=== PATIENT | female | born 1930 | race Caucasian/White ===

== ENCOUNTER 2017-03-22 10:23 | Emergency (ER) | payer OTHER, BC ==
[2017-03-22 11:11] LABS: ADD DIFF? YES; ADD MORPH? NO; ADD SCAN? NO; ATYPICAL LYMPHOCYTE FLAG 60 (0-99); FRAGMENT RBC FLAG 0 (0-99); HEMATOCRIT 35.8 % (38.0-47.0); HEMOGLOBIN 11.4 g/dL (12.6-16.3); LEFT SHIFT FLG 0 (0-99); LIPEMIA HEMOLYSIS FLAG 80 (0-99); MEAN CELL HEMOGLOBIN 30.6 pg (27.9-34.1); MEAN CELL HEMOGLOBIN CONCENTR. 31.8 g/dL (32.4-36.7); MEAN CELL VOLUME 96.2 fL (81.5-99.8); MEAN PLATELET VOLUME 10.7 fL (8.7-11.7); PLATELET CLUMPS FLAG 0 (0-99); PLATELET COUNT 186 10^3/uL (150-400); RED BLOOD CELL COUNT 3.72 10^6/uL (4.18-5.33); RED CELL DISTRIBUTION WIDTH 15.6 % (11.5-15.2)
--- NOTE | 2017-03-22 11:12 | CPEKG ---
Heart Rate: 105 RR Interval: 571 P-R Interval: 200 QRSD Interval: 74 QT Interval: 320 QTC Interval: 423 P [place]: 76 QRS [place]: -46 T Wave [place]: 71 EKG Severity - ABNORMAL ECG - EKG Impression: SINUS TACHYCARDIA EKG Impression: ATRIAL PREMATURE COMPLEX EKG Impression: PROBABLE LEFT ATRIAL ABNORMALITY EKG Impression: LEFT VENTRICULAR HYPERTROPHY EKG Impression: PROBABLE INFERIOR INFARCT, OLD EKG Impression: EXTENSIVE ANTERIOR INFARCT, AGE INDETERMINATE EKG Impression: No significant interval change from 06/15/15 Electronically Signed By: Aneudy Stearns 22-Mar-2017 14:14:00
--- NOTE | 2017-03-22 11:15 | EDPHY ---
H & P Stated Complaint: c/o 1 wk of prod cough/congestion Time Seen by Provider: 03/22/17 10:35 HPI/ROS: This patient called her daughter complaining of a sore throat of a 2 week duration this morning associated with a mild hoarse voice and a history of cough that is occasionally productive of sputum. Patient is unaware of the appearance of the sputum. She states that over the past day or 2 the throat pain is becomes severe and she is not eating or drinking as much due to the odynophagia. The throat pain worsens when she coughs. She has mild chest pain when she coughs but now with a deep breath. She has dyspnea at baseline and is on 2 L nasal cannula O2 at home at night. She is uncertain why she requires a baseline O2. Review of her recent CT angiogram of the chest revealed parenchymal scarring without evidence of PE or other findings. She does not feel that her cough is either worsening or improving recently. However she is having more pain with a cough. ROS: No high fevers or chills. She reports some baseline fatigue HEENT: She reports mild chronic nasal congestion that worsened over the past 2 weeks but no sinus pain. She states her throat is a burning discomfort peak intensity 8/10. No ear pain. No other HEENT complaints Pulmonary: No pleuritic pain. No respiratory distress. No hemoptysis. Cardiovascular: She denies lightheadedness. No chest pain while at rest. No lower extremity swelling or tenderness GI: No belly pain, nausea or vomiting. She does have reduced appetite. Her daughter reports that she only had 2 bites of yogurt this morning for breakfast. : No complaints Integumentary: No complaints Endocrine: Patient reports that her blood glucose has been normal in the morning and typically between 150 and low 200 in the evening recently. 10 point ROS is otherwise negative. Source: Patient, Family Exam Limitations: No limitations (Patient is also accompanied by her daughter who provides history) - Personal History Tetanus Vaccine Date: 2010 - Medical/Surgical History PMH: Her daughter reports that the patient has a history of congestive heart failure. However I reviewed an echocardiogram dated 12/30/2014 that revealed mild LVH, no wall motion abnormalities an EF at that time of 55 Pyelonephritis with sepsis Started on insulin 2 months ago for type 2 diabetes Leukemia-type unknown Hx Asthma: No Hx Chronic Respiratory Disease: No Hx Diabetes: Yes Hx Cardiac Disease: No Hx Renal Disease: No Hx Cirrhosis: No Hx Alcoholism: No Hx HIV/AIDS: No Hx Splenectomy or Spleen Trauma: No Other PMH: PMH: CVA - TEMPORAL ARTERITIS, HTN, DM, high cholesterol, back sx? ....previous compression fxs. cerebellar cva, each side, right sided CVA - Family History Significant Family History: No pertinent family hx - Social History Smoking Status: Former smoker Alcohol Use: None Drug Use: None Additional Social History: Patient lives independently. She does well in terms of taking her medications and living independently per her daughter. This daughter is leaving town with her tomorrow and they plan to have the mother stay with patient's other daughter who also lives in town to assist her with any health needs - Physical Exam Exam: Pleasant elderly female no acute distress. Her initial pulses elevated to around 110. Other vitals are normal except for O2 sat on room air in the mid 80s that corrects to mid 90s on her baseline 2 L nasal cannula O2. General Appearance: Alert, no distress. Eyes: Pupils equal and round no pallor or injection. ENT, Mouth: Mucous membranes moist. Oropharynx: No significant erythema is appreciated. No dysphonia. No drooling or stridor. Respiratory: Mildly diminished at the bases. No rales or rhonchi . Cardiovascular: Regular rate and rhythm. Mild systolic murmur. No JVD. No peripheral edema. No rub. Gastrointestinal: Abdomen is soft and nontender, no masses, bowel sounds normal. Neurological: GCS 15 with no focal sensory or motor deficits. Skin: Warm and dry, no rashes. Musculoskeletal: Neck is supple nontender. Extremities are symmetrical, full range of motion. Psychiatric: Mood and affect normal DIFFERENTIAL DIAGNOSIS: After history and physical exam differential diagnosis was considered for viral pharyngitis, strep pharyngitis, bronchitis, pneumonia, congestive heart failure, acute VA, pericarditis, myocarditis, pyelonephritis, Constitutional: Initial Vital Signs Temperature (C) 36.6 C 03/22/17 10:37 Heart Rate 118 H 03/22/17 10:37 Respiratory Rate 88 H 03/22/17 10:37 Blood Pressure 145/87 H 03/22/17 10:37 O2 Sat (%) 97 03/22/17 10:37 O2 Delivery Mode Room Air O2 (L/minute) 2 Allergies/Adverse Reactions: Iodinated Contrast Media - Oral and [Iodinated Contrast Media - IV Dye] Allergy (Verified 09/23/16 12:47) Home Medications: Medication Instructions Recorded Aspirin [Aspirin 325 mg (*)] 325 mg PO DAILY 07/10/14 Bimatoprost 0.01% [Lumigan 0.01% 1 drops EACHEYE HS 09/23/16 (*)] Furosemide [Lasix 20 MG (*)] 20 mg PO DAILY 09/23/16 Lisinopril [Zestril 5 mg (*)] 5 mg PO DAILY 09/23/16 Potassium Cl [Klor-Con 20 meq (*)] 20 meq PO BID 09/23/16 predniSONE [Prednisone] 15 mg PO DAILY 09/23/16 Calcium [HI-CLAIRE] 500 mg PO DAILY #30 tablet 09/26/16 Carvedilol [Coreg (*)] 12.5 mg PO BIDMEAL #60 tab 09/26/16 Cholecalciferol Vit D3 [Vitamin D3] 400 units PO DAILY #30 tab 09/26/16 levOFLOXACIN [levAQUIN (*)] 750 mg PO DAILY #3 tab 09/26/16 traMADol [Ultram 50 mg (*)] 25 - 50 mg PO Q6HRS PRN #30 tab 09/26/16 Benzonatate [Tessalon Pearles (RX)] 100 mg PO BID PRN #20 cap 03/22/17 Insulin NPH Human 03/22/17 Levalbuterol Inhaler [Xopenex Hfa 2 puffs IH Q4 PRN #1 mdi 03/22/17 Inhaler] Nitrofurantoin Macrobid [Macrobid 100 mg PO BID #10 cap 03/22/17 100 mg (RX)] Medical Decision Making - Diagnostics EKG Interpretation: 12 lead EKG performed shortly after arrival indication cough, dyspnea, rule out coronary syndrome EKG performed at 11:09 a.m. Sinus rhythm 105 Intervals: Normal throughout [place]: Normal Overall assessment sinus tachycardia with PAC, LVH by voltage criteria evidence of old anterior and inferior infarct. I compared this to prior EKG dated June 15, 2015 and appreciate no significant interval change. For complete read please refer to trace master Imaging Results: Imaging Impressions Chest X-Ray 03/22/17 10:53 Impression: Chronic cardiomegaly without failure. No pneumonia. Imaging: I viewed and interpreted images myself ED Course/Re-evaluation: After review of her labs with normal BNP for her age proceeded with a 500 cc normal saline bolus for dehydration with resolution of her tachycardia down to a pulse of 82 and resolution for lightheadedness. Xopenex neb with resolution of coughing. She felt symptomatic improvement in her O2 sat improved from mid to high 80s to low 90s after the Xopenex neb. Studies: Rapid strep is negative, chest x-ray ruled out pneumonia, CBC is normal, BNP is normal for age, troponin is negative, EKG without significant interval change, normal lactate Discussion: Patient presents with viral pharyngitis/laryngitis and viral bronchitis improving with treatment. I think that she had mild dehydration secondary to her throat pain which decreased her p.o. intake. She also has a urinalysis consistent with cystitis. I do not think she has pyelonephritis given lack of fever, CVA tenderness, nausea or vomiting. Counseled her and the patient careful regarding this. She is treated with Macrobid here. 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 No evidence today of pneumonia or sepsis. She improved with treatment. After carefully considering disposition with potential option of observation versus home with daughter I feel that the patient benefits most from home with daughter. Her daughter agrees with this plan. Prior to discharge the patient is feeling improved. I encouraged close follow up with her primary care physician, Dr. Washington for recheck sometime within the next 2-3 days. Patient understands the need to return emergency department for any significant worsening of her symptoms despite the treatment plan - Data Points Laboratory Results: Laboratory Results 03/22/17 11:00 03/22/17 11:00 03/22/17 03/22/17 03/22/17 Unknown 11:11 11:11 WBC RBC Hgb Hct MCV MCH MCHC RDW Plt Count MPV Neut % (Auto) Lymph % (Auto) [place] % (Auto) Eos % (Auto) Baso % (Auto) Nucleat RBC Rel Count Absolute Neuts (auto) Absolute Lymphs (auto) Absolute Monos (auto) Absolute Eos (auto) Absolute Basos (auto) Absolute Nucleated RBC Immature Gran % Seg Neutrophils % Lymphocytes % Monocytes % Immature Gran # Absolute Seg Neuts Absolute Lymphocytes Absolute Monocytes Platelet Estimate Smear Review By [facility] Lactic Acid Sodium Potassium Chloride Carbon Dioxide Anion Gap BUN Creatinine Estimated GFR Glucose Calcium Troponin I NT-Pro-B Natriuret Pep Urine Color YELLOW Urine Appearance CLEAR Urine pH 6.5 (5.0-7.5) Ur Specific [place] 1.020 (1.002-1.030) Urine Protein TRACE H (NEGATIVE) Urine Ketones NEGATIVE (NEGATIVE) Urine Blood 2+ H (NEGATIVE) Urine Nitrate POSITIVE H (NEGATIVE) Urine Bilirubin NEGATIVE (NEGATIVE) Urine Urobilinogen 0.2 EU EU (0.2-1.0) Ur Leukocyte Esterase NEGATIVE (NEGATIVE) Urine RBC 3-5 /hpf H /hpf (0-3) Urine WBC 5-10 /hpf H /hpf (0-3) Ur Epithelial Cells TRACE /lpf /lpf (NONE-1+) Ur Renal Epithelial Cell OCCASIONAL /hpf H /hpf (NONE SEEN) Urine Bacteria 4+ /hpf H /hpf (NONE SEEN) Urine Mucus TRACE /lpf /lpf (NONE-1+) Urine Glucose NEGATIVE (NEGATIVE) Group A Strep Screen NEGATIVE (NEGATIVE) Group A Strep DNA Pending 03/22/17 03/22/17 03/22/17 11:00 11:00 11:00 WBC 7.27 10^3/uL 10^3/uL (3.80-9.50) RBC 3.72 10^6/uL L 10^6/uL (4.18-5.33) Hgb 11.4 g/dL L g/dL (12.6-16.3) Hct 35.8 % L % (38.0-47.0) MCV 96.2 fL fL (81.5-99.8) MCH 30.6 pg pg (27.9-34.1) MCHC 31.8 g/dL L g/dL (32.4-36.7) RDW 15.6 % H % (11.5-15.2) Plt Count 186 10^3/uL 10^3/uL (150-400) MPV 10.7 fL fL (8.7-11.7) Neut % (Auto) Not Reported Lymph % (Auto) Not Reported [place] % (Auto) Not Reported Eos % (Auto) Not Reported Baso % (Auto) Not Reported Nucleat RBC Rel Count 0.0 % % (0.0-0.2) Absolute Neuts (auto) Not Reported Absolute Lymphs (auto) Not Reported Absolute Monos (auto) Not Reported Absolute Eos (auto) Not Reported Absolute Basos (auto) Not Reported Absolute Nucleated RBC 0.00 10^3/uL 10^3/uL (0-0.01) Immature Gran % Not Reported Seg Neutrophils % 28 % % Lymphocytes % 22 % % Monocytes % 50 % % Immature Gran # Not Reported Absolute Seg Neuts 2.0 K/MM3 K/MM3 (1.8-7) Absolute Lymphocytes 1.6 K/mm3 K/mm3 (1.0-4.8) Absolute Monocytes 3.6 K/mm3 H K/mm3 (0-0.8) Platelet Estimate ADEQUATE (ADEQ) Smear Review By Pending VBG Lactic Acid Sodium 136 mEq/L mEq/L (134-144) Potassium 3.4 mEq/L L mEq/L (3.5-5.2) Chloride 97 mEq/L mEq/L (97-110) Carbon Dioxide 27 mEq/l mEq/l (22-31) Anion Gap 12 mEq/L mEq/L (8-16) BUN 12 mg/dL mg/dL (7-23) Creatinine 0.8 mg/dL mg/dL (0.6-1.0) Estimated GFR > 60 Glucose 136 mg/dL H mg/dL (70-100) Calcium 9.0 mg/dL mg/dL (8.5-10.4) Troponin I 0.015 ng/mL ng/mL (0-0.034) NT-Pro-B Natriuret Pep 1750 pg/mL H pg/mL (0-450) Urine Color Urine Appearance Urine pH Ur Specific [place] Urine Protein Urine Ketones Urine Blood Urine Nitrate Urine Bilirubin Urine Urobilinogen Ur Leukocyte Esterase Urine RBC Urine WBC Ur Epithelial Cells Ur Renal Epithelial Cell Urine Bacteria Urine Mucus Urine Glucose Group A Strep Screen Group A Strep DNA 03/22/17 11:00 WBC RBC Hgb Hct MCV MCH MCHC RDW Plt Count MPV Neut % (Auto) Lymph % (Auto) [place] % (Auto) Eos % (Auto) Baso % (Auto) Nucleat RBC Rel Count Absolute Neuts (auto) Absolute Lymphs (auto) Absolute Monos (auto) Absolute Eos (auto) Absolute Basos (auto) Absolute Nucleated RBC Immature Gran % Seg Neutrophils % Lymphocytes % Monocytes % Immature Gran # Absolute Seg Neuts Absolute Lymphocytes Absolute Monocytes Platelet Estimate Smear Review By VBG Lactic Acid 1.3 mmol/L mmol/L (0.7-2.1) Sodium Potassium Chloride Carbon Dioxide Anion Gap BUN Creatinine Estimated GFR Glucose Calcium Troponin I NT-Pro-B Natriuret Pep Urine Color Urine Appearance Urine pH Ur Specific [place] Urine Protein Urine Ketones Urine Blood Urine Nitrate Urine Bilirubin Urine Urobilinogen Ur Leukocyte Esterase Urine RBC Urine WBC Ur Epithelial Cells Ur Renal Epithelial Cell Urine Bacteria Urine Mucus Urine Glucose Group A Strep Screen Group A Strep DNA Medications Given: Discontinued Medications Acetaminophen (Tylenol) 650 mg PO EDNOW ONE Stop: 03/22/17 11:28 Last Admin: 03/22/17 11:33 Dose: 650 mg Sodium Chloride (Ns) 500 mls @ 0 mls/hr IV ONCE ONE; Wide Open PRN Reason: Protocol Stop: 03/22/17 11:53 Last Admin: 03/22/17 12:02 Dose: 500 mls Levalbuterol (Xopenex 1.25mg Neb) 1.25 mg IH EDNOW ONE Stop: 03/22/17 12:11 Last Admin: 03/22/17 12:22 Dose: 1.25 mg Nitrofurantoin Macrocrystals (Macrobid) 100 mg PO EDNOW ONE PRN Reason: Protocol Stop: 03/22/17 12:11 Last Admin: 03/22/17 12:22 Dose: 100 mg Departure - Departure Disposition: Home, Routine, Self-Care Clinical Impression: Cystitis, Dehydration Acute bronchitis Qualifiers: Bronchitis organism: unspecified organism Qualified Code(s): J20.9 - Acute bronchitis, unspecified Pharyngitis Qualifiers: Pharyngitis/tonsillitis etiology: unspecified etiology Qualified Code(s): J02.9 - Acute pharyngitis, unspecified Condition: Good Instructions: Dehydration (ED), Urinary Tract Infection in Women (ED), Pharyngitis (ED), Acute Bronchitis (ED) Additional Instructions: Diagnoses:. Viral bronchitis 2. Viral pharyngitis 3. Bladder infection 4. Dehydration Plan: Drink plenty fluids MDX solution -rinse gargle spit if needed for sore throat. Tylenol in addition if needed 650-1000 mg per 6 hours while awake For cough-Xopenex inhaler with spacer and Tessalon Perles as needed For bladder infection-Macrobid antibiotic Call your primary care physician to arrange follow-up appointment for recheck in 2-3 days Return for any significant worsening despite treatment plan Referrals: Rebeca Washington MD [Primary Care Provider] - As per Instructions Prescriptions: Benzonatate [Tessalon Pearles (RX)] 100 mg PO BID PRN #20 cap PRN Reason: Cough, Mild Levalbuterol Inhaler [Xopenex Hfa Inhaler] 2 puffs IH Q4 PRN #1 mdi PRN Reason: Wheezing Nitrofurantoin Macrobid [Macrobid 100 mg (RX)] 100 mg PO BID #10 cap
[2017-03-22 11:23] LABS: ANION GAP 12 mEq/L (8-16); CARBON DIOXIDE 27 mEq/l (22-31); CHLORIDE 97 mEq/L (97-110); CREATININE 0.8 mg/dL (0.6-1.0); GLOMERULAR FILTRATION RATE > 60; GLUCOSE 136 mg/dL (70-100); POTASSIUM 3.4 mEq/L (3.5-5.2); SODIUM 136 mEq/L (134-144)
[2017-03-22 11:27] VITALS: RESP 16
[2017-03-22] MEDS ORDERED: ACETAMINOPHEN 325 MG TAB PO ONE (11:27)
[2017-03-22 11:31] LABS: COLOR YELLOW; LEUKOCYTE ESTERASE,URINE NEGATIVE (NEGATIVE); NITRITE,URINE POSITIVE (NEGATIVE); PH,URINE 6.5 (5.0-7.5)
[2017-03-22 11:41] LABS: BACTERIA 4+ /hpf (NONE SEEN); MUCUS TRACE /lpf (NONE-1+); RENAL EPITHELIAL CELLS OCCASIONAL /hpf (NONE SEEN)
[2017-03-22 11:42] LABS: TROPONIN I 0.015 ng/mL (0-0.034)
[2017-03-22] MEDS ORDERED: NS 500 ML IV ONE (11:52)
[2017-03-22 12:00] LABS: PLATELET ESTIMATE ADEQUATE (ADEQ)
[2017-03-22] MEDS ORDERED: NITROFURANTOIN MACROBID 100 MG CAP PO ONE (12:10)
[2017-03-22] MEDS ORDERED: LEVALBUTEROL 1.25 MG/3 ML DEYVIAL IH ONE (12:10)
[2017-03-22 14:11] VITALS: BP 104/64; PULSE 99; TEMP 98.4; O2SAT 94
== END 2017-03-22 14:10 | disposition home or self-care (01) ==
LOC: CED 10:23
DX: J02.9 Acute pharyngitis, unspecified (principal); J20.9 Acute bronchitis, unspecified; N30.90 Cystitis, unspecified without hematuria; E86.0 Dehydration; B96.89 Other specified bacterial agents as the cause of diseases classified elsewhere; I10 Essential (primary) hypertension; E11.9 Type 2 diabetes mellitus without complications; Z79.4 Long term (current) use of insulin; Z86.73 Personal history of transient ischemic attack (TIA), and cerebral infarction without residual deficits; Z87.891 Personal history of nicotine dependence; Z79.82 Long term (current) use of aspirin
CPT/HCPCS: 71010-PO; 80048-PO; 81003-PO; 81015-PO; 83605-PO; 83880-PO; 84484-PO; 85025-PO; 87880-PO

== ENCOUNTER → 2017-05-30 | Outpatient (CLI) | payer OTHER, BC | LOC: BHFA 10:45 | PROVIDERS: ATTEND Internal Medicine Cardiovascular Disease | DX: I50.9 Heart failure, unspecified (principal); R06.00 Dyspnea, unspecified ==

== ENCOUNTER → 2017-11-22 | Outpatient (CLI) | payer OTHER, BC | LOC: FIMAGING 10:23 | PROVIDERS: ATTEND Psychiatry & Neurology Neurology | DX: G57.22 Lesion of femoral nerve, left lower limb (principal); E11.9 Type 2 diabetes mellitus without complications; Z85.6 Personal history of leukemia; Z53.8 Procedure and treatment not carried out for other reasons ==

== ENCOUNTER 2017-12-08 14:00 | Outpatient (CLI) | payer OTHER, BC ==
[2017-12-08] MEDS ORDERED: PROPOFOL 200 MG/20 ML VIAL ONE (14:24)
[2017-12-08] MEDS ORDERED: PROPOFOL/EMULSION 500 MG/50 ML BOTTLE IV ONE (14:24)
[2017-12-08] MEDS ORDERED: GADOBUTROL 10 ML VIAL IVP ONE (15:44)
[2017-12-08] MEDS ORDERED: ALBUTEROL 3 ML DEYVIAL IH PRN (16:03)
[2017-12-08] MEDS ORDERED: DEXAMETHASONE 4 MG/ML VIAL IVP PRN (16:03)
[2017-12-08] MEDS ORDERED: ONDANSETRON 4 MG/2 ML VIAL IVP PRN (16:03)
[2017-12-08] MEDS ORDERED: NALOXONE HCL 0.4 MG/ML INJ IVP PRN (16:03)
--- NOTE | 2017-12-08 16:05 | PDANEPAE ---
ANE History of Present Illness MRI Pelvis ANE Past Medical History - Cardiovascular History Hx Hypertension: Yes Hx Arrhythmias: Yes Hx Chest Pain: No Hx Coronary Artery / Peripheral Vascular Disease: No Hx CHF / Valvular Disease: No Hx Palpitations: No Cardiovascular History Comment: a fib? - Pulmonary History Hx COPD: No Hx Asthma/Reactive Airway Disease: No Hx Recent Upper Respiratory Infection: No Hx Oxygen in Use at Home: Yes O2 in Use at Home (L/minute): 2LNC @ night Hx Sleep Apnea: No - Neurologic History Hx Cerebrovascular Accident: Yes Hx Seizures: No Hx Dementia: No Neurologic History Comment: 2009-CVA - Endocrine History Hx Diabetes: Yes Endocrine History Comment: Type II - Renal History Hx Renal Disorders: No - Liver History Hx Hepatic Disorders: No - Neurological & Psychiatric Hx Hx Neurological and Psychiatric Disorders: No - Cancer History Hx Cancer: No - Congenital Disorder History Hx Congenital Disorders: No - GI History Hx Gastrointestinal Disorders: No - Other Health History Other Health History: macular degeneration. glaucoma - Chronic Pain History Chronic Pain: Yes - Surgical History Prior Surgeries: gall bladder removal ANE Review of Systems Review of Systems: - Exercise capacity METS (RN): 2 METS ANE Patient History - Allergies Allergies/Adverse Reactions: Iodinated Contrast- Oral and IV Dye [Iodinated Contrast Media - IV Dye] Allergy (Verified 09/23/16 12:47) - Home Medications Home Medications: Aspirin [Aspirin 325 mg (*)] 325 mg PO DAILY 07/10/14 [Last Taken 12/07/17] Bimatoprost 0.01% [Lumigan 0.01% (*)] 1 drops EACHEYE HS 09/23/16 [Last Taken ] Lisinopril [Zestril 5 mg (*)] 5 mg PO DAILY 09/23/16 [Last Taken 12/07/17] predniSONE [Prednisone] 20 mg PO DAILY 09/23/16 [Last Taken 12/07/17] Carvedilol [Coreg (*)] 12.5 mg PO DAILY 12/01/17 [Last Taken 12/07/17] Herbals/Supplements -Info Only 12/01/17 [Last Taken Unknown] Lantus 9 units 12/01/17 [Last Taken 12/07/17 22:00] Multivitamins [Multivitamin (*)] 1 each PO DAILY 12/01/17 [Last Taken 12/07/17] Pregabalin [Lyrica 75mg (*)] DAILY 12/01/17 [Last Taken 12/07/17] Dorzolamide 2% 1 drop OST 12/08/17 [Last Taken 12/07/17] - Smoking Hx Smoking Status: Former smoker - Family Anes Hx Family Hx Anesthesia Complications: none ANE Labs/Vital Signs - Vital Signs Height: 165.1 cm Weight: 65.771 kg ANE Physical Exam - Airway Neck exam: FROM Mallampati Score: Class 2 - Pulmonary Pulmonary: clear to auscultation - Cardiovascular Cardiovascular: regular rate and rhythym - ASA Status ASA Status: III ANE Anesthesia Plan Anesthesia Plan: GA w LMA
--- NOTE | 2017-12-08 16:47 | POSTANESTH ---
Post Anesthetic Evaluation Cardiovascular Status: Normal, Stable Respiratory Status: Normal, Stable Level of Consciousness/Mental Status: Mildly Sleepy, Arousable Pain Control: Adequate, Prn Tx Ordered Nausea/Vomiting Control: Adequate, Prn Tx Ordered Complications Possibly Related to Anesthesia: None Noted
[2017-12-08] MEDS ORDERED: fentaNYL 100 MCG/2 ML INJ ONE (17:02)
[2017-12-08] MEDS: fentaNYL 100 MCG/2 ML INJ IVP PRN ×3 (17:03→17:14)
[2017-12-08 17:46] VITALS: TEMP 97.7
[2017-12-08 17:50] VITALS: PULSE 95; RESP 17
[2017-12-08 18:33] VITALS: O2SAT 89
[2017-12-08 18:49] VITALS: BP 128/61
== END 2017-12-08 18:55 | disposition home or self-care (01) ==
LOC: FIMAGING 14:00
PROVIDERS: ATTEND Psychiatry & Neurology Neurology
DX: M99.86 Other biomechanical lesions of lower extremity (principal); Z85.6 Personal history of leukemia
CPT/HCPCS: 72197; A9585; J2704; J3010

== ENCOUNTER 2018-11-13 05:09 | Inpatient (IN) | payer OTHER, BC ==
[2018-11-13] MEDS ORDERED: NS 1,000 ML IV ONE (05:38)
--- NOTE | 2018-11-13 05:38 | EDPHY ---
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 ....previous compression fxs. Uses wheelchair when leaves apartment, otherwise uses furntiture - Social History Smoking Status: Former smoker Time Seen by Provider: 11/13/18 05:38 HPI/ROS: HPI CHIEF COMPLAINT: Diarrhea, generalized weakness, abdominal cramping HISTORY OF PRESENT ILLNESS: This patient 88-year-old female, presents to the emergency room generalized weakness since Friday, diarrhea, decreased appetite not eating or drinking anything. Patient has a history of hypertension, diabetes, history of CVA, hyperlipidemia presents emergency generalized weakness and diarrhea. She has had a history of C diff in the past. No vomiting. Denies chest pain. Main complaint fatigue, generalized weakness. Diarrhea. Abdominal cramps and bloating. Past Medical History: History of hypertension, diabetes, CVA, hyperlipidemia, C diff Past Surgical History: No recent surgery Social History: Lives locally. Daughter is at bedside. Family History: Noncontributory ROS REVIEW OF SYSTEMS: 10 Systems were reviewed and negative with the exception of the elements mentioned in the history of present illness. Exam Constitutional nontoxic no acute distress triage nursing summary reviewed, vital signs reviewed, awake/alert. Eyes normal conjunctivae and sclera, EOMI, PERRLA. HENT normal inspection, atraumatic, moist mucus membranes, no epistaxis, neck supple/ no meningismus, no raccoon eyes. Respiratory clear to auscultation bilaterally, normal breath sounds, no respiratory distress, no wheezing. Cardiovascular rate normal, regular rhythm, no murmur, no edema, distal pulses normal. Gastrointestinal soft, non-tender, no rebound, no guarding, normal bowel sounds, no distension, no pulsatile mass. Genitourinary no CVA tenderness. Musculoskeletal no midline vertebral tenderness, full range of motion, no calf swelling, no tenderness of extremities, no meningismus, good pulses, neurovascularly intact. Skin pink, warm, & dry, no rash, skin atraumatic. Neurologic awake, alert and oriented x 3, AAOx3, moves all 4 extremities equally, motor intact, sensory intact, CN II-XII intact, normal cerebellar, normal vision, normal speech. Psychiatric normal mood/affect. Heme/Lymph/Immune no lymphadenopathy. Differential Diagnosis: Differential diagnosis includes but is not limited to and in no particular order: Infection, dehydration, electrolyte disturbance, C diff, Bowel obstruction, appendicitis, gallbladder disease, diverticulitis, colitis, enteritis, perforated viscus, gastritis, GERD, esophagitis, urinary tract infection, pyelonephritis, kidney stones Medical Decision Making: Plan for this patient IV establishment IV fluid bolus , basic blood work, stool studies, CT scan abdomen pelvis with IV contrast, rule out colitis in the setting of abdominal pain and bad diarrhea, check UA. Re-evaluation: 0753: CT scan abdomen pelvis without contrast shows no evidence of colitis however does show an intraluminal mass of the distal ileum. I have admitted this patient to the hospitalist service for generalized weakness , dehydration, diarrhea. I have ordered stool studies. I spoke with Jaclyn who will admit the patient to Dr. Alexandru Powers. Plan for admission for generalized weakness, dehydration, diarrhea Please see full dictation of the CT scan abdomen pelvis without contrast. ( Jose Mayo) Constitutional: Initial Vital Signs Temperature (C) 37.3 C 11/13/18 05:12 Heart Rate 99 11/13/18 05:12 Respiratory Rate 16 11/13/18 05:12 Blood Pressure 123/74 H 11/13/18 05:12 O2 Sat (%) 92 11/13/18 05:12 O2 Delivery Mode Room Air Allergies/Adverse Reactions: Iodinated Contrast- Oral and IV Dye Allergy (Unknown, Verified 11/13/18 05:15) Home Medications: Medication Instructions Recorded Aspirin [Aspirin 325 mg (*)] 325 mg PO DAILY 07/10/14 predniSONE [Prednisone] 20 mg PO DAILY 09/23/16 Multivitamins [Multivitamin (*)] 1 each PO DAILY 12/01/17 Carvedilol [Coreg (*)] 3.125 mg PO BIDMEAL 04/16/18 Dorzolamide/Timolol [Cosopt (*)] 1 drops EACHEYE BID 04/16/18 Latanoprost 0.005% [Xalatan 0.005% 1 drops EACHEYE HS 04/16/18 (*)] Cholecalciferol Vit D3 [Vitamin D3 1,000 units PO DAILY 11/13/18 (*)] Insulin Glargine,Hum.rec.anlog 44 unit SQ HS 11/13/18 [Klever Martin U-100] Medical Decision Making ED Course/Re-evaluation: This patient is a boarder here in the emergency department. We are awaiting urinalysis however she has been incontinent several times. She is refusing Hollingsworth catheter. Additionally, the urine smells quite foul. I will give her 1 dose of ceftriaxone for a presumptive UTI until we can obtain her urinalysis ( Malcolm Adams) - Data Points Laboratory Results: Laboratory Results 11/13/18 06:25 11/13/18 05:56 Medications Given: Aspirin (Aspirin) 325 mg PO DAILY [facility] Stop: 05/13/19 08:59 Last Admin: 11/14/18 15:53 Dose: 325 mg Calcium/Vitamin D (Calcium Carb W/Vit D) 500 mg PO BID [facility] Stop: 05/13/19 20:59 Last Admin: 11/14/18 20:12 Dose: 500 mg Carvedilol (Coreg) 3.125 mg PO BIDMEAL [facility] Stop: 05/12/19 17:59 Last Admin: 11/14/18 15:53 Dose: 3.125 mg Dorzolamide/Timolol (Cosopt) 1 drops EACHEYE BID [facility] Stop: 05/12/19 20:59 Last Admin: 11/14/18 20:23 Dose: Not Given Enoxaparin Sodium (Lovenox) 40 mg SC DAILY [facility] Stop: 05/13/19 08:59 Last Admin: 11/14/18 11:20 Dose: 40 mg Sodium Chloride (Ns) 1,000 mls @ 75 mls/hr IV .CONT [facility]IO Stop: 05/13/19 19:59 Last Admin: 11/14/18 20:12 Dose: 1,000 mls Insulin Human Lispro (Humalog Lispro) 0 unit SC TIDMEAL ANTONIO PRN Reason: Protocol Stop: 05/12/19 11:59 Last Admin: 11/14/18 18:16 Dose: 4 units Latanoprost (Xalatan 0.005%) 1 drops EACHEYE HS [facility] Stop: 05/12/19 20:59 Last Admin: 11/14/18 20:24 Dose: Not Given Prednisone (Prednisone) 20 mg PO DAILY [facility] Stop: 05/13/19 08:59 Last Admin: 11/14/18 15:53 Dose: 20 mg Discontinued Medications Sodium Chloride (Ns) 1,000 mls @ 0 mls/hr IV EDNOW ONE; Wide Open PRN Reason: Protocol Stop: 11/13/18 05:39 Last Admin: 11/13/18 06:01 Dose: 1,000 mls Sodium Chloride (Ns) 1,000 mls @ 75 mls/hr IV CONT [facility] Stop: 05/12/19 09:29 Last Admin: 11/14/18 05:09 Dose: 1,000 mls Ceftriaxone Sodium/Dextrose (Rocephin 1 Gm (Premix)) 50 mls @ 100 mls/hr IV EDNOW ONE PRN Reason: Protocol Stop: 11/13/18 10:17 Last Admin: 11/13/18 10:35 Dose: 50 mls Dextrose/Sodium Chloride (D5w Ns) 1,000 mls @ 75 mls/hr IV CONT [facility] Stop: 11/15/18 03:04 Last Admin: 11/14/18 14:43 Dose: 1,000 mls Departure - Departure Disposition: [facility] Acute Clinical Impression: Generalized weakness Abdominal pain Qualifiers: Abdominal location: generalized Qualified Code(s): R10.84 - Generalized abdominal pain Diarrhea Qualifiers: Diarrhea type: unspecified type Qualified Code(s): R19.7 - Diarrhea, unspecified Condition: Fair
[2018-11-13] MEDS ORDERED: IOHEXOL 300 mgI/ML (OMNIPAQUE) 150 ML BTL IV ONE (06:05)
[2018-11-13 06:56] LABS: PLATELET COUNT 160 10^3/uL (150-400)
--- NOTE | 2018-11-13 08:42 | PDGENHP ---
History and Physical - Chief Complaint decreased po intake with fatigue. - History of Present Illness Patient is an 88-year-old female with past medical history of CVA, hypertension , CML, glaucoma, insulin-dependent diabetes, temporal arteritis and C diff in 2013 was brought in by her daughters for the concerns of generalized weakness generalized aches and pains. They said that over the last couple of weeks their mom has been eating less has had generalized weakness and complains of pain all over her entire body. The patient is alert and oriented tells me that she has not been eating well which is due to decreased appetite. She also has had watery diarrhea over the last few days. She does have some abdominal cramping and discomfort which is generalized and diffuse. She denied any nausea vomiting. She denied any fevers or chills, cough, chest pain. History Information - Allergies/Home Medication List Allergies/Adverse Reactions: Iodinated Contrast- Oral and IV Dye Allergy (Unknown, Verified 11/13/18 05:15) Home Medications: Aspirin [Aspirin 325 mg (*)] 325 mg PO DAILY 07/10/14 [Last Taken 04/15/18] predniSONE [Prednisone] 20 mg PO DAILY 09/23/16 [Last Taken 04/15/18] Multivitamins [Multivitamin (*)] 1 each PO DAILY 12/01/17 [Last Taken 04/15/18] Carvedilol [Coreg (*)] 3.125 mg PO BIDMEAL 04/16/18 [Last Taken 04/15/18] Dorzolamide/Timolol [Cosopt (*)] 1 drops EACHEYE BID 04/16/18 [Last Taken ] Latanoprost 0.005% [Xalatan 0.005% (*)] 1 drops EACHEYE HS 04/16/18 [Last Taken 04/15/18] Cholecalciferol Vit D3 [Vitamin D3 (*)] 1,000 units PO DAILY 11/13/18 [Last Taken Unknown] Insulin Glargine,Hum.rec.anlog [Klever Martin U-100] 44 unit SQ HS 11/13/18 [ Last Taken Unknown] I have personally reviewed and updated: family history, medical history, social history, surgical history Past Medical History: temporal arteritis, htn, cva, glaucoma, iddm, diagnosed with bone cancer. - Past Medical History arthritis, CHF, CVA, diabetes type 2, hypertension Additional medical history: Temporal arteritis. Chronic leukemia, followed by Dr. Adame. Multiple compression fractures s/p kyphoplasty T6, T11. B/L vertebral artery occlusion - Surgical History Additional surgical history: kyphoplasty x2 - Family History Positive for: non-pertinent - Social History Smoking Status: Former smoker Additional social history: Lives alone in an apartment Review of Systems Review of Systems: ROS: 10pt was reviewed & negative except for what was stated in HPI & below Physical Exam Physical Exam: Temp Pulse Resp BP Pulse Ox 37.3 C 104 H 20 154/71 H 92 11/13/18 05:12 11/13/18 06:00 11/13/18 06:00 11/13/18 06:00 11/13/18 06:00 Constitutional: no apparent distress, appears nourished, not in pain Eyes: PERRL, anicteric sclera, EOMI Ears, Nose, Mouth, Throat: moist mucous membranes, hearing normal, ears appear normal, no oral mucosal ulcers Cardiovascular: regular rate and rhythym, no murmur, rub, or gallop, No edema Respiratory: no respiratory distress, no rales or rhonchi, clear to auscultation Gastrointestinal: normoactive bowel sounds, soft, non-tender abdomen, tenderness Genitourinary: no bladder fullness, no bladder tenderness Skin: warm, normal color, no rashes or abrasions, no fluctuance, no induration, No mottled Musculoskeletal: full muscle strength, no muscle tenderness, normal joint ROM, no joint effusions Psychiatric: interacting appropriately, not anxious, not encephalopathic, thought process linear Lymph, Heme, Immunologic: no cervical LAD, no supraclavicular LAD Lab Data & Imaging Review 11/13/18 06:25 11/13/18 05:56 WBC 12.23 10^3/uL (3.80-9.50) H 11/13/18 06:25 RBC 3.08 10^6/uL (4.18-5.33) L 11/13/18 06:25 Hgb 10.4 g/dL (12.6-16.3) L 11/13/18 06:25 Hct 33.0 % (38.0-47.0) L 11/13/18 06:25 MCV 107.1 fL (81.5-99.8) H 11/13/18 06:25 MCH 33.8 pg (27.9-34.1) 11/13/18 06:25 MCHC 31.5 g/dL (32.4-36.7) L 11/13/18 06:25 RDW 14.2 % (11.5-15.2) 11/13/18 06:25 Plt Count 160 10^3/uL (150-400) 11/13/18 06:25 MPV 11.2 fL (8.7-11.7) 11/13/18 06:25 Neut % (Auto) Not Reported 11/13/18 06:25 Lymph % (Auto) Not Reported 11/13/18 06:25 Avery % (Auto) Not Reported 11/13/18 06:25 Eos % (Auto) Not Reported 11/13/18 06:25 Baso % (Auto) Not Reported 11/13/18 06:25 Nucleat RBC Rel Count Not Reported 11/13/18 06:25 Absolute Neuts (auto) Not Reported 11/13/18 06:25 Absolute Lymphs (auto) Not Reported 11/13/18 06:25 Absolute Monos (auto) Not Reported 11/13/18 06:25 Absolute Eos (auto) Not Reported 11/13/18 06:25 Absolute Basos (auto) Not Reported 11/13/18 06:25 Absolute Nucleated RBC Not Reported 11/13/18 06:25 Immature Gran % Not Reported 11/13/18 06:25 Seg Neutrophils % 45.0 % 11/13/18 06:25 Band Neutrophils % 1.0 % 11/13/18 06:25 Lymphocytes % 12.0 % 11/13/18 06:25 Monocytes % 41.0 % 11/13/18 06:25 Eosinophils % 0.0 % 11/13/18 06:25 Basophils % 1.0 % 11/13/18 06:25 Metamyelocytes % 0.0 % 11/13/18 06:25 Myelocytes % 0.0 % 11/13/18 06:25 Promyelocytes % 0.0 % 11/13/18 06:25 Blast Cells % 0.0 % 11/13/18 06:25 Immature Gran # Not Reported 11/13/18 06:25 Absolute Seg Neuts 5.50 10^3/uL (1.70-6.50) 11/13/18 06:25 Absolute Band Neuts 0.12 10^3/uL (0.00-0.70) 11/13/18 06:25 Absolute Lymphocytes 1.47 10^3/uL (1.00-3.00) 11/13/18 06:25 Absolute Monocytes 5.01 10^3/uL (0.30-0.80) H 11/13/18 06:25 Absolute Eosinophils 0.00 10^3/uL (0.03-0.40) L 11/13/18 06:25 Absolute Basophils 0.12 10^3/uL (0.02-0.10) H 11/13/18 06:25 Absolute Metamyelocyte 0.00 10^3/mL (0.00-0.00) 11/13/18 06:25 Absolute Myelocytes 0.00 10^3/mL (0.00-0.00) 11/13/18 06:25 Absolute Promyelocytes 0.00 10^3/uL (0.00-0.00) 11/13/18 06:25 Absolute Plasma Cells 0.00 10^3/uL (0.00-0.00) 11/13/18 06:25 Nucleated RBCs 0 /100 WBC (0-0) 11/13/18 06:25 Atypical Lymphocytes 2+ H 11/13/18 06:25 Absolute Blast Cells 0.00 10^3/uL (0.00-0.00) 11/13/18 06:25 Plasma Cells % 0.0 % 11/13/18 06:25 Platelet Estimate ADEQUATE (ADEQ) 11/13/18 06:25 VBG Lactic Acid 1.4 mmol/L (0.7-2.1) 11/13/18 06:20 Sodium 136 mEq/L (135-145) 11/13/18 05:56 Potassium 4.9 mEq/L (3.5-5.2) 11/13/18 05:56 Chloride 107 mEq/L (97-110) 11/13/18 05:56 Carbon Dioxide 20 mEq/l (22-31) L 11/13/18 05:56 Anion Gap 9 mEq/L (6-14) 11/13/18 05:56 BUN 20 mg/dL (7-23) 11/13/18 05:56 Creatinine 0.9 mg/dL (0.6-1.0) 11/13/18 05:56 Estimated GFR 59 11/13/18 05:56 Glucose 146 mg/dL (70-100) H 11/13/18 05:56 Calcium 8.6 mg/dL (8.5-10.4) 11/13/18 05:56 Total Bilirubin 2.4 mg/dL (0.1-1.4) H 11/13/18 05:56 Conjugated Bilirubin 0.8 mg/dL (0.0-0.5) H 11/13/18 05:56 Unconjugated Bilirubin 1.6 mg/dL (0.0-1.1) H 11/13/18 05:56 AST 63 IU/L (14-46) H 11/13/18 05:56 ALT 26 IU/L (9-52) 11/13/18 05:56 Alkaline Phosphatase 44 IU/L (38-126) 11/13/18 05:56 Total Protein 6.9 g/dL (6.3-8.2) 11/13/18 05:56 Albumin 3.7 g/dL (3.5-5.0) 11/13/18 05:56 Lipase 200 IU/L (23-300) 11/13/18 05:56 Specimen Hemolysis 190 11/13/18 05:56 Assessment & Plan Assessment: Abdominal pain- who I reviewed the CT scan of her abdomen which shows a 2.6 cm intraluminal mass near her cecum and ileum. I discussed the case with Radiology who feels that better characterization would be available if we obtained a small-bowel follow-through with barium swallow. She has a mild white count and transaminitis with mild hyperbilirubinemia and so can't rule out concurrent infection as well. She has a history of C diff in 2014 x2. -barium swallow with small bowel follow-through -GI pathogen panel -IV hydration -nothing by mouth except for sips -monitor LFTs -may need general surgery evaluation but will await results of small bowel follow through Diarrhea (Acute)- could be related to infection or to partial obstruction by mass found in the cecum. Check-in GI pathogen panel and obtaining small-bowel follow-through today Macrocytic anemia- no history of alcohol abuse. Does have a history of CML. Will check B12 and folate to start Insulin-dependent diabetes- takes Lantus and basaglar. Hold and cover with sliding scale insulin History of CVA-on aspirin and Coreg. Continue for now Hypertension- continue carvedilol Glaucoma-continue Xalatan and Cosopt eyedrops Giant cell arteritis- takes prednisone 20 mg daily will continue for now Prophylaxis- SCDs and heparin Fluids-intravenous saline Electrolytes-within normal limits Nutrition-NPO with sips Cor-full code Dispo-will admit inpatient expect greater than 2 midnight stay for evaluation of mass and weakness
[2018-11-13] MEDS ORDERED: ACETAMINOPHEN 325 MG TAB PO PRN (09:20)
[2018-11-13] MEDS ORDERED: ONDANSETRON DISINTEGRATING 4 MG TAB PO PRN (09:20)
[2018-11-13] MEDS ORDERED: ONDANSETRON 4 MG/2 ML VIAL IVP PRN (09:20)
[2018-11-13] MEDS ORDERED: D50W 25 GM/50 ML SYR IVP PRN (09:25)
--- NOTE | 2018-11-13 14:12 | PDMN ---
Medical Necessity Medical necessity: Pt meets IP criteria as of 11/13/18 per and MCG M-05 ( abdominal pain, undiagnosed); est los > 2 mn for ongoing tx and management of abdominal pain with diarrhea, weakness, and loss of appetite as well as intraluminal mass noted on CT; requiring further workup, pain management, IVF, and management of other conditions including macrocytic anemia, insulin dependent DM, CVA, HTN, glaucoma, and giant cell arthritis
[2018-11-13] MEDS: INSULIN LISPRO 100 UNIT/ML SC SCH ×2 (14:40→18:15)
[2018-11-13] MEDS: NS 1,000 ML IV SCH (16:44)
[2018-11-13] MEDS: CARVEDILOL 3.125 MG TAB PO SCH (18:20)
[2018-11-13] MEDS: DORZOLAMIDE/TIMOLOL 10 ML OPHT.BTL EACHEYE SCH (21:02)
[2018-11-13] MEDS: LATANOPROST 0.005% 2.5 ML OPHT DROPS EACHEYE SCH (21:02)
[2018-11-14] MEDS: NS 1,000 ML IV SCH ×2 (05:09→20:12)
[2018-11-14 05:22] LABS: PLATELET COUNT 156 10^3/uL (150-400)
[2018-11-14] MEDS ORDERED: CIPROFLOXACIN 500 MG TAB PO SCH (09:00)
[2018-11-14] MEDS: INSULIN LISPRO 100 UNIT/ML SC SCH ×3 (10:30→18:16)
[2018-11-14] MEDS: ENOXAPARIN 40 MG/0.4 ML SYR SC SCH (11:20)
[2018-11-14] MEDS: CARVEDILOL 3.125 MG TAB PO SCH ×2 (11:22→15:53)
[2018-11-14] MEDS: ASPIRIN 325 MG TAB PO SCH ×2 (11:22→15:53)
[2018-11-14] MEDS: predniSONE 10 MG TAB PO SCH ×2 (11:23→15:53)
[2018-11-14] MEDS: DORZOLAMIDE/TIMOLOL 10 ML OPHT.BTL EACHEYE SCH ×2 (11:23→20:23)
[2018-11-14] MEDS ORDERED: D5W NS 1,000 ML IV SCH (13:45)
--- NOTE | 2018-11-14 16:12 | ASMTCMCOM ---
CM Note CM Note Notes: Pt is a 88 year old female, presents with generalized pain and weakness. Pt has history of CVA, hypertension, CML, glaucoma, diabetes, temporal arteritis and C-diff in 2014. Bowel scan today. PT recommending SNF. CM to follow. Plan: SNF Date Signed: 11/14/2018 04:11 PM Electronically Signed By:ELLA Khan
--- NOTE | 2018-11-14 19:14 | HOSPPROG ---
Hospitalist Progress Note Assessment/Plan: #E coli (Eaec) GI infection: supportive care. Will have to monitor closely with abx (needed for UTI) #UTI: culture pending, Ceftriaxone #Weakness: uses furniture at home to ambulate; PT/OT evaluation #Leukocytosis: resolved #Diet: ADAT #Disp: inpatient admission for IVFs, PT Subjective: no BM today; watery stool yesterday Objective: Vital Signs Temp Pulse Resp BP Pulse Ox 37.3 C 90 18 128/51 H 93 11/14/18 15:43 11/14/18 15:53 11/14/18 15:43 11/14/18 15:53 11/14/18 15:43 Microbiology 11/13/18 21:15 Gastrointestinal Tract Panel (PCR) - Final Stool E.coli Enteroaggregative(Eaec) Laboratory Results 11/14/18 04:58 11/14/18 04:58 11/13/18 11/14/18 11/15/18 05:59 05:59 05:59 Intake Total 500 Balance 500 - Time Spent With Patient Time Spent with Patient: greater than 35 minutes Time Spent with Patient: Greater than 35 minutes spent on this patients care, greater than 50% of time spent counseling, educating, and coordinating care regarding the above mentioned plan. - Physical Exam Constitutional: other (pale) Ears, Nose, Mouth, Throat: moist mucous membranes Cardiovascular: regular rate and rhythym Respiratory: no respiratory distress Gastrointestinal: normoactive bowel sounds, soft, non-tender abdomen Genitourinary: no bladder fullness Skin: warm Musculoskeletal: full muscle strength Neurologic: AAOx3 ICD10 Worksheet Patient Problems: Problems Problem Status Onset Abdominal pain Acute Diarrhea Acute Weakness Acute Acute delirium Acute Adrenal suppression Acute C. difficile colitis Acute C. difficile diarrhea Acute 12/30/14 DVT prophylaxis Acute Dizziness Acute Fever Acute Left ankle pain Acute Lethargy Acute Macrocytosis Acute Sepsis Acute Systolic murmur Acute Tachycardia Acute Temporal arteritis Acute Tongue ulceration Acute UTI (urinary tract infection) Acute
[2018-11-14] MEDS: CALCIUM CARB W/VIT D 500 MG TAB PO SCH (20:12)
[2018-11-14] MEDS: LATANOPROST 0.005% 2.5 ML OPHT DROPS EACHEYE SCH (20:24)
[2018-11-14] MEDS ORDERED: PROTOCOL K PHOSPHATE 1 DOSE IV PRN (21:05)
[2018-11-15] MEDS: CALCIUM CARB W/VIT D 500 MG TAB PO SCH ×2 (09:06→21:18)
[2018-11-15] MEDS: RIFAXIMIN 200 MG TAB PO SCH ×3 (09:06→21:18)
[2018-11-15] MEDS: CARVEDILOL 3.125 MG TAB PO SCH ×2 (09:07→16:05)
[2018-11-15] MEDS: predniSONE 10 MG TAB PO SCH (09:07)
[2018-11-15] MEDS: ASPIRIN 325 MG TAB PO SCH (09:07)
[2018-11-15] MEDS: ENOXAPARIN 40 MG/0.4 ML SYR SC SCH (09:10)
[2018-11-15] MEDS: NS 1,000 ML IV SCH (09:13)
[2018-11-15] MEDS: INSULIN LISPRO 100 UNIT/ML SC SCH ×3 (09:39→17:38)
[2018-11-15] MEDS: DORZOLAMIDE/TIMOLOL 10 ML OPHT.BTL EACHEYE SCH ×2 (09:39→21:19)
[2018-11-15] MEDS ORDERED: K PHOS 10 MMOL in D5W 250 ML IV ONE (12:00)
--- NOTE | 2018-11-15 14:25 | PDCONSULT ---
[employer] Note: Infectious Diseases Consult Note Impression: 88-year-old woman with acute diarrhea and positive stool PCR test for entero aggregate of E coli. It is unclear if this is truly pathogenic in this setting but given her chronic prednisone use at 20 mg daily is reasonable to treat this as though up for traveler's diarrhea with rifaximin, which also gives a secondary benefits of being ineffective preventive therapy for C diff colitis while receiving systemic ceftriaxone. The stool multiplex PCR testing also has Cryptosporidium, cycles for, Giardia on the panel which are all negative; her chronic steroid use does put her at risk for 1 of these more opportunistic type pathogens. If her diarrhea continues in spite of rifaximin may need to consider further stool testing to evaluate for micro spur radius species, cysto Isospora, and more specific testing for Giardia. 1. Acute infectious diarrhea with anteroapical gait of E coli 2. Pyuria likely representing cystitis 3. History of temporal arteritis 4. Immunosuppressed patient due to prednisone at 20 mg daily; 0.3 milligrams/ kilogram per day 5. 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 Start rifaximin 200 mg p.o. Three times daily x3 days 2. Agree with short course of ceftriaxone for pyuria, urine culture pending 3. Discussed potential side effects of ceftriaxone which include antibiotic associated diarrhea, rash, C diff colitis and the fact that rifaximin will likely prevent C diff colitis Sp Hooker MD Infectious Diseases Chief Complaint: Diarrhea Requesting Provider: Dr. Stahl Reason for Referral: Consultation was requested by Dr. Stahl regarding antimicrobial management. HPI: 88-year-old woman presented to the emergency department with 1-2 days of diarrhea. She notes no episodes of diarrhea until the day prior to admission when she developed loose to watery stools that came on without a clear precipitant. She did not have any abdominal pain prior to, during, or after moving her bowels. She continued to have 3-5 watery bowel movements per day which prompted her to come to the emergency department. She notes ongoing diarrhea since admission with an episode to day that occurred after eating regular food. She does note that she has had a poor appetite and has not been eating much at home dating back approximately 2-3 weeks prior to admission. In spite of that she is not certain if she was avoiding food because she had diarrhea dating back that far. She has not had fever or night sweats prior to admission but she does state that she has been chilled more recently. She notes no rash around the time of onset of diarrhea and no rash dating back weeks. She has not had nausea or emesis, but her appetite has been so poor she states she has not been avoiding eating. She use to purchase bag to let is from the store up until the last outbreak of E coli which prompted her to stop eating store bowel lettuce. She notes no new foods or purchasing foods from [employer] directly. She lives alone sono contacts of eaten the same foods. She does have a temporal arteritis and takes 20 mg of prednisone daily. She has been attempted to be tapered to lower prednisone doses in the past but her temporal arteritis flares at anything below 20 mg daily. She has had to have episodes where the prednisone dose was increased but this is not occurred in the recent past. She is noted to have CMML but is not on therapy. She has no pets at home, has not visited friends or family on farms or ranch is , she does not live near farm or [place]. She has not traveled internationally for many years. She has city water and does not drink well water. Travel history: No history of travel in the past year. Past Medical History: Temporal arteritis, takes prednisone 20 mg daily chronically; CMML not currently on therapy Past Surgical History: No abdominal surgeries Social History: Does not currently smoke cigarettes, stop smoking decades prior to admission; drinks a occasional alcoholic beverage, no consumption of marijuana products; no illicit drug use; lives alone Family History: No family members with recurrent infections Allergies: IV contrast Medications: Reviewed in medical record and confirmed with patient. ROS: 10 organ systems reviewed; pertinent positives and negatives listed in the HPI, all other organ systems negative. Physical Exam: VS: Reviewed Gen: No acute distress; Breathing comfortably without supplemental oxygen; Able to speak in complete sentences Eyes: No conjunctival injection; No scleral icterus HENT: No gross deformities Neck: No limitation in range of motion Pulm: Breath sounds clear to the bases bilaterally; No wheeze, rhonchi, or rales CV: Normal S1 and S2; Regular rate and rhythm; No murmurs, rubs, or gallops; No lower extremity edema Abd: Not distended; obese; hyper-active bowel sounds; Soft; Non-tender Skin: A full skin exam including exposed bilateral upper extremities, bilateral lower extremities to the knees, face, neck, abdomen, chest, and back performed; Skin intact, warm, with no rash MSK: Joints without erythema or edema; No gross limitation in range of motion Ext: No clubbing or cyanosis Neuro: Awake and alert Psych: Normal mood and affect Labs/Imaging: All microbiology testing (culture and non-culture) reviewed in the medical record. Personally reviewed and interpreted the images of the following radiographs: CT abdomen pelvis from 11/13 showing no evidence for transmural colonic wall thickening or edema. Medications Generic Name Dose Route Start Last Admin Trade Name Freq PRN Reason Stop Dose Admin Ceftriaxone Sodium/Dextrose 50 mls @ 100 mls/hr 11/15/18 09:00 11/15/18 12:24 Rocephin 1 Gm (Premix) IV 12/15/18 08:59 50 mls DAILY [facility] Protocol Rifaximin 200 mg 11/15/18 09:00 11/15/18 09:06 Xifaxan PO 11/18/18 08:59 200 mg TID [facility] Protocol Microbiology 11/13/18 21:15 Stool Gastrointestinal Tract Panel (PCR) - Final E.coli Enteroaggregative(Eaec) 11/14/18 14:30 Urine,Clean Catch Urine Culture - Preliminary Laboratory Tests 11/13/18 11/14/18 11/14/18 06:25 04:58 04:58 WBC 12.23 H 9.23 Hgb 10.4 L 10.0 L Plt Count 160 156 Absolute Seg Neuts 5.50 5.08 Absolute Monocytes 5.01 H 2.95 H Creatinine 0.7 AST 38 ALT 27 Total Protein 5.5 L Albumin 2.9 L Urine Protein Urine Blood Ur Leukocyte Esterase Urine RBC Urine WBC 11/14/18 14:30 WBC Hgb Plt Count Absolute Seg Neuts Absolute Monocytes Creatinine AST ALT Total Protein Albumin Urine Protein 1+ H Urine Blood 2+ H Ur Leukocyte Esterase 2+ H Urine RBC 10-15 H Urine WBC 50-182 H Ongoing monitoring for antimicrobial toxicity with: CBC, BMP.
--- NOTE | 2018-11-15 15:00 | HOSPPROG ---
Hospitalist Progress Note Assessment/Plan: #E coli (Eaec) GI infection: supportive care. #UTI: culture pending, Ceftriaxone. Rifaximin added to prevent C diff given chronic immunosuppression #Weakness: uses furniture at home to ambulate; PT/OT evaluation #Leukocytosis: resolved #Chronic immunosuppression: with prednisone. Add Ca/Vit D #Suspect depression: per family, has no motivation to get off couch. She feels isolated bc hearing poor. Doesn't enjoy foods -asked her to consider SSRI #Weakness: SNF recommended #Diet: ADAT #Disp: inpatient admission for IVFs, PT Daughter bedside and questions answered Subjective: appetite better. Ate toast, egg this morning. Objective: Vital Signs Temp Pulse Resp BP Pulse Ox 36.4 C 110 H 18 139/64 H 96 11/15/18 08:00 11/15/18 11:23 11/15/18 11:23 11/15/18 11:23 11/15/18 11:23 Laboratory Results 11/14/18 04:58 11/14/18 04:58 11/14/18 11/15/18 11/16/18 05:59 05:59 05:59 Intake Total 500 300 Balance 500 300 - Time Spent With Patient Time Spent with Patient: greater than 35 minutes Time Spent with Patient: Greater than 35 minutes spent on this patients care, greater than 50% of time spent counseling, educating, and coordinating care regarding the above mentioned plan. - Physical Exam Constitutional: other (appears brighter today) Eyes: PERRL Ears, Nose, Mouth, Throat: moist mucous membranes Cardiovascular: regular rate and rhythym Respiratory: no respiratory distress Gastrointestinal: normoactive bowel sounds, soft, non-tender abdomen Genitourinary: no bladder fullness, No knutson in urethra Skin: warm Musculoskeletal: full muscle strength Neurologic: CN II-XII Intact Psychiatric: flat affect ICD10 Worksheet Patient Problems: Problems Problem Status Onset Abdominal pain Acute Diarrhea Acute Weakness Acute Acute delirium Acute Adrenal suppression Acute C. difficile colitis Acute C. difficile diarrhea Acute 12/30/14 DVT prophylaxis Acute Dizziness Acute Fever Acute Left ankle pain Acute Lethargy Acute Macrocytosis Acute Sepsis Acute Systolic murmur Acute Tachycardia Acute Temporal arteritis Acute Tongue ulceration Acute UTI (urinary tract infection) Acute
[2018-11-15] MEDS: TEARS/DEXTRAN 70/HYPROMELLOSE 15 ML OPHT.BTL EACHEYE PRN (21:18)
[2018-11-15] MEDS: LATANOPROST 0.005% 2.5 ML OPHT DROPS EACHEYE SCH (21:19)
[2018-11-15] MEDS ORDERED: diphenhydrAMINE 25 MG CAP PO PRN (23:46)
[2018-11-16] MEDS: NS 1,000 ML IV SCH (02:45)
[2018-11-16] MEDS: RIFAXIMIN 200 MG TAB PO SCH ×3 (08:34→21:47)
[2018-11-16] MEDS: CARVEDILOL 3.125 MG TAB PO SCH ×2 (08:34→17:22)
[2018-11-16] MEDS: CALCIUM CARB W/VIT D 500 MG TAB PO SCH ×2 (08:34→21:47)
[2018-11-16] MEDS: ENOXAPARIN 40 MG/0.4 ML SYR SC SCH (08:34)
[2018-11-16] MEDS: predniSONE 10 MG TAB PO SCH (08:35)
[2018-11-16] MEDS: ASPIRIN 325 MG TAB PO SCH (08:38)
[2018-11-16] MEDS: INSULIN LISPRO 100 UNIT/ML SC SCH ×3 (08:40→18:26)
[2018-11-16] MEDS: TEARS/DEXTRAN 70/HYPROMELLOSE 15 ML OPHT.BTL EACHEYE PRN ×2 (08:41→21:46)
[2018-11-16] MEDS: DORZOLAMIDE/TIMOLOL 10 ML OPHT.BTL EACHEYE SCH ×2 (08:46→21:52)
--- NOTE | 2018-11-16 12:21 | PCMIDPN ---
Assessment/Plan: Assessment: Diarrhea an 88-year-old female-mostly resolved. Patient had 1 episode yesterday and none so far today. She was placed empirically on rifaximin 200 mg 3 times a day. Also being covered with ceftriaxone due to unexplained pyuria with possible diagnosis of urinary tract infection. Patient is feeling moderately improved overall. Unclear as to what the etiology of her presentation specifically is. The multiple positive results from the multiplex PCR test clearly are not all responsible for her presentation and it is unknown whether any of them are responsible. Plan to continue the treatment course as outlined yesterday and follow for clinical response. Urine culture is not growing anything as of yet. Plan: 1. Continue both ceftriaxone and rifaximin. 2. Follow in diarrhea symptoms. 3. Follow up on urine cultures. 11/16/18 14:01 Subjective: Patient is resting in her hospital bed. She reports no new complaints. States that she is feeling somewhat better. Denies any diarrhea so far today and only had 1 event yesterday per the patient. No abdominal pain. No fevers. Objective: Ceftriaxone # 3 Rifaximin # 2 Vital Signs Temp Pulse Resp BP Pulse Ox 36.5 C 98 16 145/72 H 92 11/16/18 12:00 11/16/18 12:00 11/16/18 12:00 11/16/18 12:00 11/16/18 12:00 Laboratory Results 11/14/18 04:58 11/14/18 04:58 11/15/18 11/16/18 11/17/18 05:59 05:59 05:59 Intake Total 300 1300 Balance 300 1300 - Physical Exam General Appearance: WD/WN, alert, no apparent distress, non-toxic Respiratory: lungs clear, normal breath sounds, No respiratory distress Cardiac/Chest: regular rate, rhythm, No tachycardia Abdomen: non-tender, soft Skin: normal color, warm/dry, No rash Neuro/Psych: alert, normal mood/affect, oriented x 3 ICD10 Worksheet Patient Problems: Problems Problem Status Onset Abdominal pain Acute Diarrhea Acute Weakness Acute Acute delirium Acute Adrenal suppression Acute C. difficile colitis Acute C. difficile diarrhea Acute 12/30/14 DVT prophylaxis Acute Dizziness Acute Fever Acute Left ankle pain Acute Lethargy Acute Macrocytosis Acute Sepsis Acute Systolic murmur Acute Tachycardia Acute Temporal arteritis Acute Tongue ulceration Acute UTI (urinary tract infection) Acute
--- NOTE | 2018-11-16 14:09 | HOSPPROG ---
Hospitalist Progress Note Assessment/Plan: #E coli (Eaec) GI infection: supportive care. #UTI: culture NGTD. Day 2/3 CTX with rifaximin #Weakness: uses furniture at home to ambulate; agreeable to SNF #Leukocytosis: resolved #Chronic immunosuppression: with prednisone. Add Ca/Vit D #Suspect depression: per family, has no motivation to get off couch. She feels isolated bc hearing poor. Doesn't enjoy foods -asked her to consider SSRI #Weakness: SNF recommended #Diet: ADAT #Disp: inpatient admission for IVFs, PT Subjective: eating more today. No diarrhea today Objective: Vital Signs Temp Pulse Resp BP Pulse Ox 36.5 C 98 16 145/72 H 92 11/16/18 12:00 11/16/18 12:00 11/16/18 12:00 11/16/18 12:00 11/16/18 12:00 Laboratory Results 11/14/18 04:58 11/14/18 04:58 11/15/18 11/16/18 11/17/18 05:59 05:59 05:59 Intake Total 300 1300 Balance 300 1300 - Time Spent With Patient Time Spent with Patient: greater than 35 minutes Time Spent with Patient: Greater than 35 minutes spent on this patients care, greater than 50% of time spent counseling, educating, and coordinating care regarding the above mentioned plan. - Physical Exam Constitutional: other (appears brighter) Eyes: PERRL Ears, Nose, Mouth, Throat: moist mucous membranes Cardiovascular: regular rate and rhythym Respiratory: no respiratory distress Gastrointestinal: normoactive bowel sounds, tenderness Genitourinary: No no bladder tenderness, No knutson in urethra Musculoskeletal: full muscle strength Neurologic: AAOx3, CN II-XII Intact ICD10 Worksheet Patient Problems: Problems Problem Status Onset Abdominal pain Acute Diarrhea Acute Weakness Acute Acute delirium Acute Adrenal suppression Acute C. difficile colitis Acute C. difficile diarrhea Acute 12/30/14 DVT prophylaxis Acute Dizziness Acute Fever Acute Left ankle pain Acute Lethargy Acute Macrocytosis Acute Sepsis Acute Systolic murmur Acute Tachycardia Acute Temporal arteritis Acute Tongue ulceration Acute UTI (urinary tract infection) Acute
--- NOTE | 2018-11-16 15:42 | ASMTCMCOM ---
CM Note CM Note Notes: Plan of care reviewed with MD. Patient is to go to SNF rehab prior to dc to home. Referrals via allscripts. Per patient she has stayed at [facility] in the past. Spoke with daughter Selene who also wishes to elect [facility] as facility of choice. CM to follow. Plan: To SNF rehab Date Signed: 11/16/2018 03:41 PM Electronically Signed By:Mechelle Garnett RN
[2018-11-16] MEDS: hydrALAZINE 10 MG TAB PO PRN (17:24)
[2018-11-16] MEDS: LATANOPROST 0.005% 2.5 ML OPHT DROPS EACHEYE SCH (21:52)
[2018-11-17] MEDS: hydrALAZINE 10 MG TAB PO PRN (04:22)
[2018-11-17] MEDS: CARVEDILOL 3.125 MG TAB PO SCH ×2 (06:46→18:15)
[2018-11-17] MEDS ORDERED: CARVEDILOL 3.125 MG TAB PO ONE (07:00)
[2018-11-17] MEDS ORDERED: amLODIPine BESYLATE 5 MG TAB PO SCH (09:00)
[2018-11-17] MEDS: ENOXAPARIN 40 MG/0.4 ML SYR SC SCH (09:23)
[2018-11-17] MEDS: ASPIRIN 325 MG TAB PO SCH (09:23)
[2018-11-17] MEDS: RIFAXIMIN 200 MG TAB PO SCH (09:23)
[2018-11-17] MEDS: CALCIUM CARB W/VIT D 500 MG TAB PO SCH ×2 (09:23→21:37)
[2018-11-17] MEDS: DORZOLAMIDE/TIMOLOL 10 ML OPHT.BTL EACHEYE SCH ×2 (09:24→21:37)
[2018-11-17] MEDS: INSULIN LISPRO 100 UNIT/ML SC SCH ×3 (09:24→18:16)
[2018-11-17] MEDS: predniSONE 10 MG TAB PO SCH (09:24)
[2018-11-17] MEDS ORDERED: amLODIPine BESYLATE 5 MG TAB PO ONE (13:24)
--- NOTE | 2018-11-17 13:43 | HOSPPROG ---
Hospitalist Progress Note Assessment/Plan: #E coli (Eaec) GI infection: supportive care. #UTI: completed 3 days abx #Uncontrolled HTN: add Norvasc #Dyspnea: CXR pending. Diastolic function o echo 2014 #Weakness: improving; SNF at [place] #Leukocytosis: resolved #Chronic immunosuppression: with prednisone. Add Ca/Vit D #Suspect depression: per family, has no motivation to get off couch. She feels isolated bc hearing poor. Doesn't enjoy foods -asked her to consider SSRI #Diet: ADAT #Disp: inpatient admission for IVFs, PT Daughter bedside and questions answered Subjective: No MORGAN, chest pain Objective: Vital Signs Temp Pulse Resp BP Pulse Ox 36.5 C 88 18 180/77 H 90 L 11/17/18 11:55 11/17/18 11:55 11/17/18 11:55 11/17/18 11:55 11/17/18 11:55 Microbiology 11/14/18 14:30 Urine Culture - Final Urine,Clean Catch Laboratory Results 11/14/18 04:58 11/14/18 04:58 11/16/18 11/17/18 11/18/18 05:59 05:59 05:59 Intake Total 1300 750 Balance 1300 750 - Time Spent With Patient Time Spent with Patient: greater than 35 minutes Time Spent with Patient: Greater than 35 minutes spent on this patients care, greater than 50% of time spent counseling, educating, and coordinating care regarding the above mentioned plan. - Physical Exam Constitutional: no apparent distress Eyes: PERRL Ears, Nose, Mouth, Throat: moist mucous membranes Cardiovascular: regular rate and rhythym, No edema Respiratory: other (decreased BS right mid-lung to base), No inspiratory crackles Gastrointestinal: normoactive bowel sounds Genitourinary: no bladder fullness Skin: warm Musculoskeletal: full muscle strength Neurologic: AAOx3, CN II-XII Intact Psychiatric: interacting appropriately ICD10 Worksheet Patient Problems: Problems Problem Status Onset Abdominal pain Acute Diarrhea Acute Weakness Acute Acute delirium Acute Adrenal suppression Acute C. difficile colitis Acute C. difficile diarrhea Acute 12/30/14 DVT prophylaxis Acute Dizziness Acute Fever Acute Left ankle pain Acute Lethargy Acute Macrocytosis Acute Sepsis Acute Systolic murmur Acute Tachycardia Acute Temporal arteritis Acute Tongue ulceration Acute UTI (urinary tract infection) Acute
--- NOTE | 2018-11-17 13:45 | PCMIDPN ---
Assessment/Plan: Assessment/Plan: * Diarrhea: Clinically improved with time and rifaximin. Stool PCR panel positive for enteroaggregative E coli which may be potential etiology in this setting. Completing 3 days rifaximin. * Pyuria: Urine culture negative and no symptoms of UTI currently. Has received 5 days of antibiotic therapy. Will discontinue ceftriaxone. Will sign off. Please call for questions or for recurrent symptomatology. 11/17/18 13:42 Subjective: Patient feels improved overall. 2 soft stools earlier today. Appetite improved but still remains depressed. No abdominal pain. No dysuria. Objective: Vital Signs Temp Pulse Resp BP Pulse Ox 36.5 C 88 18 180/77 H 90 L 11/17/18 11:55 11/17/18 11:55 11/17/18 11:55 11/17/18 11:55 11/17/18 11:55 Microbiology 11/14/18 14:30 Urine Culture - Final Urine,Clean Catch Laboratory Results 11/14/18 04:58 11/14/18 04:58 11/16/18 11/17/18 11/18/18 05:59 05:59 05:59 Intake Total 1300 750 Balance 1300 750 Rifaximin # 3 Ceftriaxone # 5 Urine culture no growth GI pathogen panel positive for enteroaggregative E coli - Physical Exam General Appearance: alert, no apparent distress EENT: No scleral icterus, No dry mucous membranes Respiratory: lungs clear, No respiratory distress Cardiac/Chest: regular rate, rhythm, systolic murmur (2/6 blowing throughout) Abdomen: non-tender, No distended Neuro/Psych: No confused ICD10 Worksheet Patient Problems: Problems Problem Status Onset Abdominal pain Acute Diarrhea Acute Weakness Acute Acute delirium Acute Adrenal suppression Acute C. difficile colitis Acute C. difficile diarrhea Acute 12/30/14 DVT prophylaxis Acute Dizziness Acute Fever Acute Left ankle pain Acute Lethargy Acute Macrocytosis Acute Sepsis Acute Systolic murmur Acute Tachycardia Acute Temporal arteritis Acute Tongue ulceration Acute UTI (urinary tract infection) Acute
[2018-11-17] MEDS ORDERED: hydrALAZINE 20 MG/ML VIAL IVP PRN (15:46)
[2018-11-17] MEDS ORDERED: POTASSIUM CL 20 MEQ TAB PO ONE (17:48)
[2018-11-17] MEDS ORDERED: CARVEDILOL 3.125 MG TAB PO SCH (18:00)
[2018-11-17] MEDS: LATANOPROST 0.005% 2.5 ML OPHT DROPS EACHEYE SCH (21:37)
[2018-11-18] MEDS: INSULIN LISPRO 100 UNIT/ML SC SCH ×3 (09:03→18:07)
[2018-11-18] MEDS: amLODIPine BESYLATE 5 MG TAB PO SCH (09:08)
[2018-11-18] MEDS: CARVEDILOL 3.125 MG TAB PO SCH ×2 (09:08→18:07)
[2018-11-18] MEDS: predniSONE 10 MG TAB PO SCH (09:08)
[2018-11-18] MEDS: CALCIUM CARB W/VIT D 500 MG TAB PO SCH ×2 (09:08→22:10)
[2018-11-18] MEDS: ASPIRIN 325 MG TAB PO SCH (09:08)
[2018-11-18] MEDS: DORZOLAMIDE/TIMOLOL 10 ML OPHT.BTL EACHEYE SCH ×2 (09:10→22:16)
--- NOTE | 2018-11-18 15:04 | ASMTCMCOM ---
CM Note CM Note Notes: 11/18/2018 Case Management Note Attempted to meet with pt today, pt requested case management call daughter Marcy for discharge plan. Confirmed with Marcy that [facility] is acceptable. Case Management d/c poc: [facility] SNF rehab when medically stable. Case Management to follow. Date Signed: 11/18/2018 03:04 PM Electronically Signed By:Gina Palomares RN
--- NOTE | 2018-11-18 15:37 | ASMTCMCOM ---
CM Note CM Note Notes: 11/18/2018 Case Management Note At pt daughter Marcy mendez contacted Kat from [facility]. [facility] Case Management d/c poc: [facility] Case Management to follow. Date Signed: 11/18/2018 03:37 PM Electronically Signed By:Gina Palomares RN
--- NOTE | 2018-11-18 16:35 | HOSPPROG ---
Hospitalist Progress Note Assessment/Plan: #E coli (Eaec) GI infection: supportive care. #UTI: completed 3 days abx #Uncontrolled HTN: added Norvasc. Now ok #Dyspnea: -small amount of volume overload on CXR. Appears improving today w/o diuresis. Will monitor overnight. If still symptomatic, then small amount of Lasix x 1. #Weakness: improving; SNF at [place] #Leukocytosis: resolved #Chronic immunosuppression: with prednisone. Add Ca/Vit D #Suspect depression: per family, has no motivation to get off couch. She feels isolated bc hearing poor. Doesn't enjoy foods -asked her to consider SSRI #Diet: ADAT #Disp: inpatient admission for IVFs, PT Had dizzy episode today. monitor tonight. may need diuresis. monitor BP. will likely d/c tomorrow Subjective: no cp or sob. no n/v. mild hypoxemia noted. Had acute dizzy episode this morning with PT Objective: Vital Signs Temp Pulse Resp BP Pulse Ox 36.6 C 96 18 140/81 H 91 L 11/18/18 16:00 11/18/18 16:00 11/18/18 16:00 11/18/18 16:00 11/18/18 16:00 Laboratory Results 11/14/18 04:58 11/18/18 05:05 11/17/18 11/18/18 11/19/18 05:59 05:59 05:59 Intake Total 750 1700 Balance 750 1700 - Physical Exam Constitutional: chronically ill appearing Eyes: PERRL, EOMI Ears, Nose, Mouth, Throat: moist mucous membranes Cardiovascular: regular rate and rhythym, No edema Respiratory: no respiratory distress, no rales or rhonchi Gastrointestinal: normoactive bowel sounds, soft, non-tender abdomen Skin: warm Neurologic: AAOx3 Psychiatric: interacting appropriately, not anxious, not encephalopathic Lymph, Heme, Immunologic: No petechiae ICD10 Worksheet Patient Problems: Problems Problem Status Onset Abdominal pain Acute Diarrhea Acute Weakness Acute Acute delirium Acute Adrenal suppression Acute C. difficile colitis Acute C. difficile diarrhea Acute 12/30/14 DVT prophylaxis Acute Dizziness Acute Fever Acute Left ankle pain Acute Lethargy Acute Macrocytosis Acute Sepsis Acute Systolic murmur Acute Tachycardia Acute Temporal arteritis Acute Tongue ulceration Acute UTI (urinary tract infection) Acute
--- NOTE | 2018-11-18 16:58 | ECHO ---
[email or web address] [address] [address] Main: [phone] Fax: Transthoracic Echocardiogram Name: CALEB CALDERON MR#: [id number] Study Date: 11/18/2018 Study Time: 08:09 AM Date of : 1930 Age: 88 year(s) Height: 165.1 cm (65 in.) Weight: 72.12 kg (159 lb.) BSA: 1.79 m2 Gender: Female Examination: Echo Indication: Cardiac: dyspnea, elevated B, P, eval for VHD, HF Image Quality: Technically Difficult Contrast: Requested by: Susana Stahl BP: 160 mmHg/90 mmHg Heart Rate: Rhythm: Indication: Cardiac: dyspnea, elevated B, P, eval for VHD, HF Procedure Staff Dope Worker: Nicci Banuelos [facility] [place] Reading Physician: Cj Farnsworth MD Requesting Provider: Conclusions: Normal size left ventricle. Borderline concentric LV hypertrophy. Normal global systolic LV function. EF is 54 %. No regional wall motion abnormality. Grade 1 diastolic dysfunction (abnormal relaxation). Elevated left ventricular filling pressures.. Normal RV function. The left atrium is normal in size. The right atrium is normal in size. There is a moderate size focal calcified mass on the tip of the anterior leaflet, (noted on last echo 12-30-14). Mean gradient across the valve 4mmHg. Mean mitral valve gradient 4mmHg. Mild mitral valve stenosis is present. Mild aortic valve regurgitation is present. Mild calcific aortic valve stenosis. Pulmonary artery pressure is not obtained due to inadequate TR jet. Normal size and course of the IVC. Trivial anterior pericardial effusion. Measurements: Chambers Valvular Assessment AV/MV Valvular Assessment TV/PV Normal Normal Normal Name Value Range Name Value Range Name Value Range Ao Ling (MM): 3.3 cm (2.2 cm-3.7 AV Vmax: 2.09 m/s (1 m/s-1.7 PV Vmax: 0.75 m/s (0.6 m/s-0.9 cm) m/s) m/s) IVSd (2D): 1.0 cm (0.6 cm-1.1 AV maxP mmHg ( - ) PV PGmax: 2 mmHg ( - ) cm) AV meanP mmHg ( - ) LVDd (2D): 4.1 cm (3.9 cm-5.3 LVOT Vmax: 0.80 m/s (0.7 m/s-1.1 cm) m/s) Patient: CALEB CALDERON Study Date: 11/18/2018 Page 1 3 08:09 AM LVDs (2D): 3.0 cm (2.1 cm-4 KAYLEE (Vmax): 1.3 cm2 ( - ) cm) KAYLEE (VTI): 1.4 cm ( - ) LVPWd (2D): 1.0 cm ( - ) MV E Vmax: 1.09 m/s ( - ) LVOTd 2.1 cm 2.1 cm mm MV A Vmax: 1.59 m/s ( - ) LVEF (BP): 54 % (>=55 %) MV E/A: 0.69 ( - ) RVDd(2D): 1.9 cm (1.9 cm-3.8 MV meanP mmHg ( - ) cmmm) MV PHT: 0.061 s ( - ) MVA (Vmax): 2.2 m/s ( - ) MVA (PHT): 3.6 s ( - ) Continued Measurements: Chambers Valvular Assessment AV/MV Name Value Name Value LADs: 3.1 cm MV DecTime: 211 m/s LADs Lon.0 cm MV E' Septal: 0.05 m/s LA Area: 18.0 cm2 MV E/E' Septal: 23.30 LA Volume: 48 ml MV E/E' Lateral: 27.90 LA Volume Index: 26.8 ml/m2 MV VTI: 28.20 cm TAPSE: 2.4 cm RA Area: 11.5 cm2 Additional Vessels Name Value Ao Ascendin.4 cm Findings: Left Ventricle: Normal size left ventricle. Borderline concentric LV hypertrophy. Normal global systolic LV function. EF is 54 %. No regional wall motion abnormality. Grade 1 diastolic dysfunction (abnormal relaxation). Elevated left ventricular filling pressures.. Right Ventricle: Normal size right ventricle. Normal RV function. Left Atrium: The left atrium is normal in size. Right Atrium: The right atrium is normal in size. Mitral Valve: There is mild thickening of the mitral valve leaflets. There is a moderate size focal calcified mass on the tip of the anterior leaflet, (noted on last echo 12-30-14). Mean gradient across the valve 4mmHg. Mild mitral valve regurgitation is present.Mean mitral valve gradient 4mmHg. Mild mitral valve stenosis is present. Aortic Valve: The aortic valve is tri-leaflet. There is mild thickening of the aortic cusps. Moderate aortic cusp calcification is present. Mild aortic valve regurgitation is present. Mild calcific aortic valve stenosis. Tricuspid Valve: The tricuspid valve is normal in appearance and function. Trivial tricuspid valve regurgitation. Pulmonary artery pressure is not obtained due to inadequate TR jet. Pulmonic Valve: Pulmonary valve not well visualized. Trivial pulmonic valve regurgitation. Aorta: Normal size aortic root measuring 3.3 cm. Normal size ascending aorta measuring 3.4 cm. IVC: Normal size and course of the IVC. Pericardium: Trivial anterior pericardial effusion. No echocardiographic evidence of hemodynamic compromise. There is pericardial fat. Patient: CALEB CALDERON Study Date: 11/18/2018 Page 2 of 3 08:09 AM (No Signature Object) Patient: CALEB CALDERON Study Date: 11/18/2018 Page 3 of 3 08:09 AM [id number]
[2018-11-18] MEDS: TEARS/DEXTRAN 70/HYPROMELLOSE 15 ML OPHT.BTL EACHEYE PRN (22:10)
[2018-11-18] MEDS: LATANOPROST 0.005% 2.5 ML OPHT DROPS EACHEYE SCH (22:17)
[2018-11-19] MEDS: CARVEDILOL 3.125 MG TAB PO SCH (08:36)
[2018-11-19] MEDS: amLODIPine BESYLATE 5 MG TAB PO SCH (08:36)
[2018-11-19] MEDS: INSULIN LISPRO 100 UNIT/ML SC SCH ×2 (08:37→12:14)
[2018-11-19] MEDS: DORZOLAMIDE/TIMOLOL 10 ML OPHT.BTL EACHEYE SCH (08:37)
[2018-11-19] MEDS: predniSONE 10 MG TAB PO SCH (08:37)
[2018-11-19] MEDS: CALCIUM CARB W/VIT D 500 MG TAB PO SCH (08:37)
[2018-11-19] MEDS: ASPIRIN 325 MG TAB PO SCH (08:37)
[2018-11-19 12:11] VITALS: BP 128/76
--- NOTE | 2018-11-19 13:16 | PDIAF ---
- Diagnosis Diagnosis: weakness Code Status: Full Code - Medication Management Discharge Medications: electronically signed and located in the Home Medication List. - Orders Isolation Type: Contact Isolation Diet Recommendation: no restrictions on diet Diet Texture: Regular Texture Diet Additional Instructions: activity: as tolerated F/U: with PCP in one week - Follow Up Care Current Providers and Referrals: Rebeca Washington MD [Primary Care Provider] - As per Instructions
--- NOTE | 2018-11-19 13:20 | PDDCSUM ---
Discharge Summary Discharge Summary: HPI/HOSPITAL COURSE: This is 88 yo female who was admitted with diarrhea, dehydration, and generalized weakness. She was found to have a EAEC GI infection. She was hydrated. She was also found to have a UTI. She cont to have some weakness and is being d/c to SNF. Of note she was reported to be on large amounts of long acting insulin at home. Unclear compliance. She has not required long acting insulin here and has been treated with an ISS. Please see below for details per problem list: DDX: #E coli (Eaec) GI infection with diarrhea: supportive care. No further diarrhea #UTI: completed 3 days abx #Uncontrolled HTN: added Norvasc. #Dyspnea: -small amount of volume overload on CXR but did not required diuretics. She is back to RA on d/c. #Weakness: improving; SNF at ID #Leukocytosis: resolved #Chronic immunosuppression: with prednisone. Add Ca/Vit D #Suspect depression: per family, has no motivation to get off couch. She feels isolated bc hearing poor. Doesn't enjoy foods -asked her to consider SSRI. this will need op follow up #IDDM: unclear compliance per above. Lantus has been held. Need to avoid hypoglycemia. f/u with PCP #Diet: Regular Exam: NAD AAOX3 RRR CTA B S/NT/ND MEDS: SEE MED REC TOTAL TIME SPENT ON D/C IS 35 MINS. D/W CM
--- NOTE | 2018-11-19 13:38 | ASMTLACE ---
LACE Length of stay for Answers: 4-6 days current admission Acuity / Level of Answers: Yes Care: Did the patient have an inpatient admission? Comorbidities - select Answers: Any tumor (including all that apply lymphoma or leukemia) Cerebrovascular disease (CVA, TIA, aneurysms, vasc ular dementia) Diabetes (uncontrolled or controlled) Other Notes: htn # of Emergency department Answers: 1-2 visits in the last 6 months Score: 13 Date Signed: 11/19/2018 01:37 PM Electronically Signed By:Gina Palomares RN
--- NOTE | 2018-11-19 13:43 | ASMTDCNOTE ---
Case Management Discharge Discharge Order Complete? Answers: Yes Patient to Obtain Answers: Other Notes: [facility] Medications Transportation Arranged Answers: Other Notes: w/c with O2 arranged by Kat at [facility] Transport will Pick (Date 11/19/2018 02:30 PM & Time) Faxed Final Orders Answers: Yes Notes: to [facility] Agency/Facility Transfer Answers: Yes Notes: to [facility] Report Printed & Faxed to Receiving Agency Discharge Comments Notes: 11/19/2018 Case Management Note Faxed final orders to [facility]. Jennifer arranged transportation. Notified RN of merchandise pickup/receiving associate time. RN to call report. Case Management d/c poc: [facility] Date Signed: 11/19/2018 01:42 PM Electronically Signed By:Gina Palomares RN
--- NOTE | 2018-11-19 13:44 | ASDISCHSUM ---
Discharge Information Plan Status:SNF Medically Cleared to Leave:11/18/2018 Discharge Date:11/18/2018 CM D/C Disposition:Custodial Facility ADT D/C Disposition:Custodial Facility Projected Discharge Date:11/17/2018 11:00 AM Transportation at D/C:Wheelchair Van Discharge Delay Reason: Follow-Up Date:11/17/2018 11:00 AM Discharge Slot: Final Diagnosis: Placement Information Referral Type:*Jail/SNF Referral ID:[id number] Provider Name:[facility] Address 1:[address] Address 2: City:[place] Selection Factors: State:[place] Patient Contact Information Contact Name:ESTEFANIA Relationship:Daughter Address:[address] City:[place] Alternate Phone: State/Zip Code:[place] [address] Email: Financial Information Financial Class:Medicare Primary Plan Desc:MEDICARE INPATIENT Primary Plan Number:[id number] Secondary Plan Desc: OUT OF [facility] Secondary Plan Number:[id number] Assessment Information BC CM Progress Note CM Note CM Note Notes: Pt is a 88 year old female, presents with generalized pain and weakness. Pt has history of CVA, hypertension, CML, glaucoma, diabetes, temporal arteritis and C-diff in 2014. Bowel scan today. PT recommending SNF. CM to follow. Plan: SNF Date Signed: 11/14/2018 04:11 PM Electronically Signed By:ELLA Khan LACE LACE Length of stay for Answers: 4-6 days current admission Acuity / Level of Answers: Yes Care: Did the patient have an inpatient admission? Comorbidities - select Answers: Any tumor (including all that apply lymphoma or leukemia) Cerebrovascular disease (CVA, TIA, aneurysms, vasc ular dementia) Diabetes (uncontrolled or controlled) Other Notes: htn # of Emergency department Answers: 1-2 visits in the last 6 months Score: 13 Date Signed: 11/19/2018 01:37 PM Electronically Signed By:Gina Palomares RN [facility] Progress Note CM Note CM Note Notes: Plan of care reviewed with MD. Patient is to go to SNF rehab prior to dc to home. Referrals via allscripts. Per patient she has stayed at [facility] in the past. Spoke with daughter Selene who also wishes to elect [facility] as facility of choice. CM to follow. Plan: To SNF rehab Date Signed: 11/16/2018 03:41 PM Electronically Signed By:Mechelle Garnett RN [facility] CM Progress Note CM Note CM Note Notes: 11/18/2018 Case Management Note Attempted to meet with pt today, pt requested case management call [facility] for discharge plan. Confirmed with Marcy that [facility] is acceptable. Case Management d/c poc: [facility] SNF rehab when medically stable. Case Management to follow. Date Signed: 11/18/2018 03:04 PM Electronically Signed By:Gina Palomares RN [facility] CM Progress Note CM Note CM Note Notes: 11/18/2018 Case Management Note At pt daughter Marcy mendez contacted Kat from [facility]. Kat accepted pt. [facility] is first choice. Case Management d/c poc: [facility] Case Management to follow. Date Signed: 11/18/2018 03:37 PM Electronically Signed By:Gina Palomares RN Case Management Discharge Plan Note Case Management Discharge Discharge Order Complete? Answers: Yes Patient to Obtain Answers: Other Notes: [facility] Medications Transportation Arranged Answers: Other Notes: w/c with O2 arranged by Kat at [facility] Transport will Pick (Date 11/19/2018 02:30 PM & Time) Faxed Final Orders Answers: Yes Notes: to [facility] Agency/Facility Transfer Answers: Yes Notes: to [facility] Report Printed & Faxed to Receiving Agency Discharge Comments Notes: 11/19/2018 Case Management Note Faxed final orders to [facility]. Jennifer arranged transportation. Notified RN of brick picker time. RN to call report. Case Management d/c poc: [facility] Date Signed: 11/19/2018 01:42 PM Electronically Signed By:Gina Palomares RN Intervention Information Intervention Type:*Incorrect Registration Date of Service:11/13/2018 01:47 PM Patient Type:Observation Staff Member:Yodit Vance Hours: Discipline: Severity: Comment:
== END 2018-11-19 15:08 | DRG 372 ==
LOC: OBSVTOIN 09:23 → F3E 15:53
PROVIDERS: ADMIT Internal Medicine; ATTEND Internal Medicine
DX: A04.4 Other intestinal Escherichia coli infections (principal); N39.0 Urinary tract infection, site not specified; B96.20 Unspecified Escherichia coli [E. coli] as the cause of diseases classified elsewhere; C92.10 Chronic myeloid leukemia, BCR/ABL-positive, not having achieved remission; I10 Essential (primary) hypertension; E11.9 Type 2 diabetes mellitus without complications; D53.9 Nutritional anemia, unspecified; M31.6 Other giant cell arteritis; H40.9 Unspecified glaucoma; R53.1 Weakness; R26.81 Unsteadiness on feet; E87.70 Fluid overload, unspecified; F32.9 Major depressive disorder, single episode, unspecified; Z86.73 Personal history of transient ischemic attack (TIA), and cerebral infarction without residual deficits; Z79.4 Long term (current) use of insulin; Z79.82 Long term (current) use of aspirin; Z79.52 Long term (current) use of systemic steroids
CPT/HCPCS: 82607-90; 96365; 97110-GP; 97116-GP; 97163-GP; 97165-GO; 97530-GP; 97535-GO; J0696; J1650; J1815; J7512; Q9967

== ENCOUNTER 2018-12-03 14:54 | Inpatient (IN) | payer OTHER, BC ==
--- NOTE | 2018-12-03 15:33 | EDPHY ---
H & P Time Seen by Provider: 12/03/18 15:23 HPI/ROS: CHIEF COMPLAINT: diarrhea HISTORY OF PRESENT ILLNESS: The patient is an 88-year-old female with a history of E coli GI infection and urinary tract infection who presents to the emergency department with return of her diarrhea. Patient was admitted to the hospital on 11/13/2018. She was discharged on 11/20/2018 to a nursing care facility. She was discharged from that facility 1 week later. She thought she was improving but 3-4 days ago she began to developed nonbloody diarrhea. 2-3 days ago she began to have decreased urine output. She denies abdominal pain. She states she has had a low-grade fever to 99. No nausea and vomiting. The patient is not currently using antibiotics REVIEW OF SYSTEMS: 10 systems were reveiwed and are negative with the exception of the elements mentioned in the history of present illness. Past Medical/Surgical History: Includes E coli GI infection, diarrhea, or UTI, arthritis, CVA diabetes, hypertension, temporal arteritis, CVA, glaucoma Past surgical history: Kyphoplasty x2 Social history: Patient lives at home in her apartment. Smoking Status: Former smoker Physical Exam: 37, 117/56, 79, 93% on room air GENERAL: Well-appearing, in no acute distress, alert. HEENT: Eyes normal to inspection, normal pharynx, no signs of dehydration. NECK: Normal, supple. RESPIRATORY: Clear to auscultation bilaterally, no rales, rhonchi or wheezing. CVS: Regular rate and rhythm, no rubs, murmurs, or gallops. ABDOMEN: Soft, nontender, nondistended, no organomegaly. Benign BACK: Normal to inspection, no CVA tenderness. SKIN: Normal color, no rash, warm, dry. No pallor. EXTREMITIES: No pedal edema, no calf tenderness, no Homans sign or cords, no joint swelling. NEURO/PSYCH: Alert and oriented, normal mood and affect, normal motor sensory exam. Constitutional: Initial Vital Signs Temperature (C) 37 C 12/03/18 15:02 Heart Rate 79 12/03/18 15:02 Blood Pressure 117/56 L 12/03/18 15:02 O2 Sat (%) 93 12/03/18 15:02 O2 Delivery Mode Room Air Allergies/Adverse Reactions: Iodinated Contrast- Oral and IV Dye Allergy (Unknown, Verified 11/13/18 05:15) Home Medications: Medication Instructions Recorded Aspirin [Aspirin 325 mg (*)] 325 mg PO DAILY 07/10/14 predniSONE [Prednisone] 20 mg PO DAILY 09/23/16 Multivitamins [Multivitamin (*)] 1 each PO DAILY 12/01/17 Carvedilol [Coreg (*)] 3.125 mg PO BIDMEAL 04/16/18 Dorzolamide/Timolol [Cosopt (*)] 1 drops EACHEYE BID 04/16/18 Latanoprost 0.005% [Xalatan 0.005% 1 drops EACHEYE HS 04/16/18 (*)] Cholecalciferol Vit D3 [Vitamin D3 1,000 units PO DAILY 11/13/18 (*)] Insulin Glargine,Hum.rec.anlog 44 unit SQ HS 11/13/18 [Basaglar Kwikpen U-100] Calcium Carb W/Vit D [Calcium Carb 500 mg PO BID tab 11/19/18 W/Vit D 500/200 (*)] Carvedilol [Coreg (*)] 3.125 mg PO BIDMEAL tab 11/19/18 Insulin Lispro [HumaLOG LISPRO] 0 unit SC TIDMEAL unit 11/19/18 Tears/Dextran 70/Hypromellose 1 drop EACHEYE Q2 PRN opht.btl 11/19/18 [Natural Balance Tears (*)] amLODIPine BESYLATE [Norvasc 5 mg 10 mg PO DAILY tab 11/19/18 (*)] diphenhydrAMINE [Benadryl 25 MG 25 mg PO Q6HRS PRN cap 11/19/18 (*)] Medical Decision Making ED Course/Re-evaluation: In the emergency department I discussed possible etiologies with the patient. I answered all her questions. IV was placed. Laboratory studies were obtained. Patient was given normal saline 500 mL IV for hydration. Differential Diagnosis: My differential includes but is not limited to infectious diarrhea, urinary tract infection, dehydration, electrolyte abnormality, sugar abnormality, bacteremia, sepsis Departure - Departure Disposition: [facility] Inpatient Acute Clinical Impression: Diarrhea Qualifiers: Diarrhea type: unspecified type Qualified Code(s): R19.7 - Diarrhea, unspecified Condition: Good Referrals: Rebeca Washington MD [Primary Care Provider] - As per Instructions
[2018-12-03] MEDS ORDERED: NS 500 ML IV ONE (15:39)
[2018-12-03 15:49] LABS: PLATELET COUNT 204 10^3/uL (150-400)
[2018-12-03] MEDS ORDERED: ONDANSETRON 4 MG/2 ML VIAL IVP PRN (18:06)
[2018-12-03] MEDS ORDERED: ACETAMINOPHEN 325 MG TAB PO PRN (18:06)
[2018-12-03] MEDS ORDERED: ONDANSETRON DISINTEGRATING 4 MG TAB PO PRN (18:06)
[2018-12-03] MEDS ORDERED: NS 1,000 ML IV SCH (18:15)
--- NOTE | 2018-12-03 18:34 | PDGENHP ---
History and Physical - Chief Complaint Diarrhea - History of Present Illness Skylar Antoine is a 88 yo F with a PMHx of recent E Coli Enterocolitis, recent UTI , T2DM, HTN, CVA who presents to [facility] for diarrhea. She was admitted to [facility] from 11/13-11/20 for E Coli Enterocolitis and UTI. She was then discharged to rehab facility then home last Friday. She reports that for the past 3 days she has had return of copious amounts of loose stools. She reports no abdominal pain, n/v, chest pain, SOB, dysuria. She does state that she has been urinating less than normal in the past 2 days since recurrence of diarrhea. She denies any hematochezia, hematemesis. History Information - Allergies/Home Medication List Allergies/Adverse Reactions: Iodinated Contrast- Oral and IV Dye Allergy (Unknown, Verified 11/13/18 05:15) Home Medications: Aspirin [Aspirin 325 mg (*)] 325 mg PO DAILY 07/10/14 [Last Taken 04/15/18] predniSONE [Prednisone] 20 mg PO DAILY 09/23/16 [Last Taken 04/15/18] Multivitamins [Multivitamin (*)] 1 each PO DAILY 12/01/17 [Last Taken 04/15/18] Carvedilol [Coreg (*)] 3.125 mg PO BIDMEAL 04/16/18 [Last Taken 04/15/18] Dorzolamide/Timolol [Cosopt (*)] 1 drops EACHEYE BID 04/16/18 [Last Taken ] Latanoprost 0.005% [Xalatan 0.005% (*)] 1 drops EACHEYE HS 04/16/18 [Last Taken 04/15/18] Cholecalciferol Vit D3 [Vitamin D3 (*)] 1,000 units PO DAILY 11/13/18 [Last Taken Unknown] Insulin Glargine,Hum.rec.anlog [Klever Martin U-100] 44 unit SQ HS 11/13/18 [ Last Taken Unknown] I have personally reviewed and updated: family history, medical history, social history, surgical history Past Medical History: temporal arteritis, htn, cva, glaucoma, iddm, diagnosed with bone cancer. - Past Medical History arthritis, CHF, CVA, diabetes type 2, hypertension Additional medical history: Temporal arteritis. Chronic leukemia, followed by Dr. Adame. Multiple compression fractures s/p kyphoplasty T6, T11. B/L vertebral artery occlusion - Surgical History Additional surgical history: kyphoplasty x2 - Family History Positive for: non-pertinent - Social History Smoking Status: Former smoker Additional social history: Lives alone in an apartment Review of Systems Review of Systems: ROS: 10pt was reviewed & negative except for what was stated in HPI & below Physical Exam Physical Exam: Temp Pulse Resp BP Pulse Ox 37 C 97 16 123/83 H 94 12/03/18 15:02 12/03/18 18:12 12/03/18 18:12 12/03/18 18:12 12/03/18 18:12 Constitutional: no apparent distress Eyes: PERRL Ears, Nose, Mouth, Throat: moist mucous membranes Cardiovascular: regular rate and rhythym Respiratory: no respiratory distress Gastrointestinal: tenderness (RLQ) Skin: warm Musculoskeletal: full muscle strength Neurologic: AAOx3 Psychiatric: interacting appropriately Lab Data & Imaging Review 12/03/18 15:19 12/03/18 15:19 WBC 16.23 10^3/uL (3.80-9.50) H 12/03/18 15:19 RBC 3.43 10^6/uL (4.18-5.33) L 12/03/18 15:19 Hgb 11.4 g/dL (12.6-16.3) L 12/03/18 15:19 Hct 36.3 % (38.0-47.0) L 12/03/18 15:19 MCV 105.8 fL (81.5-99.8) H 12/03/18 15:19 MCH 33.2 pg (27.9-34.1) 12/03/18 15:19 MCHC 31.4 g/dL (32.4-36.7) L 12/03/18 15:19 RDW 14.4 % (11.5-15.2) 12/03/18 15:19 Plt Count 204 10^3/uL (150-400) 12/03/18 15:19 MPV 11.6 fL (8.7-11.7) 12/03/18 15:19 Neut % (Auto) Not Reported 12/03/18 15:19 Lymph % (Auto) Not Reported 12/03/18 15:19 [place] % (Auto) Not Reported 12/03/18 15:19 Eos % (Auto) Not Reported 12/03/18 15:19 Baso % (Auto) Not Reported 12/03/18 15:19 Nucleat RBC Rel Count Not Reported 12/03/18 15:19 Absolute Neuts (auto) Not Reported 12/03/18 15:19 Absolute Lymphs (auto) Not Reported 12/03/18 15:19 Absolute Monos (auto) Not Reported 12/03/18 15:19 Absolute Eos (auto) Not Reported 12/03/18 15:19 Absolute Basos (auto) Not Reported 12/03/18 15:19 Absolute Nucleated RBC Not Reported 12/03/18 15:19 Immature Gran % Not Reported 12/03/18 15:19 Seg Neutrophils % 82.0 % 12/03/18 15:19 Band Neutrophils % 2.0 % 12/03/18 15:19 Lymphocytes % 8.0 % 12/03/18 15:19 Monocytes % 8.0 % 12/03/18 15:19 Eosinophils % 0.0 % 12/03/18 15:19 Basophils % 0.0 % 12/03/18 15:19 Metamyelocytes % 0.0 % 12/03/18 15:19 Myelocytes % 0.0 % 12/03/18 15:19 Promyelocytes % 0.0 % 12/03/18 15:19 Blast Cells % 0.0 % 12/03/18 15:19 Immature Gran # Not Reported 12/03/18 15:19 Absolute Seg Neuts 13.31 10^3/uL (1.70-6.50) H 12/03/18 15:19 Absolute Band Neuts 0.32 10^3/uL (0.00-0.70) 12/03/18 15:19 Absolute Lymphocytes 1.30 10^3/uL (1.00-3.00) 12/03/18 15:19 Absolute Monocytes 1.30 10^3/uL (0.30-0.80) H 12/03/18 15:19 Absolute Eosinophils 0.00 10^3/uL (0.03-0.40) L 12/03/18 15:19 Absolute Basophils 0.00 10^3/uL (0.02-0.10) L 12/03/18 15:19 Absolute Metamyelocyte 0.00 10^3/mL (0.00-0.00) 12/03/18 15:19 Absolute Myelocytes 0.00 10^3/mL (0.00-0.00) 12/03/18 15:19 Absolute Promyelocytes 0.00 10^3/uL (0.00-0.00) 12/03/18 15:19 Absolute Plasma Cells 0.00 10^3/uL (0.00-0.00) 12/03/18 15:19 Nucleated RBCs 0 /100 WBC (0-0) 12/03/18 15:19 Absolute Blast Cells 0.00 10^3/uL (0.00-0.00) 12/03/18 15: Plasma Cells % 0.0 % 12/03/18 15:19 Platelet Estimate ADEQUATE (ADEQ) 12/03/18 15:19 Oval Macrocytes 1+ H 12/03/18 15:19 Sodium 136 mEq/L (135-145) 12/03/18 15:19 Potassium 3.9 mEq/L (3.5-5.2) 12/03/18 15:19 Chloride 102 mEq/L (97-110) 12/03/18 15:19 Carbon Dioxide 22 mEq/l (22-31) 12/03/18 15:19 Anion Gap 12 mEq/L (6-14) 12/03/18 15:19 BUN 28 mg/dL (7-23) H 12/03/18 15:19 Creatinine 1.1 mg/dL (0.6-1.0) H 12/03/18 15:19 Estimated GFR 47 12/03/18 15:19 Glucose 213 mg/dL (70-100) H 12/03/18 15:19 Calcium 9.1 mg/dL (8.5-10.4) 12/03/18 15:19 Urine Color JEM 12/03/18 15:58 Urine Appearance MODERATELY TURBID 12/03/18 15:58 Urine pH 5.0 (5.0-7.5) 12/03/18 15:58 Ur Specific [place] 1.025 (1.002-1.030) 12/03/18 15:58 Urine Protein 1+ (NEGATIVE) H 12/03/18 15:58 Urine Ketones TRACE (NEGATIVE) H 12/03/18 15:58 Urine Blood NEGATIVE (NEGATIVE) 12/03/18 15:58 Urine Nitrate NEGATIVE (NEGATIVE) 12/03/18 15:58 Urine Bilirubin NEGATIVE (NEGATIVE) 12/03/18 15:58 Urine Urobilinogen NEGATIVE EU (0.2-1.0) 12/03/18 15:58 Ur Leukocyte Esterase NEGATIVE (NEGATIVE) 12/03/18 15:58 Urine RBC 5-10 /hpf (0-3) H 12/03/18 15:58 Urine WBC 1-3 /hpf (0-3) 12/03/18 15:58 Ur Epithelial Cells NONE SEEN /lpf (NONE-1+) 12/03/18 15:58 Amorphous Sediment PRESENT /hpf (NONE-1+) 12/03/18 15:58 Urine Bacteria TRACE /hpf (NONE SEEN) H 12/03/18 15:58 Hyaline Casts 25-50 /lpf (0-1) H 12/03/18 15:58 Urine Mucus 4+ /lpf (NONE-1+) H 12/03/18 15:58 Urine Glucose 1+ (NEGATIVE) H 12/03/18 15:58 Assessment & Plan Assessment: Diarrhea (Acute) - Admitted 11/13-11/20 for EAEC, had resolution of diarrhea at that time - Also reports hx of C Diff ~5 years ago - Duration 3 days, no abdominal pain, n/v associated - GI PCR, C Diff pending - S/p 500 ml IVF Bolus in ED, will continue maintenance IVF overnight @75 ml/hr Leukocytosis - In setting of diarrhea as above - Abx pending GI PCR, C Diff testing - Continue to monitor Recent UTI - Treated with 3 days of abx on recent admission - Denies dysuria, reports decreased urination - UA not significant for infection on admission - Urine culture collected T2DM - On Lantus 44 units qd at home, Lispro with meals - Will hold long acting insulin for now, SSI ordered as inpatient HTN - Continue home Amlodipine Arthritis - On chronic immunosuppression with Prednisone, will continue - Tylenol PRN for pain FEN: Diabetic Diet, mIVF overnight DVT PPx: SubQ Heparin Code: FULL Dispo: Admit to Observation
[2018-12-03] MEDS ORDERED: D50W 25 GM/50 ML SYR IVP PRN (20:20)
[2018-12-03] MEDS: HEPARIN 5,000 UNIT/0.5 ML INJ SC SCH (22:07)
[2018-12-04 05:24] LABS: PLATELET COUNT 172 10^3/uL (150-400)
[2018-12-04] MEDS: HEPARIN 5,000 UNIT/0.5 ML INJ SC SCH ×3 (05:59→20:58)
[2018-12-04] MEDS: INSULIN LISPRO 100 UNIT/ML SC SCH ×3 (08:47→17:58)
[2018-12-04] MEDS: CARVEDILOL 3.125 MG TAB PO SCH ×2 (08:54→17:59)
[2018-12-04] MEDS: ASPIRIN 325 MG TAB PO SCH (08:54)
[2018-12-04] MEDS: predniSONE 10 MG TAB PO SCH (08:54)
[2018-12-04] MEDS: VANCOMYCIN 125 MG/2.5 ML UDL PO SCH ×4 (08:55→20:58)
[2018-12-04] MEDS: DORZOLAMIDE/TIMOLOL 10 ML OPHT.BTL EACHEYE SCH ×2 (08:58→20:57)
--- NOTE | 2018-12-04 09:18 | HOSPPROG ---
Hospitalist Progress Note Assessment/Plan: #Acute C diff infection: Vanc PO QID (Day 1) #Recent E coli gastroenteritis #Temporal arteritis: pred #HTN: home meds #DM 2: glargine #Recent UTI: s/p 3 days abx #Glaucoma: home gtts #CVA: ASA #Weakness: may need SNF. PT evaluating #Diet: regular #Disp: inpatient admission for PT given increased fall-risk and subsequent harm Subjective: no abd pain. One stool this morning Objective: Vital Signs Temp Pulse Resp BP Pulse Ox 36.8 C 79 16 123/58 H 92 12/04/18 07:40 12/04/18 07:40 12/04/18 07:40 12/04/18 07:40 12/04/18 07:40 Microbiology 12/04/18 02:47 Gastrointestinal Tract Panel (PCR) - Final Stool Clostridium Difficile Detected E.coli Enteroaggregative(Eaec) Laboratory Results 12/04/18 04:30 12/04/18 04:30 12/03/18 12/04/18 12/05/18 05:59 05:59 05:59 Intake Total 650 Output Total 450 Balance 200 - Time Spent With Patient Time Spent with Patient: greater than 35 minutes Time Spent with Patient: Greater than 35 minutes spent on this patients care, greater than 50% of time spent counseling, educating, and coordinating care regarding the above mentioned plan. - Physical Exam Constitutional: no apparent distress Eyes: PERRL Ears, Nose, Mouth, Throat: moist mucous membranes Cardiovascular: regular rate and rhythym Respiratory: no respiratory distress Gastrointestinal: normoactive bowel sounds, soft, non-tender abdomen Genitourinary: no bladder fullness Skin: warm Musculoskeletal: full muscle strength Neurologic: AAOx3, CN II-XII Intact Psychiatric: interacting appropriately ICD10 Worksheet Patient Problems: Problems Problem Status Onset Diarrhea Acute Abdominal pain Acute Acute delirium Acute Adrenal suppression Acute C. difficile colitis Acute C. difficile diarrhea Acute 12/30/14 DVT prophylaxis Acute Dizziness Acute Fever Acute Left ankle pain Acute Lethargy Acute Macrocytosis Acute Sepsis Acute Systolic murmur Acute Tachycardia Acute Temporal arteritis Acute Tongue ulceration Acute UTI (urinary tract infection) Acute Weakness Acute
--- NOTE | 2018-12-04 13:55 | ASMTCMCOM ---
CM Note CM Note Notes: Pt admitted for c.difficile diarrhea and is very weak. Pt recently discharged home from [facility] and is current with [facility] (Anitra RN [phone]). PT is recommending [facility] v SNF depending on pt's ability to get stronger in the next few days. Pt prefers to discharge home and resume with [facility], however she is willing to consider [facility] if that is recommended. Referral sent to [facility] and [facility]. Pt's daughter is local and supportive. CM to follow. D/C Plan: [facility] with [facility] v SNF Date Signed: 12/04/2018 01:54 PM Electronically Signed By:Nora Castro
--- NOTE | 2018-12-04 16:59 | PDMN ---
Medical Necessity Medical necessity: Change to IP, as of 12/04/18, per MD & MCG M-170 Gastroenteritis; los >2 mn for ongoing management of acute C diff infection w/ weakness; requiring further monitoring & therapies; comorbid advanced age, recent hospitalization for E. coli gastroenteritis & UTI s/p abx
[2018-12-04] MEDS: LATANOPROST 0.005% 2.5 ML OPHT DROPS EACHEYE SCH (20:57)
[2018-12-05] MEDS: HEPARIN 5,000 UNIT/0.5 ML INJ SC SCH (05:11)
[2018-12-05] MEDS: VANCOMYCIN 125 MG/2.5 ML UDL PO SCH ×4 (05:12→20:16)
[2018-12-05] MEDS: INSULIN LISPRO 100 UNIT/ML SC SCH ×3 (07:23→17:55)
[2018-12-05] MEDS: predniSONE 10 MG TAB PO SCH (09:02)
[2018-12-05] MEDS: ASPIRIN 325 MG TAB PO SCH (09:02)
[2018-12-05] MEDS: CARVEDILOL 3.125 MG TAB PO SCH ×2 (09:03→17:55)
[2018-12-05] MEDS: DORZOLAMIDE/TIMOLOL 10 ML OPHT.BTL EACHEYE SCH ×2 (09:03→17:58)
[2018-12-05] MEDS: ENOXAPARIN 40 MG/0.4 ML SYR SC SCH (13:05)
--- NOTE | 2018-12-05 13:34 | HOSPPROG ---
Hospitalist Progress Note Assessment/Plan: #Acute C diff infection: Slightly improved today -cont Vanc PO QID (Day 2) #Recent E coli gastroenteritis #Temporal arteritis: cont prednisone #HTN: home meds #DM 2: glargine #Recent UTI: s/p 3 days abx #Glaucoma: home gtts #CVA: ASA #Weakness: PT recommends SNF #Diet: regular #Dispo: cont inpt, will go to SNF, ADD ~2 days Subjective: Pt feels a little better today. Appetite is improved. Still having loose stools, twice today so far. No abdominal pain, nausea or vomiting. No fevers. She feels weak. Objective: Vital Signs Temp Pulse Resp BP Pulse Ox 36.9 C 80 14 154/74 H 92 12/05/18 11:26 12/05/18 11:26 12/05/18 11:26 12/05/18 11:26 12/05/18 11:26 12/04/18 12/05/18 12/06/18 05:59 05:59 06:59 Intake Total 1400 Output Total 300 Balance 1100 - Physical Exam Constitutional: no apparent distress Eyes: PERRL Ears, Nose, Mouth, Throat: moist mucous membranes Cardiovascular: regular rate and rhythym Respiratory: no respiratory distress, clear to auscultation Gastrointestinal: normoactive bowel sounds, soft, non-tender abdomen Skin: warm Musculoskeletal: full muscle strength Neurologic: AAOx3 Psychiatric: interacting appropriately ICD10 Worksheet Patient Problems: Problems Problem Status Onset Diarrhea Acute Abdominal pain Acute Acute delirium Acute Adrenal suppression Acute C. difficile colitis Acute C. difficile diarrhea Acute 12/30/14 DVT prophylaxis Acute Dizziness Acute Fever Acute Left ankle pain Acute Lethargy Acute Macrocytosis Acute Sepsis Acute Systolic murmur Acute Tachycardia Acute Temporal arteritis Acute Tongue ulceration Acute UTI (urinary tract infection) Acute Weakness Acute
[2018-12-05] MEDS: LATANOPROST 0.005% 2.5 ML OPHT DROPS EACHEYE SCH (20:17)
[2018-12-06] MEDS: VANCOMYCIN 125 MG/2.5 ML UDL PO SCH ×4 (05:23→21:26)
[2018-12-06] MEDS: INSULIN LISPRO 100 UNIT/ML SC SCH ×3 (09:01→17:57)
[2018-12-06] MEDS: DORZOLAMIDE/TIMOLOL 10 ML OPHT.BTL EACHEYE SCH ×2 (09:50→18:00)
[2018-12-06] MEDS: ASPIRIN 325 MG TAB PO SCH (09:50)
[2018-12-06] MEDS: CARVEDILOL 3.125 MG TAB PO SCH ×2 (09:50→17:57)
[2018-12-06] MEDS: predniSONE 10 MG TAB PO SCH (09:50)
[2018-12-06] MEDS: ENOXAPARIN 40 MG/0.4 ML SYR SC SCH (09:50)
[2018-12-06 10:27] LABS: PLATELET COUNT 167 10^3/uL (150-400)
[2018-12-06] MEDS ORDERED: POTASSIUM CL 20 MEQ TAB PO ONE (14:00)
--- NOTE | 2018-12-06 14:15 | HOSPPROG ---
Hospitalist Progress Note Assessment/Plan: #Acute C diff infection: Improving, just traces of diarrhea, no fevers -cont Vanc PO QID (Day 3) #Recent E coli gastroenteritis #Temporal arteritis: cont prednisone #HTN: home meds #DM 2: glargine #Recent UTI: s/p 3 days abx #Glaucoma: home gtts #CVA: ASA #Weakness: PT recommends SNF #Diet: regular #Dispo: cont inpt, will go to SNF tomorrow Subjective: Pt feels better. No pain. No N/V. Has had just "traces" of diarrhea. Appetite improving. Objective: Vital Signs Temp Pulse Resp BP Pulse Ox 36.4 C 85 16 163/89 H 95 12/06/18 08:00 12/06/18 09:50 12/06/18 08:00 12/06/18 09:50 12/06/18 08:00 Laboratory Results 12/06/18 09:34 12/06/18 09:34 12/05/18 12/06/18 12/07/18 04:59 05:59 05:59 Intake Total Output Total Balance - Physical Exam Constitutional: no apparent distress Eyes: PERRL Ears, Nose, Mouth, Throat: moist mucous membranes Cardiovascular: regular rate and rhythym Respiratory: no respiratory distress, clear to auscultation Gastrointestinal: normoactive bowel sounds, soft, non-tender abdomen Skin: warm Musculoskeletal: full muscle strength Neurologic: AAOx3 Psychiatric: interacting appropriately ICD10 Worksheet Patient Problems: Problems Problem Status Onset Diarrhea Acute Abdominal pain Acute Acute delirium Acute Adrenal suppression Acute C. difficile colitis Acute C. difficile diarrhea Acute 12/30/14 DVT prophylaxis Acute Dizziness Acute Fever Acute Left ankle pain Acute Lethargy Acute Macrocytosis Acute Sepsis Acute Systolic murmur Acute Tachycardia Acute Temporal arteritis Acute Tongue ulceration Acute UTI (urinary tract infection) Acute Weakness Acute
--- NOTE | 2018-12-06 14:16 | ASMTCMCOM ---
CM Note CM Note Notes: CM spoke with RN Tiffanie, patient has been accepted to [facility] and looks to be medically stable to discharge tomorrow. Wheelchair transport ok, no O2 needs. CM to follow. D/C Plan: [facility] 3.11.19 Date Signed: 12/06/2018 02:15 PM Electronically Signed By:Gabriela Lipscomb
[2018-12-06] MEDS: LATANOPROST 0.005% 2.5 ML OPHT DROPS EACHEYE SCH ×2 (17:57→21:27)
[2018-12-07] MEDS: VANCOMYCIN 125 MG/2.5 ML UDL PO SCH ×3 (06:29→15:40)
[2018-12-07] MEDS: INSULIN LISPRO 100 UNIT/ML SC SCH ×2 (08:13→12:22)
[2018-12-07] MEDS: predniSONE 10 MG TAB PO SCH (08:39)
[2018-12-07] MEDS: ASPIRIN 325 MG TAB PO SCH (08:39)
[2018-12-07] MEDS: DORZOLAMIDE/TIMOLOL 10 ML OPHT.BTL EACHEYE SCH (08:40)
[2018-12-07] MEDS: ENOXAPARIN 40 MG/0.4 ML SYR SC SCH (08:40)
[2018-12-07] MEDS: CARVEDILOL 3.125 MG TAB PO SCH ×2 (08:40→16:13)
[2018-12-07] MEDS ORDERED: POTASSIUM CL 20 MEQ TAB PO ONE (10:15)
--- NOTE | 2018-12-07 10:41 | PDIAF ---
- Diagnosis Diagnosis: C diff Code Status: Full Code - Medication Management Discharge Medications: electronically signed and located in the Home Medication List. PICC Care - Routine: N/A - Orders Services needed: Registered Nurse, Physical Therapy, Occupational Therapy Isolation Type: CDIFF Isolation, Contact Isolation Diet Recommendation: ADA 2000 consistent carb - Follow Up Care Current Providers and Referrals: Rebeca Washington MD [Primary Care Provider] - As per Instructions
--- NOTE | 2018-12-07 10:52 | ASMTLACE ---
LACE Length of stay for Answers: 4-6 days current admission Acuity / Level of Answers: Yes Care: Did the patient have an inpatient admission? Comorbidities - select Answers: Cerebrovascular disease all that apply (CVA, TIA, aneurysms, vasc ular dementia) Diabetes (uncontrolled or controlled) Other Notes: HTN # of Emergency department Answers: 1-2 visits in the last 6 months Score: 11 Date Signed: 12/07/2018 10:51 AM Electronically Signed By:Nora Castro
--- NOTE | 2018-12-07 13:37 | ASDISCHSUM ---
Discharge Information Plan Status:SNF Medically Cleared to Leave:12/07/2018 Discharge Date:12/07/2018 CM D/C Disposition:Retirement Facility ADT D/C Disposition:Retirement Facility Projected Discharge Date:12/06/2018 11:00 AM Transportation at D/C:Wheelchair Van Discharge Delay Reason: Follow-Up Date:12/06/2018 11:00 AM Discharge Slot: Final Diagnosis:c diff Placement Information Referral Type:*Home Health Care Services Referral ID:[id number] Provider Name: Address 1: Phone Number: Address 2: Fax Number: City: Selection Factors: State: Referral Type:*Care Home/SNF Referral ID:[id number] [facility] Address 1:[address] Phone Number: Address 2: Fax Number: [facility]:[place] Selection Factors: State:[place] Patient Contact Information Contact Name:ESTEFANIA Relationship:Daughter Address:[address] City:[place] Alternate Phone: State/Zip Code:[place] [address] Email: Financial Information Financial Class:Medicare Primary Plan Desc:MEDICARE INPATIENT Primary Plan Number:[id number] Secondary Plan Desc: OUT OF [facility] Secondary Plan Number:[id number] Assessment Information LACE LACE Length of stay for Answers: 4-6 days current admission Acuity / Level of Answers: Yes Care: Did the patient have an inpatient admission? Comorbidities - select Answers: Cerebrovascular disease all that apply (CVA, TIA, aneurysms, vasc ular dementia) Diabetes (uncontrolled or controlled) Other Notes: HTN # of Emergency department Answers: 1-2 visits in the last 6 months Score: 11 Date Signed: 12/07/2018 10:51 AM Electronically Signed By:Nora Castro [facility] Progress Note CM Note CM Note Notes: Pt admitted for c.difficile diarrhea and is very weak. Pt recently discharged home from [facility] and is current with [facility] (Anitra ARVIZU [phone]). PT is recommending [facility] v SNF depending on pt's ability to get stronger in the next few days. Pt prefers to discharge home and resume with [facility], however she is willing to consider [facility] if that is recommended. Referral sent to [facility] and [facility]. Pt's daughter is local and supportive. CM to follow. D/C Plan: [facility] with [facility] v SNF Date Signed: 12/04/2018 01:54 PM Electronically Signed By:Nora Castro [facility] Progress Note CM Note CM Note Notes: CM spoke with NOLBERTO Moreno, patient has been accepted to [facility] and looks to be medically stable to discharge tomorrow. Wheelchair transport ok, no O2 needs. CM to follow. D/C Plan: [facility] 3.11.19 Date Signed: 12/06/2018 02:15 PM Electronically Signed By:Gabriela Lipscomb Case Management Discharge Plan Note Case Management Discharge Discharge Order Complete? Answers: Yes Patient to Obtain Answers: Other Notes: [facility] Transportation Arranged Answers: Other Notes: [facility] will Pick (Date 12/07/2018 04:30 PM & Time) Faxed Final Orders Answers: Yes Agency/Facility Transfer Answers: Yes Report Printed & Faxed to Receiving Agency Family Notified Answers: Yes Notes: called by CM Discharge Comments Notes: Pt to discharge today to [facility] for short term rehab. RN given number for RN to RN report. No further CM needs noted at this time. Date Signed: 12/07/2018 01:36 PM Electronically Signed By:Nora Castro Intervention Information Intervention Type:CANNON-Not Delivered Date of Service:12/04/2018 02:57 PM Patient Type:Observation Staff Member:Aleta Casanova Hours: Discipline: Severity: Comment:Attempted to meet with patient on elizabet ral occasions today. Patient is currently very weak and has been sleeping and unable to be aroused every time I have visited. Intervention Type:*IM-Signed Date of Service:12/07/2018 11:37 AM Patient Type:Inpatient Staff Member:Radha Howard Hours: Discipline: Severity: Comment:
[2018-12-07 15:58] VITALS: BP 187/99
--- NOTE | 2018-12-08 04:58 | GDS ---
[f rep st] DISCHARGE SUMMARY DISCHARGE DIAGNOSES: 1. Clostridium difficile diarrhea. 2. Temporal arteritis, on prednisone. 3. Hypertension. 4. Diabetes mellitus type 2. 5. Recent urinary tract infection, status post antibiotic course. 6. Glaucoma. 7. History of cerebrovascular accident. 8. Weakness and deconditioning. HISTORY OF DETAILS: Please see History and Physical dated December 03, 2018. In brief, the patient is a n 88-year-old female with a history of previous stroke and diabetes as well as recent E coli enteroco litis and UTI, who completed a course of antibiotics and presents to the emergency department with di gold. She was found to have C diff and was admitted to the hospital for further management. HOSPITAL COURSE: The patient admitted to the med/surg unit. She was started on oral vancomycin. He r symptoms slowly improved, and her diarrhea is mostly resolved by the day of discharge. She is disc harged with a prescription for vancomycin to complete a total of 2 weeks of therapy. Her blood sugar s remain very well controlled here. Per her H and P, she uses Lantus 44 units at home. This was hel d on arrival, given her poor intake. Instead, she was treated with sliding scale insulin. Her blood sugars in the 24 hours prior to discharge are mostly in the 100s. I have resumed Lantus at 10 units at bedtime. This may need to be up titrated as her oral intake improves. In addition, she may bene fit from adding sliding scale insulin. In addition, her blood pressure has been on the rise, and I have increased her Coreg to 6.25 mg b.i.d . at the time of discharge. She is continued on all of her home medications for her other chronic il lnesses which all remained stable. DISPOSITION: Patient is discharged to a half-way facility in stable condition for rehab, give n her weakness and deconditioning in the setting of acute illness. DISCHARGE MEDICATIONS: Please see 360pi for a completed medication list. Medications on discharg e include Tylenol 650 mg p.o. q.4 hours p.r.n., Coreg 6.25 mg p.o. b.i.d., vancomycin 125 mg p.o. anoop ry other day for 11 more days. She will continue all other outpatient medications as previously pres cribed. Note, insulin glargine dose is changed to 10 units subcutaneous at bedtime. Will likely need up titr ation as her appetite improves. /[id number]/MODL
== END 2018-12-07 16:23 | DRG 373 ==
LOC: F3E 20:00 → OBSVTOIN 12-04 15:30
PROVIDERS: ADMIT Internal Medicine; ATTEND Internal Medicine
DX: A04.72 Enterocolitis due to Clostridium difficile, not specified as recurrent (principal); M31.6 Other giant cell arteritis; I10 Essential (primary) hypertension; E11.9 Type 2 diabetes mellitus without complications; H40.9 Unspecified glaucoma; Z87.440 Personal history of urinary (tract) infections; Z86.73 Personal history of transient ischemic attack (TIA), and cerebral infarction without residual deficits
CPT/HCPCS: 97116-GP; 97161-GP; 97165-GO; 97530-GP; 97535-GO; G0378; J1644; J1650; J1815; J7512

== ENCOUNTER 2018-12-23 15:04 | Emergency (ER) | payer OTHER, BC ==
[2018-12-23] MEDS ORDERED: NS 1,000 ML IV ONE (15:19)
--- NOTE | 2018-12-23 15:19 | EDPHY ---
H & P Time Seen by Provider: 12/23/18 15:13 HPI/ROS: Chief complaint. Diarrhea HPI. 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 She was admitted initially November 13 for diarrhea diagnosis of C diff. She was admitted 12/03 again for diarrhea and weakness. She was discharged on December 07 on vancomycin orally for 2 weeks. She went to rehab. She has been off vancomycin for 6 days. She began to have loose stools to diarrhea yesterday. Multiple episodes about 5-6 times per day. No blood. She has no abdominal pain. No fever. No chest discomfort or trouble breathing. She is concerned that the C difficile has returned ROS 10 systems were reviewed and negative with the exception of the elements mentioned in the history of present illness Past Medical/Surgical History: Past medical history is significant for CVA, hypertension, diabetes, temporal arteritis, glaucoma Social History: Single, nonsmoker, no alcohol Smoking Status: Former smoker Physical Exam: General Appearance: Alert well-developed female mild distress vital signs are stable Eyes: Pupils equal and round no pallor or injection. ENT, Mouth: Mucous membranes are moist. Respiratory: There are no retractions, lungs are clear to auscultation. Cardiovascular: Regular rate and rhythm. Gastrointestinal: Abdomen is soft and nontender, no masses, bowel sounds normal. Neurological: Awake and alert, sensory and motor exams grossly normal. Skin: Warm and dry, no rashes. Musculoskeletal: Neck is supple nontender. Extremities symmetrical, full range of motion. Psychiatric: Patient is oriented X 3, there is no agitation. Constitutional: Initial Vital Signs Temperature (C) 37 C 12/23/18 15:08 Heart Rate 84 12/23/18 15:08 Respiratory Rate 16 12/23/18 15:08 Blood Pressure 112/67 12/23/18 15:08 O2 Sat (%) 93 12/23/18 15:08 O2 Delivery Mode Room Air Allergies/Adverse Reactions: Iodinated Contrast- Oral and IV Dye Allergy (Unknown, Verified 12/23/18 15:05) Itching Home Medications: Medication Instructions Recorded Aspirin [Aspirin 325 mg (*)] 325 mg PO DAILY 07/10/14 predniSONE [Prednisone] 20 mg PO DAILY 09/23/16 Multivitamins [Multivitamin (*)] 1 each PO DAILY 12/01/17 Dorzolamide/Timolol [Cosopt (*)] 1 drops EACHEYE BID 04/16/18 Latanoprost 0.005% [Xalatan 0.005% 1 drops EACHEYE HS 04/16/18 (*)] Cholecalciferol Vit D3 [Vitamin D3 1,000 units PO DAILY 11/13/18 (*)] Calcium Carb W/Vit D [Calcium Carb 500 mg PO BID tab 11/19/18 W/Vit D 500/200 (*)] Tears/Dextran 70/Hypromellose 1 drop EACHEYE Q2 PRN opht.btl 11/19/18 [Natural Balance Tears (*)] Acetaminophen [Tylenol 325mg (*)] 650 mg PO Q4HRS PRN tab 12/07/18 Carvedilol [Coreg (*)] 6.25 mg PO BIDMEAL tab 12/07/18 Insulin Glargine,Hum.rec.anlog 10 unit SQ HS #0 12/07/18 [Basaglar Kwikpen U-100] Vancomycin [Vancocin Oral Liquid] 125 mg PO QID 14 Days udl 12/23/18 Medical Decision Making Procedures: IV normal saline ED Course/Re-evaluation: Patient unable To give us a stool sample. Patient remained stable. She and I discussed laboratory evaluation, treatment plan including criteria for return importance of follow-up further evaluation. She expresses understanding and agreement. She will return with a stool sample. Differential Diagnosis: Likely this is recurrent C difficile has she has just been treated and has been off vancomycin for about 6 days with return of diarrhea. She has essentially normal white blood cell count and normal creatinine putting this in to non severe C diff category. Think outpatient treatment is appropriate. - Data Points Laboratory Results: Laboratory Results 12/23/18 15:40 12/23/18 15:40 12/23/18 12/23/18 15:40 15:40 WBC 10.92 10^3/uL H 10^3/uL (3.80-9.50) RBC 3.47 10^6/uL L 10^6/uL (4.18-5.33) Hgb 11.7 g/dL L g/dL (12.6-16.3) Hct 36.5 % L % (38.0-47.0) MCV 105.2 fL H fL (81.5-99.8) MCH 33.7 pg pg (27.9-34.1) MCHC 32.1 g/dL L g/dL (32.4-36.7) RDW 15.4 % H % (11.5-15.2) Plt Count 194 10^3/uL 10^3/uL (150-400) MPV 11.4 fL fL (8.7-11.7) Neut % (Auto) 71.8 % % (39.3-74.2) Lymph % (Auto) 12.0 % L % (15.0-45.0) [place] % (Auto) 14.8 % H % (4.5-13.0) Eos % (Auto) 0.0 % L % (0.6-7.6) Baso % (Auto) 0.1 % L % (0.3-1.7) Nucleat RBC Rel Count 0.0 % % (0.0-0.2) Absolute Neuts (auto) 7.84 10^3/uL H 10^3/uL (1.70-6.50) Absolute Lymphs (auto) 1.31 10^3/uL 10^3/uL (1.00-3.00) Absolute Monos (auto) 1.62 10^3/uL H 10^3/uL (0.30-0.80) Absolute Eos (auto) 0.00 10^3/uL L 10^3/uL (0.03-0.40) Absolute Basos (auto) 0.01 10^3/uL L 10^3/uL (0.02-0.10) Absolute Nucleated RBC 0.00 10^3/uL 10^3/uL (0-0.01) Immature Gran % 1.3 % H % (0.0-1.1) Immature Gran # 0.14 10^3/uL H 10^3/uL (0.00-0.10) RBC/WBC/PLT Morphology TNP Platelet Estimate TNP Sodium 137 mEq/L mEq/L (135-145) Potassium 4.3 mEq/L mEq/L (3.5-5.2) Chloride 104 mEq/L mEq/L (97-110) Carbon Dioxide 26 mEq/l mEq/l (22-31) Anion Gap 7 mEq/L mEq/L (6-14) BUN 17 mg/dL mg/dL (7-23) Creatinine 0.8 mg/dL mg/dL (0.6-1.0) Estimated GFR > 60 Glucose 158 mg/dL H mg/dL (70-100) Calcium 9.2 mg/dL mg/dL (8.5-10.4) Total Bilirubin 0.8 mg/dL mg/dL (0.1-1.4) Conjugated Bilirubin 0.2 mg/dL mg/dL (0.0-0.5) Unconjugated Bilirubin 0.6 mg/dL mg/dL (0.0-1.1) AST 26 IU/L IU/L (14-46) ALT 23 IU/L IU/L (9-52) Alkaline Phosphatase 72 IU/L IU/L (38-126) Total Protein 6.7 g/dL g/dL (6.3-8.2) Albumin 3.9 g/dL g/dL (3.5-5.0) Medications Given: Discontinued Medications Sodium Chloride (Ns) 1,000 mls @ 0 mls/hr IV EDNOW ONE; Wide Open PRN Reason: Protocol Stop: 12/23/18 15:20 Last Admin: 12/23/18 15:47 Dose: 1,000 mls Departure - Departure Disposition: Home, Routine, Self-Care Clinical Impression: C. difficile colitis Condition: Good Instructions: C Diff (Clostridium Difficile) Infection (ED) Additional Instructions: Drink enough fluids to stay hydrated. Gradual diet advancement Vancomycin 4 times daily for 2 weeks Return with stool sample Follow-up with Dr. Washington in the next 2-3 days Return for fever, abdominal pain, bloody diarrhea, worsening symptoms Referrals: Rebeca Washington MD [Primary Care Provider] - 2-3 days without fail Prescriptions: Vancomycin [Vancocin Oral Liquid] 125 mg PO QID 14 Days udl
[2018-12-23 15:55] LABS: PLATELET COUNT 194 10^3/uL (150-400)
[2018-12-23 16:47] VITALS: BP 153/84
== END 2018-12-23 17:22 | disposition home or self-care (01) ==
DX: A04.72 Enterocolitis due to Clostridium difficile, not specified as recurrent (principal); I10 Essential (primary) hypertension; E11.9 Type 2 diabetes mellitus without complications; E86.9 Volume depletion, unspecified; Z86.73 Personal history of transient ischemic attack (TIA), and cerebral infarction without residual deficits

== ENCOUNTER 2019-02-12 20:41 | Emergency (ER) | payer OTHER, BC ==
--- NOTE | 2019-02-12 20:49 | EDPHY ---
H & P Stated Complaint: general weakness x 3 days, decreased appetite. 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 ....previous compression fxs. Uses wheelchair when leaves apartment, otherwise uses furntiture, walker - Social History Smoking Status: Former smoker Constitutional: Initial Vital Signs Temperature (C) 36.9 C 02/12/19 20:44 Heart Rate 80 02/12/19 20:44 Respiratory Rate 18 02/12/19 20:44 Blood Pressure 97/54 L 02/12/19 20:44 O2 Sat (%) 93 02/12/19 20:44 O2 Delivery Mode Room Air Allergies/Adverse Reactions: Iodinated Contrast- Oral and IV Dye Allergy (Unknown, Verified 02/12/19 20:44) Itching Home Medications: Medication Instructions Recorded Aspirin [Aspirin 325 mg (*)] 325 mg PO DAILY 07/10/14 predniSONE [Prednisone] 20 mg PO DAILY 09/23/16 Multivitamins [Multivitamin (*)] 1 each PO DAILY 12/01/17 Dorzolamide/Timolol [Cosopt (*)] 1 drops EACHEYE BID 04/16/18 Latanoprost 0.005% [Xalatan 0.005% 1 drops EACHEYE HS 04/16/18 (*)] Cholecalciferol Vit D3 [Vitamin D3 1,000 units PO DAILY 11/13/18 (*)] Calcium Carb W/Vit D [Calcium Carb 500 mg PO BID tab 11/19/18 W/Vit D 500/200 (*)] Tears/Dextran 70/Hypromellose 1 drop EACHEYE Q2 PRN opht.btl 11/19/18 [Natural Balance Tears (*)] Acetaminophen [Tylenol 325mg (*)] 650 mg PO Q4HRS PRN tab 12/07/18 Carvedilol [Coreg (*)] 6.25 mg PO BIDMEAL tab 12/07/18 Insulin Glargine,Hum.rec.anlog 10 unit SQ HS #0 12/07/18 [Klever Matrin U-100] Vancomycin [Vancomycin (*)] 125 mg PO Q6 14 Days cap 12/23/18 Vancomycin [Vancomycin Oral Liquid] 125 mg PO QID 14 Days udl 12/23/18 Cephalexin [Keflex (RX)] 500 mg PO TID #30 cap 02/12/19 Medical Decision Making ED Course/Re-evaluation: CHIEF COMPLAINT: Weakness, loss of appetite HISTORY OF PRESENT ILLNESS: The patient is an 88 y/o female with a history of diabetes, hypertension, a CVA , and compression fractures complaining of weakness and a decreased appetite for 3 days. She also has frontal left thigh and madrid pain, but denies any injuries or trauma. The pain does not radiate to her back. Per the patient's daughter, the patient has not been taking her insulin medication for several days. Due to these symptoms she decided to present to the emergency department. No fever, headache, body aches, lightheadedness, chest pain, heart palpitations , shortness of breath, cough, abdominal pain, nausea, urinary or bowel complaints, numbness, paresthesias. REVIEW OF SYSTEMS: A comprehensive 10 system review of systems is otherwise negative aside from elements mentioned in the history of present illness and medical decision making. PHYSICAL EXAM: HR, BP, O2 Sat, RR. Temp noted General Appearance: Alert, well hydrated, appropriate, and non-toxic appearing. Head: Atraumatic without scalp tenderness or obvious injury Eyes: Pupils equal, round, reactive to light and accommodation, EOMI, no trauma , no injection. Ears: Clear bilaterally, no perforation, normal landmarks Nose: Atraumatic, no rhinorrhea, clear. Throat: There is no erythema or exudates, no lesions, normal tonsils, mucus membranes moist. Neck: Supple, 2+ carotid upstroke, nontender, no lymphadenopathy. Respiratory: No retractions, no distress, no wheezes, and no accessory muscle use. Lungs are clear to auscultation bilaterally. Cardiovascular: Regular rate and rhythm, no murmurs, rubs, or gallops. Bilateral carotid, radial, dorsalis pedis, and posterior tibial pulses intact. Good capillary refill all extremities. Gastrointestinal: Abdomen is soft, nontender, non-distended, no masses, no rebound, no guarding, no peritoneal signs. Musculoskeletal: Normal active ROM of all extremities, atraumatic. Neurological: Hyperaesthesia of ventral left lower extremity. Alert, appropriate , and interactive. The patient has normal DTRs and non-focal cranial nerves, motor, sensory, and cerebellar exam. Skin: No rashes, good turgor, no nodules on palpation. Past medical history: Diabetes, hypertension, a CVA, and compression fractures Past surgical history: Back surgery Family history: Denies Social history: Family at bedside, lives in [place], retired DIAGNOSTICS/PROCEDURES/CRITICAL CARE TIME: Not indicated. DIFFERENTIAL DIAGNOSIS: The differential diagnosis for the patient's weakness included but was not limited to hypoglycemia, infectious process, electrolyte abnormality, neurologic process, anemia, cardiac process, and intoxicants. MEDICAL DECISION MAKING: The patient is an 88 y/o female with a history of diabetes, hypertension, a CVA , and compression fractures presenting with weakness and a decreased appetite for 3 days. She also has frontal left thigh and madrid pain, but denies any injuries or trauma. The pain does not radiate to her back. Per the patient's daughter, the patient has not been taking her insulin medication for several days. On exam she has hyperaesthesia of her left lower extremity. She does have good pulses. Labs ordered. 2125: Patient's labs reveal a UTI. I will start her on Keflex, her first was given prior to discharge. 2126: Reassessed patient and discussed laboratory findings. I have discussed plan for Keflex. 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 I will prescribe her oral Vancomycin to take prophylactically. Return precautions provided; patient is comfortable with this plan. - Data Points Laboratory Results: Laboratory Results 02/12/19 20:53 02/12/19 20:53 02/12/19 02/12/19 02/12/19 21:07 20:53 20:53 WBC 13.73 10^3/uL H 10^3/uL (3.80-9.50) RBC 3.48 10^6/uL L 10^6/uL (4.18-5.33) Hgb 11.5 g/dL L g/dL (12.6-16.3) Hct 35.6 % L % (38.0-47.0) MCV 102.3 fL H fL (81.5-99.8) MCH 33.0 pg pg (27.9-34.1) MCHC 32.3 g/dL L g/dL (32.4-36.7) RDW 14.6 % % (11.5-15.2) Plt Count 212 10^3/uL 10^3/uL (150-400) MPV 10.7 fL fL (8.7-11.7) Neut % (Auto) 57.3 % % (39.3-74.2) Lymph % (Auto) 12.5 % L % (15.0-45.0) [place] % (Auto) 28.8 % H % (4.5-13.0) Eos % (Auto) 0.1 % L % (0.6-7.6) Baso % (Auto) 0.1 % L % (0.3-1.7) Nucleat RBC Rel Count 0.0 % % (0.0-0.2) Absolute Neuts (auto) 7.87 10^3/uL H 10^3/uL (1.70-6.50) Absolute Lymphs (auto) 1.72 10^3/uL 10^3/uL (1.00-3.00) Absolute Monos (auto) 3.95 10^3/uL H 10^3/uL (0.30-0.80) Absolute Eos (auto) 0.01 10^3/uL L 10^3/uL (0.03-0.40) Absolute Basos (auto) 0.01 10^3/uL L 10^3/uL (0.02-0.10) Absolute Nucleated RBC 0.00 10^3/uL 10^3/uL (0-0.01) Immature Gran % 1.2 % H % (0.0-1.1) Immature Gran # 0.16 10^3/uL H 10^3/uL (0.00-0.10) RBC/WBC/PLT Morphology TNP Platelet Estimate TNP Smear Review By Pending Sodium 134 mEq/L L mEq/L (135-145) Potassium 4.0 mEq/L mEq/L (3.5-5.2) Chloride 99 mEq/L mEq/L (97-110) Carbon Dioxide 25 mEq/l mEq/l (22-31) Anion Gap 10 mEq/L mEq/L (6-14) BUN 19 mg/dL mg/dL (7-23) Creatinine 1.2 mg/dL H mg/dL (0.6-1.0) Estimated GFR 43 Glucose 227 mg/dL H mg/dL (70-100) Calcium 9.3 mg/dL mg/dL (8.5-10.4) Total Bilirubin 1.0 mg/dL mg/dL (0.1-1.4) Conjugated Bilirubin 0.3 mg/dL mg/dL (0.0-0.5) Unconjugated Bilirubin 0.7 mg/dL mg/dL (0.0-1.1) AST 22 IU/L IU/L (14-46) ALT 31 IU/L IU/L (9-52) Alkaline Phosphatase 61 IU/L IU/L (38-126) Total Protein 6.2 g/dL L g/dL (6.3-8.2) Albumin 3.6 g/dL g/dL (3.5-5.0) Lipase 200 IU/L IU/L (23-300) Urine Color JEM Urine Appearance MODERATELY TURBID Urine pH 5.0 (5.0-7.5) Ur Specific [place] 1.024 (1.002-1.030) Urine Protein 2+ H (NEGATIVE) Urine Ketones TRACE H (NEGATIVE) Urine Blood NEGATIVE (NEGATIVE) Urine Nitrate NEGATIVE (NEGATIVE) Urine Bilirubin NEGATIVE (NEGATIVE) Urine Urobilinogen 2.0 EU H EU (0.2-1.0) Ur Leukocyte Esterase 2+ H (NEGATIVE) Urine RBC 50-182 /hpf H /hpf (0-3) Urine WBC 50-182 /hpf H /hpf (0-3) Ur Epithelial Cells TRACE /lpf /lpf (NONE-1+) Urine Bacteria 4+ /hpf H /hpf (NONE SEEN) Hyaline Casts 50-182 /lpf H /lpf (0-1) Urine Mucus 4+ /lpf H /lpf (NONE-1+) Urine Glucose NEGATIVE (NEGATIVE) Medications Given: Discontinued Medications Cephalexin HCl (Keflex) 500 mg PO EDNOW ONE PRN Reason: Protocol Stop: 02/12/19 21:25 Last Admin: 02/12/19 21:31 Dose: 500 mg Departure - Departure Disposition: Home, Routine, Self-Care Clinical Impression: UTI (urinary tract infection) Qualifiers: Urinary tract infection type: acute cystitis Hematuria presence: without hematuria Qualified Code(s): N30.00 - Acute cystitis without hematuria Condition: Good Instructions: Urinary Tract Infection in Women (ED) Additional Instructions: 1. Take Keflex as prescribed. 2. Follow-up with your primary doctor within 72 hours. 3. Return to the Emergency Department for fever, worsening pain, flank pain or failure to improve within 72 hours. 4. Take oral vancomycin as prescribed prophylactically for C. Diff. Referrals: Rebeca Washington MD [Primary Care Provider] - As per Instructions Prescriptions: Cephalexin [Keflex (RX)] 500 mg PO TID #30 cap Report Scribed for: Malcolm Adams Report Scribed by: Linda Payne Date of Report: 02/12/19 Time of Report: 20:54
[2019-02-12 21:03] LABS: PLATELET COUNT 212 10^3/uL (150-400)
[2019-02-12] MEDS ORDERED: CEPHALEXIN 500 MG CAP PO ONE (21:24)
[2019-02-12 21:48] VITALS: BP 130/65
== END 2019-02-12 21:39 | disposition home or self-care (01) ==
DX: N30.00 Acute cystitis without hematuria (principal); I10 Essential (primary) hypertension; E11.9 Type 2 diabetes mellitus without complications

== ENCOUNTER 2019-02-20 17:23 | Inpatient (IN) | payer OTHER, BC ==
[2019-02-20] MEDS ORDERED: NS 1,000 ML IV ONE (17:48)
--- NOTE | 2019-02-20 17:53 | EDPHY ---
H & P Stated Complaint: weak, d/c appetite, fatigued, failure to thrive, recent UTI w/ abx Time Seen by Provider: 02/20/19 17:41 HPI/ROS: CHIEF COMPLAINT: Failure to thrive HISTORY OF PRESENT ILLNESS: Patient is an 88-year-old female brought to the emergency department by her daughter for "failure to thrive". Patient has a history of CVA with residual persistent vertigo, also history of diabetes, hypertension and chronic back pain. She was seen here 8 days ago and diagnosed with a urinary tract infection and started on Keflex. She was also given oral vancomycin which she has taken periodically in the past for a history of C diff. The patient's daughter states that over the last weak since she was seen here previously she has rarely been able to get out of bed on her own. She cannot prepare her meals. She cannot get to the bathroom. Daughter states that she is too weak. Patient denies any acute pain. She states that her dark urine has improved. No urinary frequency. No nausea vomiting. No headache. No chest pain. No shortness of breath. No coughing. No fever. No upper respiratory symptoms. No rashes or wounds. She does have mild diarrhea since beginning Keflex. She is taking prednisone chronically for arthritis. Severity: Moderate Modifying factors: None REVIEW OF SYSTEMS: Constitutional: See HPI denies: chills, fever, recent injury EENTM: denies: blurred vision, double vision, nose congestion Respiratory: denies: cough, shortness of breath Cardiac: denies: chest pain, irregular heart rate, lightheadedness, palpitations Gastrointestinal/Abdominal: See HPI denies: abdominal pain, nausea, vomiting, blood streaked stools Genitourinary: denies: dysuria, frequency, hematuria, pain Musculoskeletal: denies: joint pain, muscle pain Skin: denies: lesions, rash, jaundice, bruising Neurological: denies: headache, numbness, paresthesia, tingling, dizziness, weakness Hematologic/Lymphatic: denies: blood clots, easy bleeding, easy bruising Immunologic/allergic: denies: HIV/AIDS, transplant 10 systems reviewed and negative except as noted EXAM: GENERAL: Well-appearing, well-nourished and in no acute distress. HEAD: Atraumatic, normocephalic. EYES: Pupils equal round and reactive to light, extraocular movements intact, sclera anicteric, conjunctiva are normal. ENT: TMs normal, nares patent, oropharynx clear without exudates. Moist mucous membranes. NECK: Normal range of motion, supple without lymphadenopathy or JVD. LUNGS: Breath sounds clear to auscultation bilaterally and equal. No wheezes rales or rhonchi. HEART: Regular rate and rhythm without murmurs, rubs or gallops. ABDOMEN: Soft, nontender, normoactive bowel sounds. No guarding, no rebound. No masses appreciated. BACK: No CVA tenderness, no spinal tenderness, step-offs or deformities EXTREMITIES: Normal range of motion, no pitting or edema. No clubbing or cyanosis. NEUROLOGICAL: Cranial nerves II through XII grossly intact. Normal speech. 4/ 5 strength, normal movement in all extremities, normal sensation, normal reflexes PSYCH: Normal mood, normal affect. Pleasant SKIN: Warm, dry, normal turgor, no visible rashes or lesions. Source: Patient Exam Limitations: No limitations - Personal History Current Tetanus/Diphtheria Vaccine: Yes Current Tetanus Diphtheria and Acellular Pertussis (TDAP): Yes Tetanus Vaccine Date: 2010 - Medical/Surgical History Hx Asthma: No Hx Chronic Respiratory Disease: No Hx Diabetes: Yes Hx Cardiac Disease: Yes Hx Renal Disease: No Hx Cirrhosis: No Hx Alcoholism: No Hx HIV/AIDS: No Hx Splenectomy or Spleen Trauma: No Other PMH: PMH: CVA with residual persistent vertigo, TEMPORAL ARTERITIS, HTN, DM (lantus), lumbar compression fractures, chronic back pain, arthritis. Uses wheelchair when leaves apartment, otherwise uses furntiture, walker - Family History Significant Family History: No pertinent family hx - Social History Smoking Status: Former smoker Alcohol Use: Sober Drug Use: None Constitutional: Initial Vital Signs Temperature (C) 36.8 C 02/20/19 17:30 Heart Rate 112 H 02/20/19 17:30 Respiratory Rate 16 02/20/19 17:30 Blood Pressure 120/83 H 02/20/19 17:30 O2 Sat (%) 96 02/20/19 17:30 O2 Delivery Mode Nasal Cannula O2 (L/minute) 2 Allergies/Adverse Reactions: Iodinated Contrast- Oral and IV Dye Allergy (Unknown, Verified 02/12/19 20:44) Itching Home Medications: Medication Instructions Recorded Aspirin [Aspirin 325 mg (*)] 325 mg PO DAILY 07/10/14 predniSONE [Prednisone] 20 mg PO DAILY 09/23/16 Multivitamins [Multivitamin (*)] 1 each PO DAILY 12/01/17 Dorzolamide/Timolol [Cosopt (*)] 1 drops EACHEYE BID 04/16/18 Latanoprost 0.005% [Xalatan 0.005% 1 drops EACHEYE HS 04/16/18 (*)] Cholecalciferol Vit D3 [Vitamin D3 1,000 units PO DAILY 11/13/18 (*)] Calcium Carb W/Vit D [Calcium Carb 500 mg PO BID tab 11/19/18 W/Vit D 500/200 (*)] Tears/Dextran 70/Hypromellose 1 drop EACHEYE Q2 PRN opht.btl 11/19/18 [Natural Balance Tears (*)] Acetaminophen [Tylenol 325mg (*)] 650 mg PO Q4HRS PRN tab 12/07/18 Insulin Glargine,Hum.rec.anlog 10 unit SQ HS #0 12/07/18 [Basaglar Kwikpen U-100] Vancomycin [Vancomycin (*)] 125 mg PO Q6 14 Days cap 12/23/18 Carvedilol [Coreg (*)] 3.125 mg PO BIDMEAL 02/20/19 Cephalexin [Keflex (*)] 500 mg PO TID 02/20/19 Medical Decision Making - Diagnostics EKG Interpretation: An EKG obtained and was read and documented in trace view. Please see trace view for full reading and report. Tachycardic, sinus rhythm, similar to previous Imaging Results: Imaging Impressions Chest X-Ray 02/20/19 17:50 Impression: No evidence for acute cardiopulmonary abnormality. Chronic findings , as above. Imaging: Discussed imaging studies w/ administration specialist Radiologist ED Course/Re-evaluation: 7:25 p.m. Patient's lab work and x-ray are reassuring. Urinalysis and stool sample pending. The white count is elevated. Family states that she is diagnosed with a mild chronic form of leukemia several years ago. She is also on prednisone. Her baseline white count appears to be around 11 or 12 but does jump around quite a bit. It was 13 when she was here last week. 8:00 p.m. discussed the case with Dr Giron will admit to the medical floor. Differential Diagnosis: Partial list of the Differential diagnosis considered include but were not limited to; dehydration, electrolyte abnormality, colitis, urinary tract infection and although unlikely based on the history and physical exam, I also considered pneumonia, sepsis, meningitis, CVA. - Data Points Laboratory Results: Laboratory Results 02/20/19 18:20 02/20/19 18:20 02/20/19 02/20/19 02/20/19 19:15 18:28 18:20 WBC RBC Hgb Hct MCV MCH MCHC RDW Plt Count MPV Neut % (Auto) Lymph % (Auto) [place] % (Auto) Eos % (Auto) Baso % (Auto) Nucleat RBC Rel Count Absolute Neuts (auto) Absolute Lymphs (auto) Absolute Monos (auto) Absolute Eos (auto) Absolute Basos (auto) Absolute Nucleated RBC Immature Gran % Immature Gran # Platelet Estimate Smear Review By VBG Lactic Acid Sodium Potassium Chloride Carbon Dioxide Anion Gap BUN Creatinine Estimated GFR Glucose Calcium Total Bilirubin Conjugated Bilirubin Unconjugated Bilirubin AST ALT Alkaline Phosphatase POC Troponin I 0.02 ng/mL ng/mL (0.00-0.08) Total Protein Albumin TSH 1.880 uIU/mL uIU/mL (0.465-4.680) Urine Color YELLOW Urine Appearance CLEAR Urine pH 6.0 (5.0-7.5) Ur Specific [place] 1.015 (1.002-1.030) Urine Protein 1+ H (NEGATIVE) Urine Ketones 1+ H (NEGATIVE) Urine Blood NEGATIVE (NEGATIVE) Urine Nitrate NEGATIVE (NEGATIVE) Urine Bilirubin NEGATIVE (NEGATIVE) Urine Urobilinogen NEGATIVE EU EU (0.2-1.0) Ur Leukocyte Esterase NEGATIVE (NEGATIVE) Urine RBC 1-3 /hpf /hpf (0-3) Urine WBC 1-3 /hpf /hpf (0-3) Ur Epithelial Cells TRACE /lpf /lpf (NONE-1+) Hyaline Casts 1-5 /lpf /lpf (0-1) Urine Mucus TRACE /lpf /lpf (NONE-1+) Urine Glucose NEGATIVE (NEGATIVE) 02/20/19 02/20/19 02/20/19 18:20 18:20 18:20 WBC 17.11 10^3/uL H 10^3/uL (3.80-9.50) RBC 3.37 10^6/uL L 10^6/uL (4.18-5.33) Hgb 11.3 g/dL L g/dL (12.6-16.3) Hct 33.8 % L % (38.0-47.0) MCV 100.3 fL H fL (81.5-99.8) MCH 33.5 pg pg (27.9-34.1) MCHC 33.4 g/dL g/dL (32.4-36.7) RDW 14.5 % % (11.5-15.2) Plt Count 266 10^3/uL 10^3/uL (150-400) MPV 11.2 fL fL (8.7-11.7) Neut % (Auto) 43.8 % % (39.3-74.2) Lymph % (Auto) 14.6 % L % (15.0-45.0) [place] % (Auto) 40.3 % H % (4.5-13.0) Eos % (Auto) 0.1 % L % (0.6-7.6) Baso % (Auto) 0.1 % L % (0.3-1.7) Nucleat RBC Rel Count 0.0 % % (0.0-0.2) Absolute Neuts (auto) 7.51 10^3/uL H 10^3/uL (1.70-6.50) Absolute Lymphs (auto) 2.49 10^3/uL 10^3/uL (1.00-3.00) Absolute Monos (auto) 6.90 10^3/uL H 10^3/uL (0.30-0.80) Absolute Eos (auto) 0.01 10^3/uL L 10^3/uL (0.03-0.40) Absolute Basos (auto) 0.01 10^3/uL L 10^3/uL (0.02-0.10) Absolute Nucleated RBC 0.00 10^3/uL 10^3/uL (0-0.01) Immature Gran % 1.1 % % (0.0-1.1) Immature Gran # 0.19 10^3/uL H 10^3/uL (0.00-0.10) Platelet Estimate ADEQUATE (ADEQ) Smear Review By Pending VBG Lactic Acid 1.9 mmol/L mmol/L (0.7-2.1) Sodium 136 mEq/L mEq/L (135-145) Potassium 3.8 mEq/L mEq/L (3.5-5.2) Chloride 99 mEq/L mEq/L (97-110) Carbon Dioxide 25 mEq/l mEq/l (22-31) Anion Gap 12 mEq/L mEq/L (6-14) BUN 16 mg/dL mg/dL (7-23) Creatinine 0.9 mg/dL mg/dL (0.6-1.0) Estimated GFR 59 Glucose 133 mg/dL H mg/dL (70-100) Calcium 9.8 mg/dL mg/dL (8.5-10.4) Total Bilirubin 0.8 mg/dL mg/dL (0.1-1.4) Conjugated Bilirubin 0.0 mg/dL mg/dL (0.0-0.5) Unconjugated Bilirubin 0.8 mg/dL mg/dL (0.0-1.1) AST 20 IU/L IU/L (14-46) ALT 18 IU/L IU/L (9-52) Alkaline Phosphatase 63 IU/L IU/L (38-126) POC Troponin I Total Protein 6.2 g/dL L g/dL (6.3-8.2) Albumin 3.5 g/dL g/dL (3.5-5.0) TSH Urine Color Urine Appearance Urine pH Ur Specific [place] Urine Protein Urine Ketones Urine Blood Urine Nitrate Urine Bilirubin Urine Urobilinogen Ur Leukocyte Esterase Urine RBC Urine WBC Ur Epithelial Cells Hyaline Casts Urine Mucus Urine Glucose 02/20/19 17:50 WBC REJ RBC REJ Hgb REJ Hct REJ MCV REJ MCH REJ MCHC REJ RDW REJ Plt Count REJ MPV REJ Neut % (Auto) REJ Lymph % (Auto) REJ [place] % (Auto) REJ Eos % (Auto) REJ Baso % (Auto) REJ Nucleat RBC Rel Count REJ Absolute Neuts (auto) REJ Absolute Lymphs (auto) REJ Absolute Monos (auto) REJ Absolute Eos (auto) REJ Absolute Basos (auto) REJ Absolute Nucleated RBC REJ Immature Gran % REJ Immature Gran # REJ Platelet Estimate Smear Review By VBG Lactic Acid Sodium Potassium Chloride Carbon Dioxide Anion Gap BUN Creatinine Estimated GFR Glucose Calcium Total Bilirubin Conjugated Bilirubin Unconjugated Bilirubin AST ALT Alkaline Phosphatase POC Troponin I Total Protein Albumin TSH Urine Color Urine Appearance Urine pH Ur Specific [place] Urine Protein Urine Ketones Urine Blood Urine Nitrate Urine Bilirubin Urine Urobilinogen Ur Leukocyte Esterase Urine RBC Urine WBC Ur Epithelial Cells Hyaline Casts Urine Mucus Urine Glucose Medications Given: Calcium/Vitamin D (Calcium Carb W/Vit D) 500 mg PO BID [facility] Stop: 08/19/19 20:59 Last Admin: 02/20/19 22:09 Dose: 500 mg Cephalexin HCl (Keflex) 500 mg PO TID [facility] PRN Reason: Protocol Stop: 02/22/19 23:00 Last Admin: 02/20/19 22:09 Dose: 500 mg Dorzolamide/Timolol (Cosopt) 1 drops EACHEYE BID [facility] Stop: 08/19/19 20:59 Last Admin: 02/20/19 21:59 Dose: Not Given Sodium Chloride (Ns) 1,000 mls @ 100 mls/hr IV CONT [facility] Stop: 08/19/19 20:59 Last Admin: 02/20/19 22:07 Dose: 1,000 mls Insulin Glargine (Lantus Syringe) 10 units SC HS [facility] Stop: 08/19/19 20:59 Last Admin: 02/20/19 22:13 Dose: 10 units Latanoprost (Xalatan 0.005%) 1 drops EACHEYE HS [facility] Stop: 08/19/19 20:59 Last Admin: 02/20/19 21:59 Dose: Not Given Vancomycin HCl (Vancomycin Oral Liquid) 125 mg PO QID [facility] Stop: 03/22/19 21:29 Last Admin: 02/20/19 22:10 Dose: 125 mg Discontinued Medications Sodium Chloride (Ns) 1,000 mls @ 0 mls/hr IV EDNOW ONE; Wide Open PRN Reason: Protocol Stop: 02/20/19 17:49 Last Admin: 02/20/19 18:24 Dose: 1,000 mls Point of Care Test Results: Chemistry 02/20/19 18:28 POC Troponin I 0.02 ng/mL ng/mL (0.00-0.08) Departure - Departure Disposition: [facility] Inpatient Acute Clinical Impression: Generalized weakness Condition: Fair
--- NOTE | 2019-02-20 18:21 | CPEKG ---
Test Reason : OPEN Blood Pressure : / mmHG Vent. Rate : 118 BPM Atrial Rate : 120 BPM P-R Int : 177 ms QRS Dur : 097 ms QT Int : 315 ms P-R-T Axes : 059 -58 089 degrees QTc Int : 442 ms Left anterior fascicular block Left ventricular hypertrophy Anterior infarct, old Confirmed by Altaf Macedo ([id number]) on 02/20/2019 6:21:03 PM Referred By: ALTAF MACEDO Confirmed By:Altaf Macedo
[2019-02-20 19:08] LABS: PLATELET COUNT 266 10^3/uL (150-400)
[2019-02-20] MEDS ORDERED: HYDROmorphONE/DILAUDID 1 MG/ML INJ IVP PRN (20:47)
[2019-02-20] MEDS ORDERED: ACETAMINOPHEN 325 MG TAB PO PRN (20:47)
[2019-02-20] MEDS ORDERED: PROMETHAZINE HCL 25 MG/ML INJ IVP PRN (20:47)
[2019-02-20] MEDS ORDERED: ONDANSETRON DISINTEGRATING 4 MG TAB PO PRN (20:47)
[2019-02-20] MEDS ORDERED: HYDROCODONE/APAP 5/325 TAB PO PRN (20:47)
[2019-02-20] MEDS ORDERED: ONDANSETRON 4 MG/2 ML VIAL IVP PRN (20:47)
[2019-02-20] MEDS ORDERED: TEARS/DEXTRAN 70/HYPROMELLOSE 15 ML OPHT.BTL EACHEYE PRN (20:50)
[2019-02-20] MEDS ORDERED: D50W 25 GM/50 ML VIAL IVP PRN (20:51)
[2019-02-20] MEDS ORDERED: INSULIN GLARGINE 100 UNITS/ML UNIT SC SCH (21:00)
[2019-02-20] MEDS: LATANOPROST 0.005% 2.5 ML OPHT DROPS EACHEYE SCH (21:59)
[2019-02-20] MEDS: DORZOLAMIDE/TIMOLOL 10 ML OPHT.BTL EACHEYE SCH (21:59)
[2019-02-20] MEDS: NS 1,000 ML IV SCH (22:07)
[2019-02-20] MEDS: CEPHALEXIN 500 MG CAP PO SCH (22:09)
[2019-02-20] MEDS: CALCIUM CARB W/VIT D 500 MG TAB PO SCH (22:09)
[2019-02-20] MEDS: VANCOMYCIN 125 MG/2.5 ML UDL PO SCH (22:10)
--- NOTE | 2019-02-20 22:56 | PDGENHP ---
History and Physical - Chief Complaint weakness - History of Present Illness 88 yo F with PMH that includes DM2, CVA, temporal arteritis and c diff admitted in November for c diff following abx tx for UTI, with hospital stay complicated by deconditioning and generalized weakness necessitating discharge to SNF. She was seen in ER last week with increased weakness and diagnosed with UTI and started on keflex as well as oral vanco given her hx of c diff. She presents with her daughter from home today with worsening weakness now to the point where she cannot walk on her own or even get up to go the bathroom. Patient lives alone and daughter notes that over the past week, the weakness has progressed to the point where she cannot take care of herself at all, has hardly gotten out of bed and has been incontinent of stool at home. Patient is very somnolent and curled up in a ball in bed during my evaluation, she is not oriented to place or date, but when explained that she is in the hospital she seems to remember what is going on. She states she thinks she may have been having diarrhea, she denies any new pain other than chronic leg pain. She states she feels very weak and exhausted. History Information - Allergies/Home Medication List Allergies/Adverse Reactions: Iodinated Contrast- Oral and IV Dye Allergy (Unknown, Verified 02/12/19 20:44) Itching Home Medications: Aspirin [Aspirin 325 mg (*)] 325 mg PO DAILY 07/10/14 [Last Taken 02/20/19] predniSONE [Prednisone] 20 mg PO DAILY 09/23/16 [Last Taken 02/20/19] Multivitamins [Multivitamin (*)] 1 each PO DAILY 12/01/17 [Last Taken 02/20/19] Dorzolamide/Timolol [Cosopt (*)] 1 drops EACHEYE BID 04/16/18 [Last Taken ] Latanoprost 0.005% [Xalatan 0.005% (*)] 1 drops EACHEYE HS 04/16/18 [Last Taken 02/19/19] Cholecalciferol Vit D3 [Vitamin D3 (*)] 1,000 units PO DAILY 11/13/18 [Last Taken 02/20/19] Carvedilol [Coreg (*)] 3.125 mg PO BIDMEAL 02/20/19 [Last Taken 02/20/19] Cephalexin [Keflex (*)] 500 mg PO TID 02/20/19 [Last Taken 02/20/19 08:00] I have personally reviewed and updated: family history, medical history, social history, surgical history Past Medical History: temporal arteritis, htn, cva, glaucoma, iddm, diagnosed with bone cancer. - Past Medical History arthritis, CHF, CVA (residual chronic vertigo), diabetes type 2, hypertension Additional medical history: Temporal arteritis. Chronic leukemia, followed by Dr. Adame. Multiple compression fractures s/p kyphoplasty T6, T11. B/L vertebral artery occlusion. recent c diff - Surgical History Additional surgical history: kyphoplasty x2 - Family History Positive for: non-pertinent - Social History Smoking Status: Former smoker Alcohol Use: Sober Drug Use: None Additional social history: Lives alone in an apartment Review of Systems Review of Systems: ROS: 10pt was reviewed & negative except for what was stated in HPI & below Physical Exam Physical Exam: Temp Pulse Resp BP Pulse Ox 37.2 C 67 23 H 137/55 H 96 02/20/19 21:19 02/20/19 21:19 02/20/19 21:19 02/20/19 21:19 02/20/19 21:19 O2 (L/minute) 3.5 Constitutional: chronically ill appearing, uncomfortable Eyes: PERRL, anicteric sclera Ears, Nose, Mouth, Throat: hearing normal, dry mucous membranes Cardiovascular: regular rate and rhythym, no murmur, rub, or gallop, No edema Respiratory: no respiratory distress, no rales or rhonchi Gastrointestinal: normoactive bowel sounds, soft, non-tender abdomen Genitourinary: no bladder tenderness Skin: warm, normal color Musculoskeletal: generalized weakness Neurologic: CN II-XII Intact, No AAOx3 Psychiatric: encephalopathic, other (somnolent, minimally interactive) Lab Data & Imaging Review 02/20/19 18:20 02/20/19 18:20 WBC 17.11 10^3/uL (3.80-9.50) H 02/20/19 18:20 RBC 3.37 10^6/uL (4.18-5.33) L 02/20/19 18:20 Hgb 11.3 g/dL (12.6-16.3) L 02/20/19 18:20 Hct 33.8 % (38.0-47.0) L 02/20/19 18:20 MCV 100.3 fL (81.5-99.8) H 02/20/19 18:20 MCH 33.5 pg (27.9-34.1) 02/20/19 18:20 MCHC 33.4 g/dL (32.4-36.7) 02/20/19 18:20 RDW 14.5 % (11.5-15.2) 02/20/19 18:20 Plt Count 266 10^3/uL (150-400) 02/20/19 18:20 MPV 11.2 fL (8.7-11.7) 02/20/19 18:20 Neut % (Auto) 43.8 % (39.3-74.2) 02/20/19 18:20 Lymph % (Auto) 14.6 % (15.0-45.0) L 02/20/19 18:20 [place] % (Auto) 40.3 % (4.5-13.0) H 02/20/19 18:20 Eos % (Auto) 0.1 % (0.6-7.6) L 02/20/19 18:20 Baso % (Auto) 0.1 % (0.3-1.7) L 02/20/19 18:20 Nucleat RBC Rel Count 0.0 % (0.0-0.2) 02/20/19 18:20 Absolute Neuts (auto) 7.51 10^3/uL (1.70-6.50) H 02/20/19 18:20 Absolute Lymphs (auto) 2.49 10^3/uL (1.00-3.00) 02/20/19 18:20 Absolute Monos (auto) 6.90 10^3/uL (0.30-0.80) H 02/20/19 18:20 Absolute Eos (auto) 0.01 10^3/uL (0.03-0.40) L 02/20/19 18:20 Absolute Basos (auto) 0.01 10^3/uL (0.02-0.10) L 02/20/19 18:20 Absolute Nucleated RBC 0.00 10^3/uL (0-0.01) 02/20/19 18:20 Immature Gran % 1.1 % (0.0-1.1) 02/20/19 18:20 Immature Gran # 0.19 10^3/uL (0.00-0.10) H 02/20/19 18:20 Platelet Estimate ADEQUATE (ADEQ) 02/20/19 18:20 VBG Lactic Acid 1.9 mmol/L (0.7-2.1) 02/20/19 18:20 Sodium 136 mEq/L (135-145) 02/20/19 18:20 Potassium 3.8 mEq/L (3.5-5.2) 02/20/19 18:20 Chloride 99 mEq/L (97-110) 02/20/19 18:20 Carbon Dioxide 25 mEq/l (22-31) 02/20/19 18:20 Anion Gap 12 mEq/L (6-14) 02/20/19 18:20 BUN 16 mg/dL (7-23) 02/20/19 18:20 Creatinine 0.9 mg/dL (0.6-1.0) 02/20/19 18:20 Estimated GFR 59 02/20/19 18:20 Glucose 133 mg/dL (70-100) H 02/20/19 18:20 POC Glucose 125 mg/dL (70-100) H 02/20/19 21:14 Calcium 9.8 mg/dL (8.5-10.4) 02/20/19 18:20 Total Bilirubin 0.8 mg/dL (0.1-1.4) 02/20/19 18:20 Conjugated Bilirubin 0.0 mg/dL (0.0-0.5) 02/20/19 18:20 Unconjugated Bilirubin 0.8 mg/dL (0.0-1.1) 02/20/19 18:20 AST 20 IU/L (14-46) 02/20/19 18:20 ALT 18 IU/L (9-52) 02/20/19 18:20 Alkaline Phosphatase 63 IU/L (38-126) 02/20/19 18:20 POC Troponin I 0.02 ng/mL (0.00-0.08) 02/20/19 18:28 Total Protein 6.2 g/dL (6.3-8.2) L 02/20/19 18:20 Albumin 3.5 g/dL (3.5-5.0) 02/20/19 18:20 TSH 1.880 uIU/mL (0.465-4.680) 02/20/19 18:20 Urine Color YELLOW 02/20/19 19:15 Urine Appearance CLEAR 02/20/19 19:15 Urine pH 6.0 (5.0-7.5) 02/20/19 19:15 Ur Specific [place] 1.015 (1.002-1.030) 02/20/19 19:15 Urine Protein 1+ (NEGATIVE) H 02/20/19 19:15 Urine Ketones 1+ (NEGATIVE) H 02/20/19 19:15 Urine Blood NEGATIVE (NEGATIVE) 02/20/19 19:15 Urine Nitrate NEGATIVE (NEGATIVE) 02/20/19 19:15 Urine Bilirubin NEGATIVE (NEGATIVE) 02/20/19 19:15 Urine Urobilinogen NEGATIVE EU (0.2-1.0) 02/20/19 19:15 Ur Leukocyte Esterase NEGATIVE (NEGATIVE) 02/20/19 19:15 Urine RBC 1-3 /hpf (0-3) 02/20/19 19:15 Urine WBC 1-3 /hpf (0-3) 02/20/19 19:15 Ur Epithelial Cells TRACE /lpf (NONE-1+) 02/20/19 19:15 Hyaline Casts 1-5 /lpf (0-1) 02/20/19 19:15 Urine Mucus TRACE /lpf (NONE-1+) 02/20/19 19:15 Urine Glucose NEGATIVE (NEGATIVE) 02/20/19 19:15 Visualized and Interpreted Chest x-ray results: Yes Chest X-Ray results: no infiltrate Visualized and Interpreted EKG results: Yes EKG additional interpertation: LAFB, 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 On review of records this was present to less of a degree in November and on her recent ER visit so suspect this is more of a subacute decline and FTT rather than an acute change. There is some question of diarrhea and recent UTI so eval for infection underway as below however she is already on po vanco and keflex for uti. pt/ot/ cm to eval # leukocytosis: with hx of chronic leukemia and persistently elevated wbc, though this is higher than usual for her, will trend, UA w/o e/o UTI, GI pathogen panel ordered, no pna on cxr, resp pcr pending as well as blood cultures # cva: with residual persistent vertigo, no focal neuro findings to suggest recurrent CVA at this time, continue asa # temporal arteritis: for which she is on chronic prednisone, nothing to suggest adrenal insufficiency other than fatigue currently (BP, electrolytes wnl ), will continue home prednisone dose, consider stress dosing if changes # DM2: SSI, sugars have been low and patient has not been eating much per daughter, will hold glargine for now, last a1c was 8.4 # metabolic encephalopathy: patient somnolent and minimally interactive, oriented to self but initially not to place or time until reminded, w/u for infection as above # recent UTI: with UA currently not c/w infection, on keflex still with last dose on 02/22 # hx of c diff: currently on po vanco while on abx for above, some concern of diarrhea at home, gi pathogen panel pending # Code status: daughter states that patient 'has a DNR, but wants you to try CPR briefly if something happens, and if it doesn't work, not to try for a long time' tried to clarify what the comment about 'having a DNR' means, but unclear and prior hospitalizations report 'FC'--will ask for palliative consult # IP status Patient new to my care. Old records reviewed and summarized as above. Care plan reviewed with ER doctor, further hx obtained from patients daughter present at bedside.
[2019-02-21] MEDS: VANCOMYCIN 125 MG/2.5 ML UDL PO SCH ×4 (05:49→20:06)
[2019-02-21 06:02] LABS: PLATELET COUNT 202 10^3/uL (150-400)
[2019-02-21] MEDS: NS 1,000 ML IV SCH (08:18)
[2019-02-21] MEDS: INSULIN LISPRO 100 UNIT/ML SC SCH ×3 (10:04→18:35)
[2019-02-21] MEDS: predniSONE 20 MG TAB PO SCH (10:33)
[2019-02-21] MEDS: CALCIUM CARB W/VIT D 500 MG TAB PO SCH ×2 (10:33→20:06)
[2019-02-21] MEDS: ASPIRIN 325 MG TAB PO SCH (10:33)
[2019-02-21] MEDS: CARVEDILOL 3.125 MG TAB PO SCH ×2 (10:33→17:14)
[2019-02-21] MEDS: CHOLECALCIFEROL VIT D3 1,000 UNITS TAB PO SCH (10:34)
[2019-02-21] MEDS: MULTIVITAMINS 1 EACH TAB PO SCH (10:34)
[2019-02-21] MEDS: CEPHALEXIN 500 MG CAP PO SCH (10:34)
--- NOTE | 2019-02-21 10:45 | PDMN ---
Medical Necessity Medical necessity: Pt meets IP criteria as of 02/20/2019 per and [facility] ( General Discharge Criteria); est los > 2 mn for ongoing tx and management of new weakness that for the last week has impaired the pt's ability to perform ADL 's at her baseline, pt is newly incontinent of stool as she is too weak to walk to the bathroom, pt is no longer safe to live alone, currently on PO ABX for UTI ; requiring palliative care consult, PT/OT, and case management.
[2019-02-21] MEDS: DORZOLAMIDE/TIMOLOL 10 ML OPHT.BTL EACHEYE SCH ×2 (12:10→22:05)
--- NOTE | 2019-02-21 13:39 | HOSPPROG ---
Hospitalist Progress Note Assessment/Plan: 88 yo F with PMH that includes CVA, DM2, temporal arteritis presenting with generalized weakness progressing to where she is no longer able to care for herself and concerns for FTT. First encounter, chart reviewed. # generalized weakness: possibly related to acute infection vs FTT PT/OT #Fever etiol unclear BC pending Urine cx pending consider ID consult if etiol conts to be unclear # leukocytosis: with hx of chronic leukemia persistently elevated wbc, higher than usual for her, will trend work up UTI GI pathogen panel ordered no pna on cxr, resp pcr negative blood cultures pending #UTI: diagnosed on 02/12/19 placed on keflex no culture done start CTX today await culture results #Septic hypotensive, fever, tachy bolus fluids, LR 1 liter # cva: with residual persistent vertigo no focal neuro findings to suggest recurrent CVA at this time, continue asa # temporal arteritis: for which she is on chronic prednisone, will continue home prednisone dose, consider stress dosing if changes # DM2: SSI, sugars have been low and patient has not been eating much per daughter, will hold glargine for now, last a1c was 8.4 # metabolic encephalopathy: resolved w/u for infection as above # recent UTI: with UA currently not c/w infection, finished 10 days keflex now with fever # hx of c diff: currently on po vanco while on abx for above, some concern of diarrhea at home, gi pathogen panel ordered will get a KUB # Code status: unclear FC for now daughter to verify DNR Subjective: Feeling better then yesterday. No specific issues. No pain. Wants to go home. Objective: Vital Signs Temp Pulse Resp BP Pulse Ox 38.5 C H 102 H 24 H 95/34 L 95 02/21/19 11:40 02/21/19 11:40 02/21/19 11:40 02/21/19 11:40 02/21/19 11:40 Microbiology 02/20/19 22:08 Respiratory Panel (PCR) - Final Nasal, Sinus - Swab No Organism Detected By Pcr Laboratory Results 02/21/19 05:29 02/21/19 05:29 02/20/19 02/21/19 02/22/19 05:59 05:59 05:59 Intake Total 925 Output Total 200 Balance 725 - Physical Exam Constitutional: appears nourished, not in pain, chronically ill appearing Eyes: PERRL, anicteric sclera, EOMI Ears, Nose, Mouth, Throat: moist mucous membranes, hearing normal, ears appear normal Cardiovascular: tachycardia, No JVD, No edema Respiratory: no respiratory distress, no rales or rhonchi, reduced air movement Gastrointestinal: normoactive bowel sounds, No tenderness, No ascites Skin: warm, normal color, No mottled Musculoskeletal: normal joint ROM, no joint effusions, generalized weakness Psychiatric: not anxious, not encephalopathic, poor insight, poor judgement ICD10 Worksheet Patient Problems: Problems Problem Status Onset Weakness Acute Abdominal pain Acute Acute delirium Acute Adrenal suppression Acute C. difficile diarrhea Acute 12/30/14 DVT prophylaxis Acute Diarrhea Acute Dizziness Acute Fever Acute Left ankle pain Acute Lethargy Acute Macrocytosis Acute Sepsis Acute Systolic murmur Acute Tachycardia Acute Temporal arteritis Acute Tongue ulceration Acute
[2019-02-21] MEDS: LR 1,000 ML IV SCH (14:33)
--- NOTE | 2019-02-21 15:51 | ASMTCMCOM ---
CM Note CM Note Notes: Chart reviewed and plan of care discussed with [facility]. Apparently there are plans in place for patient to ulitmately move to [place] and enter [place]. Currently lives alone and was found to be unresponsive and incontinent. Therapies unable to assess as patient had period of profound hypotension and STAT team was called, CM to follow for needs. Plan: TBD Date Signed: 02/21/2019 03:51 PM Electronically Signed By:Mechelle Garnett RN
[2019-02-21] MEDS: LATANOPROST 0.005% 2.5 ML OPHT DROPS EACHEYE SCH (22:05)
[2019-02-22] MEDS: LR 1,000 ML IV SCH (01:00)
[2019-02-22] MEDS: VANCOMYCIN 125 MG/2.5 ML UDL PO SCH ×4 (05:28→20:34)
[2019-02-22] MEDS: MULTIVITAMINS 1 EACH TAB PO SCH (09:04)
[2019-02-22] MEDS: predniSONE 20 MG TAB PO SCH (09:04)
[2019-02-22] MEDS: ASPIRIN 325 MG TAB PO SCH (09:04)
[2019-02-22] MEDS: CALCIUM CARB W/VIT D 500 MG TAB PO SCH ×2 (09:04→20:35)
[2019-02-22] MEDS: CARVEDILOL 3.125 MG TAB PO SCH ×2 (09:05→17:29)
[2019-02-22] MEDS: CHOLECALCIFEROL VIT D3 1,000 UNITS TAB PO SCH (09:05)
[2019-02-22] MEDS: INSULIN LISPRO 100 UNIT/ML SC SCH ×3 (09:08→17:25)
[2019-02-22] MEDS: oxyCODONE IR 5 MG TAB PO PRN ×2 (09:21→16:58)
[2019-02-22] MEDS: DORZOLAMIDE/TIMOLOL 10 ML OPHT.BTL EACHEYE SCH ×2 (11:03→20:34)
--- NOTE | 2019-02-22 13:20 | ASMTCMCOM ---
CM Note CM Note Notes: Met with pt and dtrYue. Pt is not agreeable to SNF but will accept homecare and some private pay care. Pt has 3 dtrs, 1 in [place], 1 (Layla) in [place], who is the primary caregiver, and 1 dtr in [place] where pt will be moving next month. Pt reviewed hc list and wants referral sent to [facility]. Dtrs want [facility] care for 1 week when Layla is out of town. CM brought in [facility] and they would like CM to contact [facility]. Referrals sent and [facility] can accept. [facility] will call Layla to discuss needs and what they can offer. 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
--- NOTE | 2019-02-22 13:34 | HOSPPROG ---
Hospitalist Progress Note Assessment/Plan: 88 yo F with PMH that includes CVA, DM2, temporal arteritis presenting with generalized weakness progressing to where she is no longer able to care for herself and concerns for FTT. # generalized weakness: possibly related to acute infection vs FTT PT/OT #Fever etiol unclear BC pending Urine cx pending consider ID consult if etiol conts to be unclear # leukocytosis: with hx of chronic leukemia persistently elevated wbc, higher than usual for her, will trend work up UTI GI pathogen panel ordered no pna on cxr, resp pcr negative blood cultures NGTD #UTI: diagnosed on 02/12/19 placed on keflex no culture done start CTX D#2 await culture results #Septic hypotensive, fever, tachy bolus fluids, LR 1 liter resolved # cva: with residual persistent vertigo no focal neuro findings to suggest recurrent CVA at this time, continue asa # temporal arteritis: for which she is on chronic prednisone, will continue home prednisone dose, consider stress dosing if changes # DM2: SSI, sugars have been low and patient has not been eating much per daughter, will hold glargine for now, last a1c was 8.4 # metabolic encephalopathy: resolved w/u for infection as above # recent UTI: with UA currently not c/w infection, finished 10 days keflex appears to be responding to CTX # hx of c diff: stool negative currently on po vanco while on abx for above, some concern of diarrhea at home, gi pathogen panel E.Coli, appears self limiting KUB stable # Code status: FC #Dispo pt wants to go home needs care givers D/W PT and daughter and CM Subjective: Feeling better today. Responding to IV abx. Eating well. Objective: Vital Signs Temp Pulse Resp BP Pulse Ox 36.6 C 86 16 124/65 H 92 02/22/19 11:19 02/22/19 11:19 02/22/19 11:19 02/22/19 11:19 02/22/19 11:19 Microbiology 02/21/19 19:00 Gastrointestinal Tract Panel (PCR) - Final Stool E.coli Enteroaggregative(Eaec) 02/20/19 22:08 Respiratory Panel (PCR) - Final Nasal, Sinus - Swab No Organism Detected By Pcr Laboratory Results 02/21/19 05:29 02/21/19 05:29 02/21/19 02/22/19 02/23/19 05:59 05:59 05:59 Intake Total 925 4372 300 Output Total 200 1200 300 Balance 725 3172 0 - Physical Exam Constitutional: appears nourished, chronically ill appearing, obese Eyes: PERRL, anicteric sclera, EOMI Ears, Nose, Mouth, Throat: moist mucous membranes, hearing normal, ears appear normal Cardiovascular: regular rate and rhythym, No JVD, No edema Respiratory: no respiratory distress, no rales or rhonchi, reduced air movement Gastrointestinal: normoactive bowel sounds, No tenderness, No ascites Skin: warm, normal color, No mottled Musculoskeletal: normal joint ROM, no joint effusions, generalized weakness Neurologic: AAOx3 Psychiatric: not anxious, not encephalopathic, thought process linear ICD10 Worksheet Patient Problems: Problems Problem Status Onset Tongue ulceration Acute Sepsis Acute Adrenal suppression Acute Temporal arteritis Acute Systolic murmur Acute Macrocytosis Acute DVT prophylaxis Acute Abdominal pain Acute C. difficile diarrhea Acute 12/30/14 Acute delirium Acute Fever Acute Tachycardia Acute Left ankle pain Acute Weakness Acute Lethargy Acute Dizziness Acute Diarrhea Acute
[2019-02-22] MEDS: LATANOPROST 0.005% 2.5 ML OPHT DROPS EACHEYE SCH (20:40)
[2019-02-23] MEDS: VANCOMYCIN 125 MG/2.5 ML UDL PO SCH ×4 (05:40→22:52)
[2019-02-23] MEDS: CARVEDILOL 3.125 MG TAB PO SCH ×2 (05:59→17:01)
--- NOTE | 2019-02-23 08:42 | HOSPPROG ---
Hospitalist Progress Note Assessment/Plan: 88 yo F with PMH that includes CVA, DM2, temporal arteritis presenting with generalized weakness progressing to where she is no longer able to care for herself and concerns for FTT. 1st encounter chart reviewed # generalized weakness -PT/OT -recommending home care #Fever -none further -blood culture and urine cultures show no growth # leukocytosis -history of chronic leukemia -GI pathogen panel shows positive Eaec #recent diagnosis of UTI on 02/12/19 -was treated w Keflex -ceftriaxone x 3 doses here -dc abx today -urine cx shows no growth # uncontrolled hypertension -was given Coreg dose earlier today without much improvement -will add low-dose Norvasc and see how she does #Sepsis on admission -resolved #CVA -has persistent vertigo from this -on aspirin therapy # temporal arteritis -resumed home dosing prednisone # DM2 -A1c is 7.4 -on sliding scale -daughter has noted the patient has not been eating much, Glargine on hold # acute metabolic encephalopathy resolve-she is alert, oriented to place, time, person and situation #macrocytic anemia -recent check of B12 and Folate in October which were stable -has been getting IV hydration so may be a bit dilutional # hx of c diff: stool negative currently on po vanco while on abx for above, gi pathogen panel E.Coli, appears self limiting KUB stable #Dispo: pending, Palliative care team to see, she has some anemia -will heme stools Subjective: Skylar is feeling much better today, a bit weak. Objective: Vital Signs Temp Pulse Resp BP Pulse Ox 36.6 C 91 16 175/125 H 91 L 02/23/19 08:00 02/23/19 08:00 02/23/19 08:00 02/23/19 08:00 02/23/19 08:00 Laboratory Results 02/21/19 05:29 02/21/19 05:29 02/22/19 02/23/19 02/24/19 05:59 05:59 05:59 Intake Total 4372 650 Output Total 1200 400 Balance 3172 250 - Physical Exam Constitutional: no apparent distress, appears nourished, not in pain Eyes: PERRL Ears, Nose, Mouth, Throat: hearing normal Cardiovascular: regular rate and rhythym Respiratory: no respiratory distress Skin: warm, No normal color (pale) Musculoskeletal: generalized weakness Neurologic: AAOx3 Psychiatric: interacting appropriately ICD10 Worksheet Patient Problems: Problems Problem Status Onset Weakness Acute Abdominal pain Acute Acute delirium Acute Adrenal suppression Acute C. difficile diarrhea Acute 12/30/14 DVT prophylaxis Acute Diarrhea Acute Dizziness Acute Fever Acute Left ankle pain Acute Lethargy Acute Macrocytosis Acute Sepsis Acute Systolic murmur Acute Tachycardia Acute Temporal arteritis Acute Tongue ulceration Acute
[2019-02-23] MEDS: DORZOLAMIDE/TIMOLOL 10 ML OPHT.BTL EACHEYE SCH ×2 (08:45→22:52)
[2019-02-23] MEDS: INSULIN LISPRO 100 UNIT/ML SC SCH ×3 (08:57→18:34)
[2019-02-23 09:03] LABS: PLATELET COUNT 211 10^3/uL (150-400)
[2019-02-23] MEDS: CHOLECALCIFEROL VIT D3 1,000 UNITS TAB PO SCH (09:29)
[2019-02-23] MEDS: predniSONE 20 MG TAB PO SCH (09:29)
[2019-02-23] MEDS: MULTIVITAMINS 1 EACH TAB PO SCH (09:29)
[2019-02-23] MEDS: ASPIRIN 325 MG TAB PO SCH (09:29)
[2019-02-23] MEDS: CALCIUM CARB W/VIT D 500 MG TAB PO SCH ×2 (09:29→22:52)
--- NOTE | 2019-02-23 09:53 | ASMTLACE ---
LACE Length of stay for Answers: 2 days current admission Acuity / Level of Answers: Yes Care: Did the patient have an inpatient admission? Comorbidities - select Answers: Cerebrovascular disease all that apply (CVA, TIA, aneurysms, vasc ular dementia) Diabetes (uncontrolled or controlled) Social determinants Answers: Lack of community resources and/or lack of social support (no pcp, lives alone, transportation, talia d) Score: 11 Date Signed: 02/23/2019 09:52 AM Electronically Signed By:ELLA Valdez
[2019-02-23] MEDS ORDERED: CARVEDILOL 3.125 MG TAB PO ONE (11:51)
[2019-02-23] MEDS: hydrALAZINE 10 MG TAB PO PRN (17:34)
[2019-02-23] MEDS: LATANOPROST 0.005% 2.5 ML OPHT DROPS EACHEYE SCH (22:52)
[2019-02-24] MEDS: hydrALAZINE 10 MG TAB PO PRN (04:38)
[2019-02-24] MEDS: VANCOMYCIN 125 MG/2.5 ML UDL PO SCH ×3 (09:09→16:11)
[2019-02-24] MEDS: INSULIN LISPRO 100 UNIT/ML SC SCH ×2 (09:09→11:58)
[2019-02-24] MEDS: MULTIVITAMINS 1 EACH TAB PO SCH (09:55)
[2019-02-24] MEDS: ASPIRIN 325 MG TAB PO SCH (09:55)
[2019-02-24] MEDS: CARVEDILOL 3.125 MG TAB PO SCH (09:55)
[2019-02-24] MEDS: CHOLECALCIFEROL VIT D3 1,000 UNITS TAB PO SCH (09:56)
[2019-02-24] MEDS: predniSONE 20 MG TAB PO SCH (09:56)
[2019-02-24] MEDS: CALCIUM CARB W/VIT D 500 MG TAB PO SCH (09:57)
[2019-02-24] MEDS: DORZOLAMIDE/TIMOLOL 10 ML OPHT.BTL EACHEYE SCH (09:57)
[2019-02-24 11:46] VITALS: BP 119/58
--- NOTE | 2019-02-24 14:49 | HOSPPROG ---
Hospitalist Progress Note Assessment/Plan: 88 yo F with PMH that includes CVA, DM2, temporal arteritis presenting with generalized weakness progressing to where she is no longer able to care for herself and concerns for FTT. # generalized weakness -PT/OT -recommending home care #Fever -none further -blood culture and urine cultures show no growth # leukocytosis -history of chronic leukemia -GI pathogen panel shows positive Eaec #recent diagnosis of UTI on 02/12/19 -was treated w Keflex -ceftriaxone x 3 doses here -dc abx today -urine cx shows no growth # uncontrolled hypertension -doubled her dose of Coreg w improvement along w Norvasc #Sepsis on admission -resolved #CVA -has persistent vertigo from this -on aspirin therapy # temporal arteritis -resumed home dosing prednisone # DM2 -A1c is 7.4 -on sliding scale -daughter has noted the patient has not been eating much, Glargine on hold # acute metabolic encephalopathy resolve-she is alert, oriented to place, time, person and situation #macrocytic anemia -recent check of B12 and Folate in October which were stable -has been getting IV hydration so may be a bit dilutional -stool OB screen is negative # hx of c diff: stool negative currently on po vanco while on abx for above, gi pathogen panel E.Coli, appears self limiting KUB stable #Dispo: home, family has arranged multiple support systems for her at home Subjective: Skylar feels well, has no complaints, really wants to go home. Objective: Vital Signs Temp Pulse Resp BP Pulse Ox 36.6 C 76 16 119/58 L 91 L 02/24/19 11:44 02/24/19 11:44 02/24/19 11:44 02/24/19 11:44 02/24/19 11:44 Laboratory Results 02/24/19 04:45 02/21/19 05:29 02/23/19 02/24/19 02/25/19 05:59 05:59 05:59 Intake Total 650 1200 Output Total 400 Balance 250 1200 - Physical Exam Constitutional: no apparent distress, appears nourished Eyes: PERRL Ears, Nose, Mouth, Throat: hard of hearing Cardiovascular: regular rate and rhythym Respiratory: no respiratory distress, clear to auscultation Skin: warm, No normal color (pale) Musculoskeletal: generalized weakness Neurologic: AAOx3 Psychiatric: interacting appropriately ICD10 Worksheet Patient Problems: Problems Problem Status Onset Weakness Acute Abdominal pain Acute Acute delirium Acute Adrenal suppression Acute C. difficile diarrhea Acute 12/30/14 DVT prophylaxis Acute Diarrhea Acute Dizziness Acute Fever Acute Left ankle pain Acute Lethargy Acute Macrocytosis Acute Sepsis Acute Systolic murmur Acute Tachycardia Acute Temporal arteritis Acute Tongue ulceration Acute
--- NOTE | 2019-02-24 15:09 | PDIAF ---
- Diagnosis Diagnosis: weakness, recent UTI, anemia, diabetes, uncontrolled htn Code Status: Full Code - Medication Management Discharge Medications: electronically signed and located in the Home Medication List. - Orders Services needed: Home Care, Registered Nurse, Certified Property Claim Rep, Physical Therapy, Occupational Therapy Home Care Face to Face: I certify that this patient was under my care and that I had the required [id number] encounter meeting the encounter requirements on the discharge day. My findings support the fact that the patient is homebound as defined in Home Care Face to Face Continued: CMS Chapter 7 Medicare Benefits Manual 30.1.1 , The condition of the patient is such that there exists a normal inability to leave home and consequently, leaving home would require a considerable and taxing effort. Isolation Type: None Diet Recommendation: no restrictions on diet, ADA 2000 consistent carb Diet Texture: Regular Texture Diet Additional Instructions: home advisor to check blood pressure, has been high but much improved Coreg has been increased to 6.25 mg bid, Norvasc 5 mg is a new medication for you Glargine dose has been cut in half to 5 units, check glucoses tid ok to continue your eye drops as done before this admission prescriptions were sent to [facility] see your primary care doctor in the next 1-2 weeks, you need a repeat cbc, chemistry panel for follow up. you have anemia that needs monitoring you can take the oral Vancomycin for 3 more days - Labs/Radiology HCT/HGB Date: 03/01/19 - Follow Up Care Current Providers and Referrals: Rebeca Washington MD [Primary Care Provider] - As per Instructions
--- NOTE | 2019-02-24 16:21 | ASDISCHSUM ---
Discharge Information Plan Status:Home with Home Health Medically Cleared to Leave:02/24/2019 Discharge Date:02/24/2019 CM D/C Disposition:Home Health Service ADT D/C Disposition:[id number] Projected Discharge Date:02/23/2019 11:00 AM Transportation at D/C:Family Discharge Delay Reason: Follow-Up Date:02/23/2019 11:00 AM Discharge Slot: Final Diagnosis:generalized weakness Placement Information Referral Type:*Home Health Care Services Referral ID:[id number] Provider Name:[facility] [place] Address 1:[address] [place] [address] Address 2: City:[place] Selection Factors: State:[place] Patient Contact Information Contact Name:MEME Relationship:Daughter Address:[address] City:[place] Alternate Phone: State/Zip Code:[place] [address] Email: Financial Information Financial Class:Medicare Primary Plan Desc:MEDICARE INPATIENT Primary Plan Number:[id number] Secondary Plan Desc:[facility] Secondary Plan Number:[id number] Assessment Information [facility] CM Progress Note CM Note CM Note Notes: Chart reviewed and plan of care discussed with [facility]. Apparently there are plans in place for patient to ul[place]ately move to [place] and enter [place]. Currently lives alone and was found to be unresponsive and incontinent. Therapies unable to assess as patient had period of profound hypotension and STAT team was called, CM to follow for needs. Plan: TBD Date Signed: 02/21/2019 03:51 PM Electronically Signed By:Mechelle Garnett RN LACE DARYL Length of stay for Answers: 2 days current admission Acuity / Level of Answers: Yes Care: Did the patient have an inpatient admission? Comorbidities - select Answers: Cerebrovascular disease all that apply (CVA, TIA, aneurysms, vasc ular dementia) Diabetes (uncontrolled or controlled) Social determinants Answers: Lack of community resources and/or lack of social support (no pcp, lives alone, transportation, talia d) Score: 11 Date Signed: 02/23/2019 09:52 AM Electronically Signed By:ELLA Valdez [facility] CM Progress Note CM Note CM Note Notes: Met with pt and dtrYue. Pt is not agreeable to SNF but will accept homecare and some private pay care. Pt has 3 dtrs, 1 in [place], 1 (Layla) in [place], who is the primary caregiver, and 1 dtr in [place] where pt will be moving next month. Pt reviewed hc list and wants referral sent to [facility]. Dtrs want xtra care for 1 week when Layla is out of town. CM brought in [facility] and they would like CM to contact [facility]. Referrals sent and [facility] can accept. [facility] will call Layla to discuss needs and what they can offer. DC Plan: Homecare/ [facility] (RN/PT/OT/MINE BOSS) + private pay non skilled care Date Signed: 02/22/2019 01:20 PM Electronically Signed By:Drea Leach RN Case Management Discharge Plan Note Case Management Discharge Discharge Order Complete? Answers: Yes Patient to Obtain Answers: via Family Medications Transportation Arranged Answers: Family/Friends Transport will Pick (Date 02/24/2019 04:30 PM & Time) Faxed Final Orders Answers: Yes Agency/Facility Transfer Answers: Yes Report Printed & Faxed to Receiving Agency Family Notified Answers: Yes Notes: CM called dtr Discharge Comments Notes: CM spoke with pt in the room and with pt's dtr Layla who lives in [place] and is primary caregiver. Pt lives alone and is adamantly refusing SNF. Pt confirmed plans with Layla in the room to relocate to assisted living in [place] in 30 days and is therefore refusing Palliative care at this time. CM advised pt and dtr that she could engage palliative care through her PCP office in [place] once she gets settled. For this DC, CM communicated to dtr that hospitalist feels SNF would be most appropriate given recent three admissions in two months, but pt is declining. PT is recommending HHC and CM arranged for [facility] RN/PT/OT/MINE BOSS as pt has worked with them in the past. Dtr is also contacting [facility] for private duty care for a few hours a day and pt is agreed. No further CM needs noted at this time. Date Signed: 02/24/2019 04:19 PM Electronically Signed By:Nora Castro. RN Intervention Information Intervention Type:*Incorrect Registration Date of Service:02/21/2019 10:29 AM Patient Type:Observation Staff Member:Yodit Vance Hours: Discipline: Severity: Comment: Intervention Type:*IM-Signed Date of Service:02/24/2019 03:44 PM Patient Type:Inpatient Staff Member:Aleta Casanova Hours: Discipline: Severity: Comment:
--- NOTE | 2019-02-24 19:25 | GDS ---
[f rep st] DISCHARGE SUMMARY DISCHARGE DIAGNOSES: 1. Generalized weakness. 2. Fever. 3. Leukocytosis. 4. Recent diagnosis of urinary tract infection on February 12, 2019. 5. Uncontrolled hypertension. 6. Sepsis. 7. History of cerebrovascular accident. 8. Temporal arteritis. 9. Diabetes mellitus, type 2. 10. Acute metabolic encephalopathy. 11. Anemia. 12. History of Clostridium difficile. HISTORY OF PRESENT ILLNESS: Briefly, the patient is an 88-year-old female with past medical history that includes CVA and diabetes, type 2, as well as temporal arteritis. She presented the emergency room with generalized weakness and was unable to care for herself. The recommendation was to get her higher level of living, concern that she may end up returning to the emergency room. Case Management has spoken to the patient and her daughter. Her doctor can arrange for her to go to a detention facility if she does not do well at home. In addition, she will be getting home care from [facility]. HOSPITAL COURSE: 1. Generalized weakness. She was evaluated by PT and OT. She will be getting home care. 2. Fever, none further. Blood cultures and urine culture showed no growth. 3. Leukocytosis. She has a history of chronic leukemia. 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 4. Recent diagnosis of urinary tract infection. She was treated ceftriaxone during her stay. Her urine culture showed no growth. 5. Uncontrolled hypertension. This is markedly improved with doubling up her dose of Coreg and now with added Norvasc. 6. Sepsis, resolved. 7. CVA. Has residual vertigo from this, on aspirin therapy. 8. Temporal arteritis. Resumed her home dosing of prednisone. 9. Diabetes, type 2. She was treated with sliding scale. She has not been eating much. We cut her dose of glargine in half. 10. Acute metabolic encephalopathy, resolved. 11. Anemia. Her hemoglobin, hematocrit are lower than her baseline. Her stool occult blood screen is negative. She had a recent check of B12 and folate in October, which were stable. Recommending she get a repeat H and H with her PCP. 12. History of C difficile. Her stool is negative for this. She was on p.o. vancomycin antibiotics, recommending that she does take this for a few more days. Her KUB is stable. Her GI pathogen panel shows E coli, which is self- limiting. DISCHARGE CONDITION: Stable. Blood pressure is 119/58, heart rate is 76, respiratory rate is 16, O2 sats on room air 91%, temperature 36.6 Celsius. MEDICATIONS AT DISCHARGE: Please see the EMR. DISCHARGE INSTRUCTIONS: 1. For home care to monitor her blood pressure. 2. To cut her glargine dose in half. 3. To see her primary care doctor in the next 1 to 2 weeks. 4. To continue her oral vancomycin for 3 more days. Greater than 30 minutes discharging and coordinating her care. Copy requested to: Dr. Washington /[id number]/MODL MTDD
== END 2019-02-24 16:49 | disposition home health service (06) | DRG 871 ==
LOC: OBSVTOIN 20:52 → F3E 21:10
PROVIDERS: ADMIT Internal Medicine; ATTEND Internal Medicine
DX: A41.9 Sepsis, unspecified organism (principal); G93.41 Metabolic encephalopathy; N39.0 Urinary tract infection, site not specified; E11.9 Type 2 diabetes mellitus without complications; I69.398 Other sequelae of cerebral infarction; R42 Dizziness and giddiness; I10 Essential (primary) hypertension; C95.90 Leukemia, unspecified not having achieved remission; M31.6 Other giant cell arteritis; M54.9 Dorsalgia, unspecified; Z79.4 Long term (current) use of insulin; Z87.891 Personal history of nicotine dependence; Z79.52 Long term (current) use of systemic steroids
CPT/HCPCS: 84484-ER; 97116-GP; 97161-GP; 97166-GO; 97535-GO; J0696; J1815; J7512

== ENCOUNTER 2019-03-21 13:51 | Emergency (ER) | payer OTHER, BC | END 2019-03-21 16:06 | disposition home or self-care (01) ==

== ENCOUNTER 2019-03-23 15:03 | Inpatient (IN) | payer OTHER, BC | END 2019-03-27 14:15 | LOC: F1N 17:54 ==